=== PATIENT | female | born 1990 | race Hispanic/Latino ===

== ENCOUNTER 2018-02-25 02:16 | Emergency (ER) | payer OTHER ==
[2018-02-25 03:26] LABS: Absolute Lymphocytes (CBC) 1.8 K/uL (0.7-4.9); Absolute Monocytes 0.6 K/uL (0.1-1.3); Basophils % 0.6 % (0-1.3); Eosinophils % 0.7 % (0-4.4); Hematocrit 30.3 % (36.0-45.0); Lymphocytes % 20.7 % (15.3-44.8); MCH 31.7 pg (27.0-35.0); MCV 90.8 fL (80-100); MPV 8.3 fL (7.6-11.3); Monocytes % 7.5 % (3.3-12.3); RBC Red Blood Cell Count 3.33 M/uL (3.86-4.86)
[2018-02-25] MEDS ORDERED: PROMETHAZINE 25 MG/ML VIAL ONE (03:29)
[2018-02-25] MEDS ORDERED: ACETAMINOPHEN 500 MG TAB ONE (03:29)
[2018-02-25] MEDS ORDERED: NA CHLORIDE 0.9% 500 ML ONE (03:29)
[2018-02-25] MEDS ORDERED: NA CHLORIDE 0.9% 50 ML IV ONE (03:30)
[2018-02-25 03:48] LABS: ALT/SGPT 20 U/L (12-78); AST/SGOT 20 U/L (15-37); Albumin 2.6 g/dL (3.4-5.0); Alkaline Phosphatase 79 U/L (45-117); BUN Blood Urea Nitrogen 8 mg/dL (7-18); Bicarbonate 25 mmol/L (21-32); Bilirubin Direct < 0.1 mg/dL (0-0.2); Bilirubin Total 0.2 mg/dL (0.2-1.0); Glucose Level 76 mg/dL (74-106); Potassium 3.6 mmol/L (3.5-5.1); Protein, Total 6.5 g/dL (6.4-8.2); Sodium Level 142 mmol/L (136-145)
[2018-02-25 03:52] LABS: Urine Blood TRACE (NEG); Urine Glucose NEGATIVE (NEG); Urine Protein NEGATIVE (NEG); Urine Specific Gravity >1.030 (1.005-1.030); Urine pH 6.5 (5.0-7.0)
[2018-02-25 03:53] LABS: Urine Amorphous Sediment 3+ /HPF (NONE SEEN); Urine Bacteria <20 /HPF (<20); Urine Culture Reflex Order NOT NEEDED; Urine RBC NONE SEEN /HPF (NONE SEEN)
--- NOTE | 2018-02-25 05:43 | ER ---
Nurse's Notes [facility] Name: Felicity Anaya Age: 27 yrs Sex: Female : 1990 Arrival Date: 02/25/2018 Time: 02:17 Bed 17 Private MD: Diagnosis: Lower abdominal pain in ;lower pelvic pain in Presentation: 02/25 02:20 Presenting complaint: Patient states: lower abdominal pain since last night and cc3 vomiting once. Transition of care: patient was not received from another setting of care. Onset of symptoms was February 24, 2018. Risk Assessment: Do you want to hurt yourself or someone else? Patient reports no desire to harm self or others. Initial Sepsis Screen: Does the patient meet any 2 criteria? No. Patient's initial sepsis screen is negative. Does the patient have a suspected source of infection? No. Patient's initial sepsis screen is negative. Care prior to arrival: None. 02:20 Method Of Arrival: Ambulatory cc3 02:20 Acuity: MARCOS 3 cc3 Triage Assessment: 02:20 General: Appears in no apparent distress. comfortable, Behavior is calm, cooperative, cc3 appropriate for age. Pain: Complains of pain in lower abdominal pain Pain currently is 8 out of 10 on a pain scale. Quality of pain is described as aching. EENT: No signs and/or symptoms were reported regarding the EENT system. Neuro: Level of Consciousness is awake, alert, obeys commands, Oriented to person, place, time, situation, Appropriate for age. Cardiovascular: Denies chest pain. Respiratory: Airway is patent Respiratory effort is even, unlabored, Respiratory pattern is regular, symmetrical. GI: Reports lower abdominal pain, vomiting. : No signs and/or symptoms were reported regarding the genitourinary system. Derm: No signs and/or symptoms reported regarding the dermatologic system. Musculoskeletal: Circulation, motion, and sensation intact. Range of motion: intact in all extremities. TELEPHONIC RN: 02:20 patient said she is 5 months cc3 Historical: - Allergies: 02:20 No Known Allergies; cc3 - Home Meds: 02:20 None [Active]; cc3 - PMHx: 02:20 Ovarian cyst; cc3 - Immunization history:: Adult Immunizations up to date. - Social history:: Smoking status: Patient/guardian denies using tobacco, never smoked. - Ebola Screening: : No symptoms or risks identified at this time. - Family history:: not pertinent. - Hospitalizations: : No recent hospitalization is reported. The patient was recently seen at [facility]. Screenin:20 Abuse screen: Denies threats or abuse. Denies injuries from another. Nutritional cc3 screening: No deficits noted. Tuberculosis screening: No symptoms or risk factors identified. Fall Risk Ambulatory Aid- None/Bed Rest/Nurse Assist (0 pts). Gait- Normal/Bed Rest/Wheelchair (0 pts) Mental Status- Oriented to own ability (0 pts). Assessment: 02:20 GI: Bowel sounds present X 4 quads. Abd is soft and non tender X 4 quads. cc3 02:25 General: see triage assessment. cc3 03:30 Reassessment: Patient appears in no apparent distress at this time. Patient and/or cc3 family updated on plan of care and expected duration. Pain level reassessed. Patient is alert, oriented x 3, equal unlabored respirations, skin warm/dry/pink. 04:40 Reassessment: Patient appears in no apparent distress at this time. Patient and/or cc3 family updated on plan of care and expected duration. Pain level reassessed. Patient is alert, oriented x 3, equal unlabored respirations, skin warm/dry/pink. Patient came back from ultrasound department. 05:50 Reassessment: Patient appears in no apparent distress at this time. Patient and/or cc3 family updated on plan of care and expected duration. Pain level reassessed. Patient is alert, oriented x 3, equal unlabored respirations, skin warm/dry/pink. Dr. Maguire discharged the patient home no prescription was given. IV cannula removed and patient left ER vitally stable and ambulatory with her . Patient states feeling better. Vital Signs: 02:20 BP 112 / 65; Pulse 88; Resp 18 S; Temp 98.9(O); Pulse Ox 100% on R/A; Weight 80.74 kg; cc3 Height 5 ft. 3 in. (160.02 cm); 03:45 BP 104 / 58; Pulse 80; Resp 18 S; Pulse Ox 98% on R/A; cc3 04:30 BP 103 / 53; Pulse 83; Resp 18 S; Pulse Ox 97% on R/A; cc3 05:30 BP 104 / 67; Pulse 81; Resp 16 S; Pulse Ox 98% on R/A; cc3 02:20 Body Mass Index 31.53 (80.74 kg, 160.02 cm) cc3 ED Course: 02:17 Patient arrived in ED. ag3 02:20 Arm band placed on left wrist. cc3 02:20 Patient has correct armband on for positive identification. Bed in low position. Call cc3 light in reach. Side rails up X 1. 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 Pulse ox on. NIBP on. 02:38 Rebekah Price is Primary Nurse. cc3 02:38 Cj Maguire MD is Attending Physician. wa 02:40 Triage completed. cc3 03:00 Inserted saline lock: 20 gauge in right antecubital area, using aseptic technique. cc3 Blood collected. 04:16 Patient moved back from ultrasound. lisa 04:19 OB Limited In Process Unspecified. EDMS 05:50 No provider procedures requiring assistance completed. IV discontinued, intact, cc3 bleeding controlled, No redness/swelling at site. Pressure dressing applied. Administered Medications: 03:20 Drug: Tylenol 1000 mg Route: PO; cc3 04:00 Follow up: Response: No adverse reaction; Pain is decreased cc3 03:25 Drug: Phenergan 12.5 mg Route: IVP; Site: right antecubital; cc3 04:00 Follow up: Response: No adverse reaction cc3 03:25 Drug: NS 0.9% 500 ml Route: IV; Rate: bolus; Site: right antecubital; cc3 04:20 Follow up: Response: No adverse reaction; IV Status: Completed infusion; IV Intake: cc3 500ml Intake: 04:20 IV: 500ml; Total: 500ml. cc3 Outcome: 05:43 Discharge ordered by . wa 05:50 Discharged to home ambulatory. cc3 05:50 Condition: stable 05:50 Discharge instructions given to patient, family, Instructed on discharge instructions, follow up and referral plans. Demonstrated understanding of instructions, follow-up care. 05:58 Patient left the ED. cc3 Signatures: Dispatcher [employer] EDMS Brain Vázquez jd, William, MD MD wa Cordel, Charlene cc3 Bonnie Graves ag3
--- NOTE | 2018-02-25 05:44 | EDPHYS ---
Physician Documentation [facility] Name: Felicity Anaya Age: 27 yrs Sex: Female : 1990 Arrival Date: 02/25/2018 Time: 02:17 Bed 17 Private MD: ED Physician Cj Maguire HPI: 02/25 05:34 This 27 yrs old Female presents to ER via Ambulatory with complaints of wa Abdominal Pain. 05:34 The patient presents with abdominal pain in the lower abdomen. Onset: The wa symptoms/episode began/occurred yesterday. The symptoms do not radiate. Associated signs and symptoms: Pertinent positives: nausea, Pertinent negatives: diarrhea, vomiting. The symptoms are described as achy. Modifying factors: The symptoms are alleviated by nothing, the symptoms are aggravated by nothing. Severity of pain: At its worst the pain was moderate in the emergency department the pain has improved. The patient has not experienced similar symptoms in the past. The patient has not recently seen a physician. pt is 5 months with good care. denies vag bleed or discharge. DIRECTOR CALL: 02:20 patient said she is 5 months cc3 Historical: - Allergies: 02:20 No Known Allergies; cc3 - Home Meds: 02:20 None [Active]; cc3 - PMHx: 02:20 Ovarian cyst; cc3 - Immunization history:: Adult Immunizations up to date. - Social history:: Smoking status: Patient/guardian denies using tobacco, never smoked. - Ebola Screening: : No symptoms or risks identified at this time. - Family history:: not pertinent. - Hospitalizations: : No recent hospitalization is reported. The patient was recently seen at [facility]. ROS: 05:36 Constitutional: Negative for fever, chills, and weight loss, Eyes: Negative for injury, wa pain, redness, and discharge, ENT: Negative for injury, pain, and discharge, Neck: Negative for injury, pain, and swelling, Cardiovascular: Negative for chest pain, palpitations, and edema, Respiratory: Negative for shortness of breath, cough, wheezing, and pleuritic chest pain, Back: Negative for injury and pain, : Negative for injury, bleeding, discharge, and swelling, MS/Extremity: Negative for injury and deformity, Skin: Negative for injury, rash, and discoloration, Neuro: Negative for headache, weakness, numbness, tingling, and seizure, Psych: Negative for depression, anxiety, suicide ideation, homicidal ideation, and hallucinations. 05:36 Abdomen/GI: Positive for abdominal pain, nausea, vomiting, and diarrhea, nausea, Negative for vomiting, diarrhea, constipation. 05:36 All other systems are negative. Exam: 05:36 Constitutional: This is a well developed, well nourished patient who is awake, alert, wa and in no acute distress. Head/Face: Normocephalic, atraumatic. Eyes: Pupils equal round and reactive to light, extra-ocular motions intact. Lids and lashes normal. Conjunctiva and sclera are non-icteric and not injected. Cornea within normal limits. Periorbital areas with no swelling, redness, or edema. ENT: Nares patent. No nasal discharge, no septal abnormalities noted. Tympanic membranes are normal and external auditory canals are clear. Oropharynx with no redness, swelling, or masses, exudates, or evidence of obstruction, uvula midline. Mucous membranes moist. Neck: Trachea midline, no thyromegaly or masses palpated, and no cervical lymphadenopathy. Supple, full range of motion without nuchal rigidity, or vertebral point tenderness. No Meningismus. Chest/axilla: Normal chest wall appearance and motion. Nontender with no deformity. No lesions are appreciated. Cardiovascular: Regular rate and rhythm with a normal S1 and S2. No gallops, murmurs, or rubs. Normal PMI, no JVD. No pulse deficits. Respiratory: Lungs have equal breath sounds bilaterally, clear to auscultation and percussion. No rales, rhonchi or wheezes noted. No increased work of breathing, no retractions or nasal flaring. Back: No spinal tenderness. No costovertebral tenderness. Full range of motion. Skin: Warm, dry with normal turgor. Normal color with no rashes, no lesions, and no evidence of cellulitis. MS/ Extremity: Pulses equal, no cyanosis. Neurovascular intact. Full, normal range of motion. Neuro: Awake and alert, GCS 15, oriented to person, place, time, and situation. Cranial nerves II-XII grossly intact. Motor strength 5/5 in all extremities. Sensory grossly intact. Cerebellar exam normal. Normal gait. Psych: Awake, alert, with orientation to person, place and time. Behavior, mood, and affect are within normal limits. 05:37 Abdomen/GI: Inspection: abdomen appears normal, Bowel sounds: normal, in all quadrants, wa Palpation: soft, in all quadrants, mild abdominal tenderness, in the suprapubic area, right lower quadrant and left lower quadrant. Vital Signs: 02:20 BP 112 / 65; Pulse 88; Resp 18 S; Temp 98.9(O); Pulse Ox 100% on R/A; Weight 80.74 kg; cc3 Height 5 ft. 3 in. (160.02 cm); 03:45 BP 104 / 58; Pulse 80; Resp 18 S; Pulse Ox 98% on R/A; cc3 04:30 BP 103 / 53; Pulse 83; Resp 18 S; Pulse Ox 97% on R/A; cc3 05:30 BP 104 / 67; Pulse 81; Resp 16 S; Pulse Ox 98% on R/A; cc3 02:20 Body Mass Index 31.53 (80.74 kg, 160.02 cm) 3 MDM: 02:38 Patient medically screened. or 05:37 Differential diagnosis: r/o infection. check pelvis US to assess for pathology. or Data reviewed: vital signs, nurses notes. 05:39 Test interpretation: by ED physician or midlevel provider: labs noted for anemia. wa otherwise wnl. Pelvic US FHR 147. no acute process . 02/25 02:50 Order name: Urine Dipstick--Ancillary (enter results); Complete Time: 04:09 nj 02/25 02:50 Order name: Urine --Ancillary (enter results); Complete Time: 04:10 nj 02/25 02:59 Order name: Basic Metabolic Panel; Complete Time: 04:10 or 02/25 02:59 Order name: CBC with Diff; Complete Time: 04:10 or 02/25 02:59 Order name: Urine Microscopic Only; Complete Time: 04:10 or 02/25 02:59 Order name: LFT's; Complete Time: 04:09 or 02/25 02:59 Order name: IV Saline Lock; Complete Time: 03:21 or 02/25 02:59 Order name: Labs collected and sent; Complete Time: 03:21 or 02/25 02:59 Order name: NPO; Complete Time: 03:34 or 02/25 04:19 Order name: OB Limited EDNY 02/25 02:59 Order name: Urine Dipstick-Ancillary (obtain specimen); Complete Time: 03:24 wa Administered Medications: 03:20 Drug: Tylenol 1000 mg Route: PO; cc3 04:00 Follow up: Response: No adverse reaction; Pain is decreased cc3 03:25 Drug: Phenergan 12.5 mg Route: IVP; Site: right antecubital; cc3 04:00 Follow up: Response: No adverse reaction cc3 03:25 Drug: NS 0.9% 500 ml Route: IV; Rate: bolus; Site: right antecubital; cc3 04:20 Follow up: Response: No adverse reaction; IV Status: Completed infusion; IV Intake: cc3 500ml Disposition: 02/25/18 05:43 Discharged to Home. Impression: Lower abdominal pain in , lower pelvic pain in . - Condition is Stable. - Discharge Instructions: Abdominal Pain During . - Medication Reconciliation Form, Thank You Letter, Antibiotic Education, Prescription Opioid Use form. - Follow up: Private Physician; When: 2 - 3 days; Reason: Recheck today's complaints. - Problem is new. - Symptoms have improved. Signatures: Dispatcher [employer] [facility] Cj Maguire MD MD wa Cordel, Charlene cc3 Corrections: (The following items were deleted from the chart) 04:19 03:00 Pelvis Complete+US.RAD.BRZ ordered. [facility] EDNY 05:58 05:43 02/25/2018 05:43 Discharged to Home. Impression: Lower abdominal pain in cc3 ; lower pelvic pain in . Condition is Stable. Forms are Medication Reconciliation Form, Thank You Letter, Antibiotic Education, Prescription Opioid Use. Follow up: Private Physician; When: 2 - 3 days; Reason: Recheck today's complaints. Problem is new. Symptoms have improved. wa
[2018-02-25 06:02] VITALS: TEMP 98.9
[2018-02-25 06:04] VITALS: BP 103/53; O2SAT 97
--- NOTE | 2018-02-25 09:08 | RAD REPORT ---
EXAM DESCRIPTION: US - OB Limited - 02/25/2018 4:19 am CLINICAL HISTORY: , right-sided pelvic pain Preliminary findings provided at the time of the study. COMPARISON: None. TECHNIQUE: Limited OB sonography performed. FINDINGS: Single intrauterine gestation was confirmed. Heart rate was 146 BPM. Placenta is anterior with no acute finding. Right adnexa assessment shows mostly bowel. No suspicious findings noted though examination is consid ered limited. Ovary was not seen. Appendix was not seen. IMPRESSION: Single intrauterine gestation with normal heart rate. No placenta abnormality seen. Feta l anatomy was not further evaluated. No gross abnormality of the right adnexa which was mostly limited by bowel. Ovary and appendix were n ot visualized.
== END 2018-02-25 05:58 | disposition home or self-care (01) ==
LOC: ER 02:16
DX: O26.892 Other specified pregnancy related conditions, second trimester (principal)
CPT/HCPCS: 36415; 76815; 80048; 80076; 81003; 81015; 81025; 85025; 96361; 96374; 99285; J2550

== ENCOUNTER 2019-01-26 17:33 | Emergency (ER) | payer OTHER, SELFPAY ==
--- OUTSIDE RECORDS SUMMARY | 2019-01-26 17:35 | XMS REPORT ---
:1990 Author Organization [facility] Address [address] Hernandez [address] [place] [id number] Care Team Providers Name Role Phone Unavailable Unavailable Unavailable Problems This patient has no known problems. Allergies, Adverse Reactions, Alerts This patient has no known allergies or adverse reactions. Medications This patient has no known medications.
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
[2019-01-26 18:48] VITALS: BP 132/82; TEMP 98.3; O2SAT 100
== END 2019-01-26 18:43 | disposition home or self-care (01) ==
LOC: ER 17:33
DX: S16.1XXA Strain of muscle, fascia and tendon at neck level, initial encounter (principal); V49.40XA Driver injured in collision with unspecified motor vehicles in traffic accident, initial encounter
CPT/HCPCS: 99281

== ENCOUNTER 2019-08-06 14:59 | Emergency (ER) | payer OTHER ==
--- OUTSIDE RECORDS SUMMARY | 2019-08-06 15:08 | XMS REPORT | Summary of Care ---
:1990 Author Organization [facility] Address [address] [place] [id number] Care Team Providers Name Role Phone Alyse Stuart Primary Care Provider Reason for Referral (Routine) Status Reason Specialty Diagnoses / Referred By Referred To Procedures Contact Contact New Request Maternal Diagnoses Supervision of high risk in first trimester Alyse Stuart Medicine Procedures CONSULT MATERNAL MEDICINE ULTRASOUND Preferred Location: ODALIS Betancourt [address] [place] [address] Reason for Visit Reason Comments Care Encounter Details Date Type Department Care Team Description 06/25/2019 Routine [facility]- Alyse Stuart Supervision of high risk in first trimester (Primary Dx); Visit ODALIS Betancourt Previous delivery affecting , antepartum; [address] [facility] [address] [facility] Desire (vaginal after ) trial; [facility] History of ; [address] [place], [place] Multiparity; [phone] Obesity in , antepartum [phone] Allergies No Known Allergiesdocumented as of this encounter (statuses as of 06/25/2019) Medications Medication Sig Dispensed Refills Start Date End Date Status PNV 67-iron ps-folate Take 1 capsule by 30 capsule 11 05/22/2019 Active no.1-dha (VITAFOL mouth daily. ULTRA) 29 mg iron- 1 mg-200 mg CapIndications: Supervision of high risk in first trimester vit Take 1 Packet by 30 Each 6 05/28/2019 Active 62-jire-ebuxe-dha mouth daily. (SELECT-OB + DHA) 29 mg iron-1 mg -250 mg combo packIndications: Supervision of high risk in first trimester documented as of this encounter (statuses as of 06/25/2019) Active Problems Problem Noted Date Abnormal glucose affecting 05/28/2019 Encounter for immunization 04/30/2019 Desires (vaginal after ) trial 04/30/2019 History of 07/01/2018 Multiparity 05/02/2018 Supervision of high risk in first trimester 11/08/2017 Obesity in , antepartum 11/08/2017 Previous delivery affecting , antepartum 11/08/2017 Overview: Per EPIC notes, pt requested c/s due to painful ovarian cysts that was removed during c/s-ROR for MOTLEY requested History of intrauterine in previous 11/08/2017 Overview: Due to nuchal cord and umbilical knot at 37/1 (see EPIC records from 2010) History of ovarian cyst 11/08/2017 Estimated Date of Delivery Comments Yes 01/01/2020 Based on last menstrual period of 03/27/2019 (Approximate) documented as of this encounter (statuses as of 06/25/2019) Resolved Problems Problem Noted Date Resolved Date Liveborn infant by vaginal delivery 07/02/2018 04/30/2019 Vaginal after , delivered, current 07/02/2018 04/30/2019 hospitalization Obesity (BMI 30-39.9) 07/01/2018 04/30/2019 39 weeks gestation of 07/01/2018 04/30/2019 GBS (group B Streptococcus carrier), +RV culture, currently 06/16/20182018 Needs flu shot 04/18/2018 04/30/2019 Need for Tdap vaccination 04/18/2018 04/30/2019 Acute nasopharyngitis 04/18/2018 04/30/2019 Pelvic mass 10/23/2014 11/08/2017 Ovarian mass 10/21/2014 10/23/2014 Immunizations up to date 06/28/2014 10/23/2014 History of section 06/28/2014 11/08/2017 First degree perineal laceration during delivery 03/30/2011 10/23/2014 Overview: ICD10 Diagnosis Term Computerized Table Cutter Utility IUFD (intrauterine ) 03/30/2011 10/23/2014 documented as of this encounter (statuses as of 06/25/2019) Immunizations Name Administration Dates Next Due HEPATITIS A 03/17/2006 Influenza Virus Vaccine Quad .5 mL IM 6+ MO 04/30/2019, 04/18/2018 Influenza Virus Vaccine Quad IM 3+ YRS 10/23/2014 Meningococcal Vaccine 03/17/2006 Tdap 04/18/2018, 05/16/2012 documented as of this encounter Social History Tobacco Use Types Packs/Day Years Used Date Never Smoker Smokeless Tobacco: Never Used Alcohol Use Drinks/Week oz/Week Comments Not Currently Estimated Date of Delivery Comments Yes 01/01/2020 Based on last menstrual period of 03/27/2019 (Approximate) Sex Assigned at Date Recorded Not on file Job Start Date Occupation Industry Not on file Not on file Not on file Travel History Travel Start Travel End No recent travel history available. documented as of this encounter Last Filed Vital Signs Vital Sign Reading Time Taken Comments Blood Pressure 116/70 06/25/2019 9:09 AM LABORER SYRUP MACHINE Pulse 85 06/25/2019 9:09 AM LABORER SYRUP MACHINE Temperature 36.7 C (98.1 F) 06/25/2019 9:09 AM LABORER SYRUP MACHINE Respiratory Rate 16 06/25/2019 9:09 AM LABORER SYRUP MACHINE Oxygen Saturation - - Inhaled Oxygen Concentration - - Weight 89 kg (196 lb 2 oz) 06/25/2019 9:09 AM LABORER SYRUP MACHINE Height 157.5 cm (5' 2") 06/25/2019 9:09 AM LABORER SYRUP MACHINE Body Mass Index 35.87 06/25/2019 9:09 AM LABORER SYRUP MACHINE documented in this encounter Progress Notes Alyse Stuart R, TEACHING MANAGER - 06/25/2019 8:30 AM CST Chief complaint: Chief Complaint Patient presents with Care HPI CC: Follow Up Visit Felicity Anaya is a 29 year old, , /White female. Patient's last menstrual period was 03/27/2019 (approximate). She is 12w6d with an intrauterine . Her estimated date of delivery is 01/01/2020, by Last Menstrual Period. She has no complaints today. She reports +FM and deniescontractions, LOF and bleeding today.Patient denies current or past physical, sexual or emotional abuse. Histories OB History Para Term AB Living 4 3 3 0 2 SAB TAB Ectopic Multiple Live Births 2 # Outcome Date GA Lbr Antwon/2nd Weight Sex Delivery Anes PTL Lv 4 Current 3 Term 07/01/18 39w0d M NORMAL SPONT HENNA 2 Term 01/23/13 40w0d M SEC HENNA 1 Term 03/30/11 37w1d VAGINAL FD Past Medical History: Diagnosis Date STD (sexually transmitted disease) 2010 chlamydia, treated Family History Problem Relation Age of Onset Diabetes Mother No Significant Medical Problems Father No Significant Medical Problems Sister No Significant Medical Problems Brother Hypertension Maternal Aunt No Significant Medical Problems Maternal Uncle No Significant Medical Problems Paternal Aunt No Significant Medical Problems Paternal Uncle Heart Maternal Grandmother Heart Maternal Grandfather No Significant Medical Problems Paternal Grandmother No Significant Medical Problems Paternal Grandfather Arthritis NoFHx Asthma NoFHx defects NoFHx Breast Cancer NoFHx Colon Cancer NoFHx Ovarian Cancer NoFHx Uterine Cancer NoFHx Cancer NoFHx Depression NoFHx Genetic NoFHx High cholesterol NoFHx Mental retardation NoFHx Neurological NoFHx Other - see comments NoFHx Osteoporosis NoFHx Psychiatry NoFHx Family Status Relation Name Status Mo Alive Fa Sis Alive Bro Alive MAunt Alive MUnc Alive PAunt Alive PUnc Alive MGMo MGFa PGMo PGFa NoFHx (Not Specified) Past Surgical History: Procedure Laterality Date SECTION 2012 EXPLORATORY LAPAROTOMY N/A 10/21/2014 Surgeon: Salty Renae MD; Location: [facility] MASS EXCISION 10/21/2014 & 10/2015 Social History Socioeconomic History Marital status: Spouse name: Not on file Number of children: Not on file Years of education: Not on file Highest education level: Not on file Occupational History Not on file Social Needs Financial resource strain: Not on file Food insecurity: Worry: Not on file Inability: Not on file Transportation needs: Medical: Not on file Non-medical: Not on file Tobacco Use Smoking status: Never Smoker Smokeless tobacco: Never Used Substance and Sexual Activity Alcohol use: Not Currently Drug use: No Sexual activity: Yes Partners: Male control/protection: None Comment: last intercourse 04/08/2019 Lifestyle Physical activity: Days per week: Not on file Minutes per session: Not on file Stress: Not on file Relationships Social connections: Talks on phone: Not on file Gets together: Not on file Attends protestant service: Not on file Active member of club or organization: Not on file Attends meetings of clubs or organizations: Not on file Relationship status: Not on file Intimate partner violence: Fear of current or ex partner: Not on file Emotionally abused: Not on file Physically abused: Not on file Forced sexual activity: Not on file Other Topics Concern Not on file Social History Narrative Denies physical and sexual abuse. Evangelical preference none. Patient lives with mother and children. Social History Substance and Sexual Activity Sexual Activity Yes Partners: Male control/protection: None Comment: last intercourse 04/08/2019 Labs No new labs Radiology Radiology pending. Allergies Felicity has No Known Allergies. Medications Felicity has a current medication list which includes the following prescription( s): vit 41-cmpz-tuari-dha and pnv 67-iron ps-folate no.1-dha. Review of Systems Eyes: Negative for visual disturbance. Cardiovascular: Negative for leg swelling. Gastrointestinal: Negative for abdominal pain, nausea and vomiting. Genitourinary: Negative for vaginal bleeding, vaginal discharge and pelvic pain. Neurological: Negative for headaches. BP 116/70 (BP Location: Right arm, Patient Position: Sitting, BP CUFF SIZE: Adult Medium) | Pulse 85 | Temp 36.7 C (98.1 F) (Oral) | Resp 16 | Ht 5 ' 2" (1.575 m) | Wt 196 lb 2 oz (89 kg) | LMP 03/27/2019 (Approximate) | BMI 35.87 kg/m Pregravid BMI: 32.2 Physical Exam PHYSICAL: General Exam: Neurological: Normal Abdomen: Normal Extremities: Normal Pelvic Exam: Uterus: 14cm Weeks Assessment/Plan Supervision of high risk in first trimester (primary encounter diagnosis) Previous delivery affecting , antepartum Desires (vaginal after ) trial History of Multiparity Comment: Routine Visit Plan: POCT URINALYSIS GLUCOSE & PROTEIN Denies zika virus risk, signs and symptoms such as fever,rash,joint pain, conjunctivitis (red eyes), muscle pain, headaches; outside [place] travel to areas affected by zika, and FOB exposure to zika.Educated on use of mosquito repellent. Obesity in , antepartum Comment: See BMI Plan: Patient encouraged to limit weight gain and sensible diet. Return to clinic in 2 weeks. Discussed treatment options. Medications as ordered. Reviewed patient instructions and provided printed copy. This visit did not involve counseling and coordination that comprised more than 50% of the visit time. ODALIS Soliman 06/25/2019 9:58 AM documented in this encounter Plan of Treatment Date Type Specialty Care Team Description 07/09/2019 Routine Visit OB Satellites Alyse Stuart FNP [address] [place] [address] [phone] Health Maintenance Due Date Last Done Comments PAP SMEAR 11/08/2020 11/08/2017, 04/29/2011 DTaP,Tdap,and Td Vaccines (3 04/18/2028 04/18/2018, - Td) 05/16/2012 INFLUENZA VACCINE Completed 04/30/2019, 04/18/2018, 10/23/2014 PNEUMOCOCCAL 0-64 YEARS Aged Out No longer eligible based COMBINED SERIES on patient's age to complete this topic documented as of this encounter Procedures Procedure Name Priority Date/Time Associated Diagnosis Comments POCT URINALYSIS Routine 06/25/2019 9:12 Supervision of high Results for this GLUCOSE & PROTEIN AM LABORER SYRUP MACHINE risk in procedure are in first trimester the results section. documented in this encounter Results POCT URINALYSIS GLUCOSE & PROTEIN (06/25/2019 9:12 AM LABORER SYRUP MACHINE) POCT U PROT neg Negative - Negative POCT U GLU neg Negative - Negative Specimen Urine - URINE, CLEAN CATCH documented in this encounter Visit Diagnoses Diagnosis Supervision of high risk in first trimester - Primary Unspecified high-risk Previous delivery affecting , antepartum Previous delivery, antepartum condition or complication Desires (vaginal after ) trial Previous delivery, unspecified as to episode of care or not applicable History of Previous delivery, delivered, with or without mention of antepartum condition Multiparity Obesity in , antepartum Obesity complicating , childbirth, or the puerperium, antepartum condition or complication documented in this encounter Insurance Payer Benefit Plan / Subscriber ID Effective Phone Address Type Group Dates [employer] xxxxxxxxx 2019-Estevan BENEDICT Medicaid HEALTH CHOICE - HEALTH CHOICE [id number] MANAGED MEDICAID [place], [place] MEDICAID [phone] documented as of this encounter Advance Directives Name Relationship Healthcare Agent Relationship Communication Tawana Apple Mother Primary healthcare agent
--- OUTSIDE RECORDS SUMMARY | 2019-08-06 15:08 | XMS REPORT ---
:1990 Author Organization [facility] Address [address] Hernandez [address] [place] [address] Care Team Providers Name Role Phone Unavailable Unavailable Unavailable Problems This patient has no known problems. Allergies, Adverse Reactions, Alerts This patient has no known allergies or adverse reactions. Medications This patient has no known medications.
--- OUTSIDE RECORDS SUMMARY | 2019-08-06 15:08 | XMS REPORT | Summary of Care ---
:1990 Author Organization [facility] Address [address] [place] [address] Care Team Providers Name Role Phone Alyse Stuart Primary Care Provider Reason for Referral (Routine) Status Reason Specialty Diagnoses / Referred By Referred To Procedures Contact Contact New Request Maternal Diagnoses Supervision of high risk in first trimester Alyse Stuart Medicine Procedures CONSULT MATERNAL MEDICINE ULTRASOUND Preferred Location: ODLAIS Betancourt [address] [place] [address] Reason for Visit Reason Comments Care Encounter Details Date Type Department Care Team Description 07/09/2019 Routine [facility]- Alyse Stuart Supervision of high risk in first trimester (Primary Dx); Visit ODALIS Betancourt History of intrauterine in previous ; [address] [facility] [address] Previous delivery affecting , antepartum; [place], [place] History of ; [address] [place], [place] Desires (vaginal after ) trial; [phone] Multiparity; [phone] Obesity in , antepartum Allergies No Known Allergiesdocumented as of this encounter (statuses as of 07/09/2019) Medications Medication Sig Dispensed Refills Start Date End Date Status PNV 67-iron ps-folate Take 1 capsule by 30 capsule 11 05/22/2019 Active no.1-dha (VITAFOL mouth daily. ULTRA) 29 mg iron- 1 mg-200 mg CapIndications: Supervision of high risk in first trimester vit Take 1 Packet by 30 Each 6 05/28/2019 Active 55-nkfv-rfhql-dha mouth daily. (SELECT-OB + DHA) 29 mg iron-1 mg -250 mg combo packIndications: Supervision of high risk in first trimester documented as of this encounter (statuses as of 07/09/2019) Active Problems Problem Noted Date Abnormal glucose [...] as of this encounter (statuses as of 07/09/2019) Resolved Problems Problem Noted Date Resolved Date Liveborn by vaginal delivery 07/02/2018 04/30/2019 Vaginal after [...] delivery 03/30/2011 10/23/2014 Overview: ICD10 Diagnosis Term Medicine Worker Utility IUFD (intrauterine ) 03/30/2011 10/23/2014 documented as of this encounter (statuses as of 07/09/2019) Immunizations Name Administration Dates Next Due HEPATITIS [...] Sign Reading Time Taken Comments Blood Pressure 102/63 07/09/2019 11:21 AM CLERK CARRIER Pulse 77 07/09/2019 11:21 AM CLERK CARRIER Temperature 36.7 C (98 F) 07/09/2019 11:21 AM CLERK CARRIER Respiratory Rate 16 07/09/2019 11:21 AM CLERK CARRIER Oxygen Saturation - - Inhaled Oxygen Concentration - - Weight 88 kg (194 lb) 07/09/2019 11:21 AM CLERK CARRIER Height 157.5 cm (5' 2") 07/09/2019 11:21 AM CLERK CARRIER Body Mass Index 35.48 07/09/2019 11:21 AM CLERK CARRIER documented in this encounter Progress Notes Alyse Stuart, ODALIS - 07/09/2019 11:00 AM CST Chief complaint: Chief Complaint Patient presents with Care HPI CC: Follow Up Visit Felicity Anaya is a 29 year old, , /White female. Patient's last menstrual period was 03/27/2019 (approximate). She is 14w6d with an intrauterine . Her estimated date of delivery is 01/01/2020, by Last Menstrual Period. She has no complaints today. She denies FM, contractions, LOF and bleeding today. Patient denies current or past physical, sexual or [...] N/A 10/21/2014 Surgeon: Salty Renae MD; Location: [facility] MASS EXCISION 10/21/2014 & 10/2015 Social History [...] file Gets together: Not on file Attends gnosticism service: Not on file Active member of [...] History Narrative Denies physical and sexual abuse. Yazdanism preference none. Patient lives with mother and children. Social History Substance and Sexual Activity Sexual Activity Yes Partners: Male control/protection: None Comment: last intercourse 04/08/2019 Labs No new labs Radiology Radiology pending. Allergies Felicity has No Known Allergies. Medications Felicity has a current medication list which includes the following prescription( s): vit 51-lnqh-qstim-dha and pnv 67-iron ps-folate no.1-dha. Review of Systems Eyes: Negative for visual disturbance. Cardiovascular: Negative for leg swelling. Gastrointestinal: Negative for abdominal pain, nausea and vomiting. Genitourinary: Negative for vaginal bleeding, vaginal discharge and pelvic pain. Neurological: Negative for headaches. BP 102/63 (BP Location: Right arm, Patient Position: Sitting, BP CUFF SIZE: Adult Medium) | Pulse 77 | Temp 36.7 C (98 F) (Oral) | Resp 16 | Ht 5' 2 " (1.575 m) | Wt 194 lb (88 kg) | LMP 03/27/2019 (Approximate) | BMI 35.48 kg /m Pregravid BMI: 32.2 Physical Exam PHYSICAL: General Exam: Neurological: Normal Abdomen: Normal Extremities: Normal Pelvic Exam: Uterus: 15cm Weeks Assessment/Plan Supervision of high risk in first trimester (primary encounter diagnosis) History of intrauterine in previous Previous delivery affecting , antepartum History of Desires (vaginal after ) trial Multiparity Comment: Routine Visit Plan: POCT URINALYSIS W/O SPECIFIC GRAVITY, CONSULT MATERNAL MEDICINE ULTRASOUND Preferred Location: [place] Denies zika virus risk, signs and symptoms such as fever,rash,joint pain, conjunctivitis (red eyes), muscle pain, headaches; outside [place] travel to areas affected by zika, and FOB exposure to zika.Educated on use of mosquito repellent. Obesity in , antepartum Comment: BMI: 35.48 Plan: Patient encouraged to limit weight gain and advised to eat healthy diet, fruits, vegetables, increased fiber and water intake and protein low in fat. Encouraged exercise for 30 min everyday; begin regimen with caution to prevent injury. Encouraged to decrease BMI to <25. Return to clinic in 2 weeks. Discussed treatment options. Medications as ordered. Reviewed patient instructions and provided printed copy. This visit did not involve counseling and coordination that comprised more than 50% of the visit time. ODALIS Soliman 07/09/2019 12:14 PM documented in this encounter Plan of Treatment Date Type Specialty Care Team Description 08/07/2019 Routine Visit OB Satellites Alyse Stuart FNP [address] [place] [address] [phone] Health Maintenance Due Date Last Done Comments PAP SMEAR 11/08/2020 11/08/2017, 04/29/2011 DTaP,Tdap,and Td Vaccines (3 04/18/2028 04/18/2018, - Td) 05/16/2012 INFLUENZA VACCINE Completed 04/30/2019, 04/18/2018, 10/23/2014 PNEUMOCOCCAL 0-64 YEARS Aged Out No longer eligible based COMBINED SERIES on patient's age to complete this topic documented as of this encounter Procedures Procedure Name Priority Date/Time Associated Diagnosis Comments POCT URINALYSIS W/O Routine 07/09/2019 11:31 Supervision of high Results for this SPECIFIC GRAVITY AM CLERK CARRIER risk in procedure are in first trimester the results section. documented in this encounter Results POCT URINALYSIS W/O SPECIFIC GRAVITY (07/09/2019 11:31 AM CLERK CARRIER) POCT PH U . 5 - 8 mg/dl POCT U LEUK EST . Negative - Negative POCT U NIT . Negative - Negative POCT U PROT trace Negative - Negative POCT U GLU negative Negative - Negative POCT U KETONE . Negative - Negative POCT U BLD . Negative - Negative Specimen Urine - URINE, CLEAN CATCH documented in this encounter Visit Diagnoses Diagnosis Supervision of high risk in first trimester - Primary Unspecified high-risk History of intrauterine in previous Previous delivery affecting , antepartum Previous delivery, antepartum condition or complication History of Previous delivery, delivered, with or without mention of antepartum condition Desires (vaginal after ) trial Previous delivery, unspecified as to episode of care or not applicable Multiparity Obesity in , antepartum Obesity complicating , childbirth, or the puerperium, antepartum condition or complication documented in this encounter Insurance Payer Benefit Plan / Subscriber ID Effective Phone Address Type Group [facility] xxxxxxxxx 2019-Prese [address] Medicaid HEALTH CHOICE - HEALTH CHOICE [id number] MANAGED MEDICAID [place], [place] MEDICAID [id number] documented as of this encounter Advance Directives Name Relationship Healthcare Agent Relationship Communication Tawana Apple Mother Primary healthcare agent
--- OUTSIDE RECORDS SUMMARY | 2019-08-06 15:08 | XMS REPORT | Summary of Care ---
:1990 Author Organization [facility] Address [address] [place] [address] Care Team Providers Name Role Phone Alyse Stuart Primary Care Provider Encounter Details Date Type Department Care Team Description 06/06/2019 Abstract [facility] Alyse Stuart, [facility] [address] [facility] [address] [place] [address] [place] [address] [phone] Allergies No Known Allergiesdocumented as of this encounter (statuses as of 06/06/2019) Medications Medication Sig Dispensed Refills Start Date End Date Status PNV 67-iron ps-folate Take 1 capsule by 30 capsule 11 05/22/2019 Active no.1-dha (VITAFOL mouth daily. ULTRA) 29 mg iron- 1 mg-200 mg CapIndications: Supervision of high risk in first trimester vit Take 1 Packet by 30 Each 6 05/28/2019 Active 65-quam-xafuy-dha mouth daily. (SELECT-OB + DHA) 29 mg iron-1 mg -250 mg combo packIndications: Supervision of high risk in first trimester documented as of this encounter (statuses as of 06/06/2019) Active Problems Problem Noted Date Abnormal glucose [...] as of this encounter (statuses as of 06/06/2019) Resolved Problems Problem Noted Date Resolved Date [...] delivery 03/30/2011 10/23/2014 Overview: ICD10 Diagnosis Term Director Of Strategic Marketing Utility IUFD (intrauterine ) 03/30/2011 10/23/2014 documented as of this encounter (statuses as of 06/06/2019) Immunizations Name Administration Dates Next Due HEPATITIS [...] of this encounter Last Filed Vital Signs Not on filedocumented in this encounter Plan of Treatment Date Type Specialty Care Team Description 06/25/2019 Routine Visit OB Satellites Alyse Stuart, PLANT MAINTENANCE MANAGER [address] [place] [address] [phone] Health Maintenance Due Date Last Done Comments PAP SMEAR 11/08/2020 11/08/2017, 04/29/2011 DTaP,Tdap,and Td Vaccines (3 04/18/2028 04/18/2018, - Td) 05/16/2012 INFLUENZA VACCINE Completed 04/30/2019, 04/18/2018, 10/23/2014 PNEUMOCOCCAL 0-64 YEARS Aged Out No longer eligible based COMBINED SERIES on patient's age to complete this topic documented as of this encounter Results Not on filedocumented in this encounter Insurance Payer Benefit Plan / Subscriber ID Effective Phone Address Type Group Dates [employer] xxxxxxxxx 2019-Estevan BENEDICT Medicaid HEALTH CHOICE - HEALTH CHOICE nt [id number] MANAGED MEDICAID [place], [place] MEDICA[place] [phone] documented as of this encounter Advance Directives Name Relationship Healthcare Agent Relationship Communication Tawana Apple Mother Primary healthcare agent
--- OUTSIDE RECORDS SUMMARY | 2019-08-06 15:08 | XMS REPORT | Summary of Care ---
:1990 Author Organization [facility] Address [address] [place] [address] Care Team Providers Name Role Phone Alyse Stuart [facility] Primary Care Provider Reason for Visit Reason Comments Assessment 18 weeks ; having back and abdomen pain; vomitting Encounter Details Date Type Department Care Team Description 08/06/2019 Telephone [facility]- Aylse Stuart, Assessment (18 weeks [facility] ; having back [address] and abdomen pain; [place] [address] vomitting) [id number] Allergies No Known Allergiesdocumented as of this encounter (statuses as of 08/06/2019) Medications Medication Sig Dispensed Refills Start Date End Date Status PNV 67-iron ps-folate Take 1 capsule by 30 capsule 11 05/22/2019 Active no.1-dha (VITAFOL mouth daily. ULTRA) 29 mg iron- 1 mg-200 mg CapIndications: Supervision of high risk in first trimester vit Take 1 Packet by 30 Each 6 05/28/2019 Active 49-karp-hlcab-dha mouth daily. (SELECT-OB + DHA) 29 mg iron-1 mg -250 mg combo packIndications: Supervision of high risk in first trimester documented as of this encounter (statuses as of 08/06/2019) Active Problems Problem Noted Date Abnormal glucose [...] as of this encounter (statuses as of 08/06/2019) Resolved Problems Problem Noted Date Resolved Date [...] delivery 03/30/2011 10/23/2014 Overview: ICD10 Diagnosis Term Carpet Tile Layer Utility IUFD (intrauterine ) 03/30/2011 10/23/2014 documented as of this encounter (statuses as of 08/06/2019) Immunizations Name Administration Dates Next Due HEPATITIS [...] Description 08/07/2019 Routine Visit OB Satellites Alyse Stuart, SUPERVISOR [employer]ICATION[employer] [address] [place] [address] [phone] 08/07/2019 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
[2019-08-06] MEDS ORDERED: NA CHLORIDE 0.9% 1,000 ML ONE (15:50)
[2019-08-06 16:17] LABS: Absolute Lymphocytes (CBC) 0.7 K/uL (0.7-4.9); Basophils % 0.2 % (0-1.3); Hematocrit 36.3 % (36.0-45.0); Lymphocytes % 8.4 % (15.3-44.8); MPV 8.6 fL (7.6-11.3); RBC Red Blood Cell Count 4.12 M/uL (3.86-4.86)
[2019-08-06 16:23] LABS: Urine Blood NEGATIVE (NEG); Urine Glucose NEGATIVE (NEG); Urine Protein NEGATIVE (NEG); Urine Specific Gravity 1.025 (1.005-1.030); Urine pH 6.5 (5.0-7.0)
[2019-08-06 16:23] LABS: Urine Specific Gravity 1.025 (1.005-1.030)
[2019-08-06 16:35] LABS: ALT/SGPT 16 U/L (12-78); AST/SGOT 13 U/L (15-37); Albumin 2.7 g/dL (3.4-5.0); Alkaline Phosphatase 64 U/L (45-117); BUN Blood Urea Nitrogen 10 mg/dL (7-18); Bicarbonate 25 mmol/L (21-32); Bilirubin Direct < 0.1 mg/dL (0-0.2); Bilirubin Total 0.3 mg/dL (0.2-1.0); Glucose Level 87 mg/dL (74-106); Lipase 71 U/L (73-393); Potassium 3.5 mmol/L (3.5-5.1); Protein, Total 7.1 g/dL (6.4-8.2); Sodium Level 137 mmol/L (136-145)
[2019-08-06 16:44] LABS: Urine Bacteria <20 /HPF (<20); Urine Culture Reflex Order REFLEXED; Urine Mucus 1+ /HPF (NONE SEEN); Urine RBC <5 /HPF (NONE SEEN)
[2019-08-06] MEDS ORDERED: ACETAMINOPHEN 325 MG TABLET ONE (17:15)
[2019-08-06] MEDS ORDERED: PROMETHAZINE INJ 25 MG/ML AMP ONE (17:16)
[2019-08-06] MEDS ORDERED: CEFTRIAXONE/SWI 1gm 1 GM/10 ML SYR ONE (17:16)
[2019-08-06 17:34] LABS: Blood Morphology Comment NOT SEEN (NOT SEEN); Platelet Estimate ADEQ; Urine White Blood Cell Casts OK
--- NOTE | 2019-08-06 17:46 | ER ---
Nurse's Notes [facility] Name: Felicity Anaya Age: 29 yrs Sex: Female : 1990 Arrival Date: 08/06/2019 Time: 15:05 Bed 16 Private MD: Diagnosis: Urinary tract infection, site not specified Presentation: 08/05 15:17 Chief complaint: Patient states: Diffuse abdominal pain and back pain since Tuesday. ca1 This morning, reports N/V. Diarrhea the day before yesterday. Denies fever. 18 wks.. Coronavirus screen: Patient denies fever greater than 100.4F, cough, shortness of breath, or difficulty breathing. Proceed with normal triage process. Ebola Screen: Patient negative for fever greater than or equal to 101.5 degrees Fahrenheit, and additional compatible Ebola Virus Disease symptoms Patient denies exposure to infectious person. Patient denies travel to an Ebola-affected area in the 21 days before illness onset. No symptoms or risks identified at this time. Initial Sepsis Screen: Does the patient meet any 2 criteria? No. Patient's initial sepsis screen is negative. Does the patient have a suspected source of infection? No. Patient's initial sepsis screen is negative. Risk Assessment: Do you want to hurt yourself or someone else? Patient reports no desire to harm self or others. Onset of symptoms was August 06, 2019. 15:17 Method Of Arrival: Ambulatory ca1 15:17 Acuity: MARCOS 3 ca1 Historical: - Allergies: 15:20 No Known Allergies; ca1 - Home Meds: 15:20 Vitamin Oral [Active]; ca1 - PMHx: 15:20 Ovarian cyst; ca1 - PSHx: 15:20 ; ca1 - Immunization history:: Adult Immunizations up to date, Flu vaccine is up to date. - Social history:: Smoking status: Patient denies any tobacco usage or history of. Screenin:26 Abuse screen: Denies threats or abuse. Denies injuries from another. Nutritional ph screening: No deficits noted. Tuberculosis screening: No symptoms or risk factors identified. Fall Risk None identified. Assessment: 17:23 General: Appears in no apparent distress. uncomfortable, well groomed, Behavior is ph calm, cooperative, appropriate for age, Denies fever. Pain: Complains of pain in low back area and abdomen. Neuro: Level of Consciousness is awake, alert, obeys commands, Oriented to person, place, time, situation. Cardiovascular: No deficits noted. Respiratory: Airway is patent Respiratory effort is even, unlabored. GI: Abdomen is round Reports lower abdominal pain, diarrhea, nausea, vomiting. : Reports pain in suprapubic area in lower back Denies burning with urination, discharge, urinary frequency, vaginal bleeding. Derm: Skin is intact, is healthy with good turgor, Skin is pink, warm \T\ dry. Musculoskeletal: Circulation, motion, and sensation intact. Range of motion: intact in all extremities. 18:16 Reassessment: Patient appears in no apparent distress at this time. Patient and/or ph family updated on plan of care and expected duration. Pain level reassessed. Patient is alert, oriented x 3, equal unlabored respirations, skin warm/dry/pink. Pt d/c home w/ prescriptions Patient states feeling better. Vital Signs: 15:17 BP 108 / 67; Pulse 108; Resp 16 S; Temp 98.2(O); Pulse Ox 100% on R/A; Weight 87.54 kg ca1 (R); Height 5 ft. 2 in. (157.48 cm) (R); Pain 10/10; 16:30 BP 107 / 72; Pulse 98; Resp 18; Pulse Ox 97% on R/A; ph 17:27 BP 112 / 68; Pulse 92; Resp 18; Pulse Ox 98% on R/A; ph 15:17 Body Mass Index 35.30 (87.54 kg, 157.48 cm) ca1 Vitals: 17:43 Heart Tones 164 bpm. ph ED Course: 15:05 Patient arrived in ED. mr 15:19 Triage completed. ca1 15:20 Arm band placed on right wrist. ca1 15:23 Irvin Jang NP is PHCP. pm1 15:23 Giuseppe Almendarez MD is Attending Physician. pm1 15:34 Brigid Frausto, ALFREDO is Primary Nurse. ph 16:00 Inserted saline lock: 20 gauge in left antecubital area, using aseptic technique. Blood ph collected. 17:27 Patient has correct armband on for positive identification. Placed in gown. Bed in low ph position. Call light in reach. Side rails up X 1. Pulse ox on. NIBP on. 17:28 No provider procedures requiring assistance completed. ph 18:20 IV discontinued, intact, bleeding controlled, No redness/swelling at site. Pressure ph dressing applied. Administered Medications: 16:05 Drug: NS 0.9% 1000 ml Route: IV; Rate: 1000 ml; Site: left antecubital; ph 17:30 Follow up: Response: No adverse reaction; IV Status: Completed infusion; IV Intake: ph 1000ml 17:22 Drug: Rocephin 1 grams Route: IV; Rate: calculated rate; Site: left antecubital; ph 17:56 Follow up: Response: No adverse reaction; IV Status: Completed infusion ph 17:22 Drug: Tylenol 650 mg Route: PO; ph 17:56 Follow up: Response: No adverse reaction ph 17:22 Drug: Phenergan 12.5 mg Route: IVP; Site: left antecubital; ph 17:57 Follow up: Response: No adverse reaction; Nausea is decreased ph Intake: 17:30 IV: 1000ml; Total: 1000ml. ph Outcome: 17:44 Discharge ordered by . pm1 18:17 Discharged to home ambulatory, with significant other. ph 18:17 Condition: good 18:17 Discharge instructions given to patient, Instructed on discharge instructions, follow up and referral plans. medication usage, Demonstrated understanding of instructions, follow-up care, medications, Prescriptions given X 2. 18:20 Patient left the ED. ph Signatures: Malia Clarke Patricia, RN RN ph Irvin Jang, JESUS ARC WELDER pm1 Linda Power RN RN ca1
--- NOTE | 2019-08-06 17:47 | EDPHYS ---
Physician Documentation [facility] Name: Felicity Anaya Age: 29 yrs Sex: Female : 1990 Arrival Date: 08/06/2019 Time: 15:05 Bed 16 Private MD: ED Physician Giuseppe Almendarez HPI: 08/05 15:39 This 29 yrs old Female presents to ER via Ambulatory with complaints of 18 wks pm1 , Back Pain, Abdominal Pain. 15:39 The patient presents with abdominal pain suprapubic bilateral flank pain. Onset: The pm1 symptoms/episode began/occurred 3 day(s) ago. The symptoms do not radiate. Associated signs and symptoms: Pertinent positives: diarrhea and vomiting yesterday that has resolved. The symptoms are described as achy. Modifying factors: The symptoms are alleviated by nothing, the symptoms are aggravated by nothing. Severity of pain: in the emergency department the pain is unchanged. The patient has not experienced similar symptoms in the past. 15:39 Has care with private PCP. pm1 Historical: - Allergies: 15:20 No Known Allergies; ca1 - Home Meds: 15:20 Vitamin Oral [Active]; ca1 - PMHx: 15:20 Ovarian cyst; ca1 - PSHx: 15:20 ; ca1 - Immunization history:: Adult Immunizations up to date, Flu vaccine is up to date. - Social history:: Smoking status: Patient denies any tobacco usage or history of. ROS: 15:39 Constitutional: Negative for fever, chills, and weight loss, ENT: Negative for injury, pm1 pain, and discharge, Neck: Negative for injury, pain, and swelling, Cardiovascular: Negative for chest pain, palpitations, and edema, Respiratory: Negative for shortness of breath, cough, wheezing, and pleuritic chest pain. 15:39 Back: Negative for injury and pain, : Negative for injury, bleeding, discharge, and swelling, MS/Extremity: Negative for injury and deformity, Skin: Negative for injury, rash, and discoloration, Neuro: Negative for headache, weakness, numbness, tingling, and seizure. 15:39 Abdomen/GI: Positive for abdominal pain, of the suprapubic area, Negative for nausea, vomiting, and diarrhea, resolved yesterday. Exam: 15:39 Constitutional: This is a well developed, well nourished patient who is awake, alert, pm1 and in no acute distress. Head/Face: Normocephalic, atraumatic. Chest/axilla: Normal chest wall appearance and motion. Nontender with no deformity. No lesions are appreciated. Cardiovascular: Regular rate and rhythm with a normal S1 and S2. No gallops, murmurs, or rubs. Normal PMI, no JVD. No pulse deficits. Respiratory: Lungs have equal breath sounds bilaterally, clear to auscultation and percussion. No rales, rhonchi or wheezes noted. No increased work of breathing, no retractions or nasal flaring. Back: No spinal tenderness. No costovertebral tenderness. Full range of motion. Skin: Warm, dry with normal turgor. Normal color with no rashes, no lesions, and no evidence of cellulitis. MS/ Extremity: Pulses equal, no cyanosis. Neurovascular intact. Full, normal range of motion. 15:39 Abdomen/GI: Inspection: gravid appearance, is noted, Bowel sounds: normal, Palpation: abdomen is soft and non-tender, in all quadrants. 15:39 Neuro: Exam negative for acute changes, Orientation: is normal, Motor: is normal, moves all fours. Vital Signs: 15:17 BP 108 / 67; Pulse 108; Resp 16 S; Temp 98.2(O); Pulse Ox 100% on R/A; Weight 87.54 kg ca1 (R); Height 5 ft. 2 in. (157.48 cm) (R); Pain 10/10; 16:30 BP 107 / 72; Pulse 98; Resp 18; Pulse Ox 97% on R/A; ph 17:27 BP 112 / 68; Pulse 92; Resp 18; Pulse Ox 98% on R/A; ph 15:17 Body Mass Index 35.30 (87.54 kg, 157.48 cm) ca1 MDM: 15:24 Patient medically screened. pm1 17:17 Data reviewed: vital signs. Data interpreted: Pulse oximetry: on room air is 100 %. pm1 Interpretation: normal. 17:44 Counseling: I had a detailed discussion with the patient and/or guardian regarding: the pm1 historical points, exam findings, and any diagnostic results supporting the discharge/admit diagnosis, lab results, the need for outpatient follow up, to return to the emergency department if symptoms worsen or persist or if there are any questions or concerns that arise at home. 08/05 15:35 Order name: Urine Microscopic Only pm1 08/05 15:35 Order name: Basic Metabolic Panel; Complete Time: 16:54 pm1 08/05 15:35 Order name: CBC with Diff; Complete Time: 17:43 pm1 08/05 15:35 Order name: Hepatic Function; Complete Time: 16:54 pm1 08/05 15:35 Order name: Lipase; Complete Time: 16:54 pm1 08/05 16:09 Order name: Urine Dipstick--Ancillary (enter results) 08/05 16:09 Order name: Urine --Ancillary (enter results) 08/05 16:24 Order name: Urine Dipstick-Ancillary; Complete Time: 16:37 EDMS 08/05 16:24 Order name: Urine --Ancillary; Complete Time: 16:37 EDMS 08/05 17:33 Order name: Urine Culture [facility] 08/05 17:41 Order name: CBC Smear Scan; Complete Time: 17:43 EDID 08/05 15:35 Order name: Urine Dipstick-Ancillary (obtain specimen); Complete Time: 16:38 pm1 08/05 15:35 Order name: FHT's; Complete Time: 17:58 pm1 08/05 15:35 Order name: IV Saline Lock; Complete Time: 16:37 pm1 08/05 15:35 Order name: Labs collected and sent; Complete Time: 16:37 pm1 08/05 15:35 Order name: Urine Test (obtain specimen); Complete Time: 16:37 pm1 08/05 17:00 Order name: PO challenge; Complete Time: 17:53 pm1 Administered Medications: 16:05 Drug: NS 0.9% 1000 ml Route: IV; Rate: 1000 ml; Site: left antecubital; ph 17:30 Follow up: Response: No adverse reaction; IV Status: Completed infusion; IV Intake: ph 1000ml 17:22 Drug: Rocephin 1 grams Route: IV; Rate: calculated rate; Site: left antecubital; ph 17:56 Follow up: Response: No adverse reaction; IV Status: Completed infusion ph 17:22 Drug: Tylenol 650 mg Route: PO; ph 17:56 Follow up: Response: No adverse reaction ph 17:22 Drug: Phenergan 12.5 mg Route: IVP; Site: left antecubital; ph 17:57 Follow up: Response: No adverse reaction; Nausea is decreased ph Disposition: 18:23 Co-signature as Attending Physician, Giuseppe Almendarez MD. rn Disposition: 08/06/19 17:44 Discharged to Home. Impression: Urinary tract infection, site not specified. - Condition is Stable. - Discharge Instructions: and Urinary Tract Infection. - Prescriptions for Macrobid 100 mg Oral Capsule - take 1 capsule by ORAL route every 12 hours for 10 days; 20 capsule. promethazine 25 mg Oral Tablet - take 1 tablet by ORAL route every 6 hours As needed; 20 tablet. - Family Work Release, Medication Reconciliation Form, Thank You Letter, Antibiotic Education, Prescription Opioid Use form. - Follow up: Emergency Department; When: As needed; Reason: Worsening of condition. Follow up: Private Physician; When: 2 - 3 days; Reason: Recheck today's complaints, Continuance of care, Re-evaluation by your physician. - Problem is new. - Symptoms have improved. Signatures: Dispatcher [employer] EDMS Giuseppe Almendarez MD MD rn Hall, Patricia, RN RN ph Irvin Jang NP RESEARCH PHLEBOTOMIST pm1 Linda Power RN RN ca1 Corrections: (The following items were deleted from the chart) 18: 17:44 08/06/2019 17:44 Discharged to Home. Impression: Urinary tract infection, site ph not specified. Condition is Stable. Forms are Medication Reconciliation Form, Thank You Letter, Antibiotic Education, Prescription Opioid Use. Follow up: Emergency Department; When: As needed; Reason: Worsening of condition. Follow up: Private Physician; When: 2 - 3 days; Reason: Recheck today's complaints, Continuance of care, Re-evaluation by your physician. Problem is new. Symptoms have improved. pm1
[2019-08-06 18:49] VITALS: TEMP 100
[2019-08-06 18:50] VITALS: BP 153/98; O2SAT 95
== END 2019-08-06 18:20 | disposition home or self-care (01) ==
LOC: ER 14:59
DX: O23.42 Unspecified infection of urinary tract in pregnancy, second trimester (principal); Z3A.18 18 weeks gestation of pregnancy
CPT/HCPCS: 96365; 96361; 87088; 85025; 87086; 80048; 36415; 81025; 80076; 83690; 96375; 99284; J2550; J0696; J7030; 81003; 81015

== ENCOUNTER 2019-09-26 02:44 | Emergency (ER) | payer OTHER ==
--- OUTSIDE RECORDS SUMMARY | 2019-09-26 02:45 | XMS REPORT ---
:1990 Author Organization [facility] t Address [address] [place] [address] Care Team Providers Name Role Phone Alyse Ceja Attending Clinician Ultrasound Attending Clinician Unavailable Problems This patient has no known problems. Allergies, Adverse Reactions, Alerts This patient has no known allergies or adverse reactions. Medications This patient has no known medications. Procedures This patient has no known procedures. Encounters Start End Encounter Admission Attending Care Care Encounter Source Date/Time Date/Time Type Type Clinicians Facility Department ID 2019-09-20 2019-09-20 Routine JIN Stuart [id number] 13:08:49 13:17:04 Roshunda R BOTTLE WASHER [id number] Visit REGIONAL [id number] MATERNAL [id number] & CHILD [facility] 2019-09-12 2019-09-12 Telephone JIN Stuart [id number] 00:00:00 00:00:00 Rostreenda R BOTTLE WASHER [id number] REGIONAL [id number] MATERNAL [id number] & CHILD [facility] 2019-09-04 2019-09-04 Telephone JIN Stuart [id number] 00:00:00 00:00:00 Roshunda R BOTTLE WASHER [id number] REGIONAL [id number] MATERNAL [id number] & CHILD [facility] 2019-08-08 2019-08-08 Abstract Narciso, [facility] [id number] 00:00:00 00:00:00 Alyse Berman BOTTLE WASHER [id number] REGIONAL [id number] MATERNAL [id number] & CHILD [facility] 2019-08-07 2019-08-07 Mattress Filler Ultrasound, [facility] [id number] 10:33:10 16:33:02 Visit Elvia BOTTLE WASHER [id number] REGIONAL [id number] MATERNAL [id number] & CHILD [facility] Results This patient has no known results.
--- OUTSIDE RECORDS SUMMARY | 2019-09-26 02:46 | XMS REPORT | Summary of Care ---
:1990 Author Organization [facility] Address [address] [place] [address] Care Team Providers Name Role Phone Alyse Stuart Primary Care Provider Reason for Visit Reason Comments ULTRASOUND (Routine) Status Reason Specialty Diagnoses / Referred By Referred To Procedures Contact Contact Closed Maternal Diagnoses Supervision of high risk in first trimester Alyse Stuart Medicine Procedures CONSULT MATERNAL MEDICINE ULTRASOUND Preferred Location: [facility]AL[facility] Betancourt [address] [place] [address] Encounter Details Date Type Department Care Team Description 08/07/2019 Manager Operations And [facility] [address] [place] [address] Suspected damage to fetus from disease i n mother, antepartum condition, single or unspecified fetus; Ultrasound- Lyn Lr MD [address] [facility] [id number] [place] [address] Obesity complicating in second trimester; [place] Previous delivery, antepartum condition or complication [address] [place] [address] Allergies No Known Allergiesdocumented as of this encounter (statuses as of 08/07/2019) Medications Medication Sig Dispensed Refills Start Date End Date Status PNV 67-iron ps-folate Take 1 capsule by 30 capsule 11 0 Active no.1-dha (VITAFOL mouth daily. ULTRA) 29 mg iron- 1 mg-200 mg CapIndications: Supervision of high risk in first trimester vit Take 1 Packet by 30 Each 6 05/28/2019 Active 15-epdh-sbibq-dha mouth daily. (SELECT-OB + DHA) 29 mg iron-1 mg -250 mg combo packIndications: Supervision of high risk in first trimester documented as of this encounter (statuses as of 08/07/2019) Active Problems Problem Noted Date Urinary tract infection without hematuria, site unspec ified 08/07/2019 Abnormal glucose affecting 05/28/2019 Encounter for immunization 04/30/2019 Desires (vaginal after ) trial 04/15 History of 07/01/2018 Multiparity 05/02/2018 Supervision of high risk in second trimester 11/08/2017 Obesity in , antepartum 11/08/2017 Previous delivery affecting , antepa rtum 11/08/2017 Overview: Per EPIC notes, pt requested c/s due to painful ovarian cysts that was removed during c/s-ROR for MOTLEY requested History of intrauterine in previous pregna ncy 11/08/2017 Overview: Due to nuchal cord and umbilical knot at 37/1 (see EPIC records from 2010) History of ovarian cyst 11/08/2017 Estimated Date of Delivery Comments Yes 01/01/2020 Based on last menstr ual period of 03/27/2019 (Approximate) documented as of this encounter (statuses as of 08/07/2019) Resolved Problems Problem Noted Date Resolved Date Liveborn by vaginal delivery 07/02/201804/15 Vaginal after , delivered, current 07/02/2018 04/30/2019 hospitalization Obesity (BMI 30-39.9) 07/01/2018 04/30/2019 39 weeks gestation of 07/01/2018 04/30/20 19 GBS (group B Streptococcus carrier), +RV culture, currently 06/16/2018 04/30/2019 Needs flu shot 04/18/2018 04/30/2019 Need for Tdap vaccination 04/18/2018 04/30/2019 Acute nasopharyngitis 04/18/2018 04/30/2019 Pelvic mass 10/23/2014 11/08/2017 Ovarian mass 10/21/2014 10/23/2014 Immunizations up to date 06/28/2014 10/23/2014 History of section 06/28/2014 11/08/2017 First degree perineal laceration during delivery 03/30/2011 10/23/2014 Overview: ICD10 Diagnosis Term 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 IUFD (intrauterine ) 03/30/2011 10/24/19 15 documented as of this encounter (statuses as of 08/07/2019) Immunizations Name Administration Dates Next Due HEPATITIS A 03/17/2006 Influenza Virus Vaccine Quad .5 mL IM 6+ MO 04/30/2019, 08/2017 Influenza Virus Vaccine Quad IM 3+ YRS 10/23/2014 Meningococcal Vaccine 03/17/2006 Tdap 04/18/2018, 05/16/2012 documented as of this encounter Social History Tobacco Use Types Packs/Day Years Used Date Never Smoker Smokeless Tobacco: Never Used Alcohol Use Drinks/Week oz/Week Comments Not Currently Estimated Date of Delivery Comments Yes 01/01/2020 Based on last menstr ual period of 03/27/2019 (Approximate) Sex Assigned at Date Recorded Not on file Job Start Date Occupation Industry Not on file Not on file Not on file Travel History Travel Start Travel End No recent travel history available. documented as of this encounter Last Filed Vital Signs Not on filedocumented in this encounter Plan of Treatment Date Type Specialty Care Team Description 09/04/2019 Routine Visit OB Satellites Cullen Stuart, MEDICAID SERVICE COORDINATOR [address] [place] [address] 15 [phone] Health Maintenance Due Date Last Done Comments PAP SMEAR 11/08/2020 11/08/2017, 04/29/2011 DTaP,Tdap,and Td Vaccines (3 04/18/2028 04/18/2018, - Td) 05/16/2012 INFLUENZA VACCINE Completed 04/30/2019, 04/18/2018, 10/23/2014 PNEUMOCOCCAL 0-64 YEARS Aged Out No longe r eligible based COMBINED SERIES on patient's age to complete this to [facility] documented as of this encounter Results Not on filedocumented in this encounter Visit Diagnoses Diagnosis Suspected damage to fetus from disease i n mother, antepartum condition, single or unspecified fetus Obesity complicating in second trimester Obesity complicating , childbir th, or the puerperium, antepartum condition or complication Previous delivery, antepartum c ondition or complication documented in this encounter Insurance Payer Benefit Plan / Subscriber ID Effective Phone Address T ype Group [facility] xxxxxxxxx 2019-Prese [address] Medic aid HEALTH CHOICE [place] [id number] [facility] MEDICAID [place], [place] MEDICAID [phone] documented as of this encounter Advance Directives Name Relationship Healthcare Agent Relationship Co mmunication Tawana Apple Mother Primary healthcare agent [phone] (Home)
--- OUTSIDE RECORDS SUMMARY | 2019-09-26 02:46 | XMS REPORT | Summary of Care ---
:1990 Author Organization [facility] Address [address] [place] [address] Care Team Providers Name Role Phone Alyse Stuart Primary Care Provider Reason for Visit Reason Comments Care Encounter Details Date Type Department Care Team Description 08/07/2019 Routine [facility]- Alyse Stuart upervision of high risk in second trimester (Primary Dx); Visit ODALIS Betancourt Previous delivery affecting pre gnancy, antepartum; [address] History of ; [place], [place] Kelechi Desires (vaginal after man an) trial; [address] [place], [place] History of intrauterine feta l in previous ; [phone] Multiparity; [phone] Urinary tract infection without hematuri a, site unspecified; [phone] Obesity in preg jammie, antepartum (Fax) Allergies No Known Allergiesdocumented as of this encounter (statuses as of 08/07/2019) Medications Medication Sig Dispensed Refills Start Date End Date Status PNV 67-iron ps-folate Take 1 capsule by 30 capsule 11 0 Active no.1-dha (VITAFOL mouth daily. ULTRA) 29 mg iron- 1 mg-200 mg CapIndications: Supervision of high risk in first trimester vit Take 1 Packet by 30 Each 6 05/28/2019 Active 77-mtay-lfstj-dha mouth daily. (SELECT-OB + DHA) 29 mg [...] delivery 03/30/2011 10/23/2014 Overview: ICD10 Diagnosis Term Adoption Manager Utility IUFD (intrauterine ) 03/30/2011 06/10/20 15 documented as of this encounter (statuses [...] Sign Reading Time Taken Comments Blood Pressure 110/66 08/07/2019 8:34 AM CDT Pulse 96 08/07/2019 8:34 AM CDT Temperature 36.3 C (97.4 F) 08/07/2019 8:34 AM CDT Respiratory Rate 16 08/07/2019 8:34 AM CDT Oxygen Saturation - - Inhaled Oxygen Concentration - - Weight 88.5 kg (195 lb) 08/07/2019 8:34 AM CDT Height 157.5 cm (5' 2") 08/07/2019 8:34 AM CDT Body Mass Index 35.67 08/07/2019 8:34 AM CDT documented in this encounter Progress Notes Alyse Stuart R, CONSUMER INSIGHTS SPECIALIST - 08/07/2019 8:15 AM CDT Chief complaint: Chief Complaint Patient presents with Care HPI CC: Follow Up Visit Felicity Anaya is a 29 year old, , /White female. Patient's last menstrual period was 03/27/2019 (approximate). She is 19w0d with an intrauterine . Her estimated date of delivery is 01/01/2020, by Last Menstrual Period. She has no complaints today. She reports +FM and denies contractions, LOF and bleeding today. Patient denies [...] N/A 10/21/2014 Surgeon: Salty Renae MD; Location: [facility] MASS EXCISION 10/21/2014 & 10/2015 Social [...] file Gets together: Not on file Attends advent service: Not on file Active member of [...] History Narrative Denies physical and sexual abuse. Mormon preference none. Patient lives with mother and children. Social History Substance and Sexual Activity Sexual Activity Yes Partners: Male control/protection: None Comment: last intercourse 04/08/2019 Labs Labs are pending. Radiology Radiology pending. Allergies Felicity has No Known Allergies. Medications Felicity has a current medication list which includes the following prescription(s): vit 89-utza-kxlbd-dha and pnv 67-iron ps-folate no.1-dha. Review of Systems Eyes: Negative for visual disturbance. Cardiovascular: Negative for leg swelling. Gastrointestinal: Negative for abdominal pain, nausea and vomiting. Genitourinary: Negative for vaginal bleeding, vaginal discharge and pelvic pain. Neurological: Negative for headaches. BP 110/66 (BP Location: Right arm, Patient Position: Sitting, BP CUFF SIZE: Adult Medium) | Pulse 96 | Temp 36.3 C (97.4 F) (Oral) | Resp 16 | Ht 5' 2" (1.575 m) | Wt 195 lb (88.5 kg) | LMP 03/27/2019 (Approximate) | BMI 35.67 kg/m Pregravid BMI: 32.2 Physical Exam PHYSICAL: General Exam: Neurological: Normal Abdomen: Normal Extremities: Normal Pelvic Exam: Uterus: 20cm Weeks Assessment/Plan Supervision of high risk in second trimester (primary encounter diagnosis) Previous delivery affecting , antepartum History of Desires (vaginal after ) trial History of intrauterine in previous Multiparity Comment: Routine Visit Plan: POCT URINALYSIS W SPECIFIC GRAVITY, POCT URINALYSIS W SPECIFIC GRAVITY, QUAD SCRN Denies zika virus risk, signs and symptoms such as fever,rash,joint pain, conjunctivitis (red eyes), muscle pain, headaches; outside [place] travel to areas affected by zika, and FOB exposure to zika.Educated on use of mosquito repellent. Urinary tract infection without hematuria, site unspecified Comment: patient went to ER on 07/08/2019, medication was given for UTI Plan: GO at [place] inperson appointment Obesity in , antepartum Comment: BMI: 35.67 Plan: Patient encouraged to limit weight gain and advised to eat healthy diet, fruits, vegetables, increased fiber and water intake and protein low in fat. Encouraged exercise for 30 min everyday; begin regimen with caution to prevent injury. Encouraged to decrease BMI to <25. Return to clinic in 2 weeks via Tele Health. Discussed treatment options. Medications as ordered. Reviewed patient instructions and provided printed copy. This visit did not involve counseling and coordination that comprised more than 50% of the visit time. ODALIS Soliman 08/07/2019 9:34 AM documented in this encounter Plan of Treatment Date Type Specialty Care Team Description 08/07/2019 Truck Trailer Final Inspector Visit Maternal Alyse Stuart, [facility] [address] [place], [place] [address] 09/04/2019 Routine Visit OB Satellites Alyse Stuart CONSUMER INSIGHTS SPECIALIST [address] [place], [place] [address] Name Type Priority Associated Diagnoses Date/Ti me QUAD SCRN LAB Routine Supervision of high risk pre gnancy in 08/07/2019 8:45 AM CDT second trimester Name Type Priority Associated Diagnoses Order S chedule POCT URINALYSIS W LAB Routine Supervision of high ris k 20 Occurrences starting SPECIFIC GRAVITY in second 07/15 until trimester 06/02/2020, 1 c ompleted Health Maintenance Due Date Last Done Comments PAP SMEAR 11/08/2020 11/08/2017, 04/29/2011 DTaP,Tdap,and Td Vaccines (3 04/18/2028 04/18/2018, - Td) 05/16/2012 INFLUENZA VACCINE Completed 04/30/2019, 04/18/2018, 10/23/2014 PNEUMOCOCCAL 0-64 YEARS Aged Out No longe r eligible based COMBINED SERIES on patient's age to complete this to [facility] documented as of this encounter Procedures Procedure Name Priority Date/Time Associated Diagnosis Comme nts POCT URINALYSIS Routine 08/07/2019 8:41 AM Supervision of hig h Results for this CDT risk in procedure are in second trimester the results section. documented in this encounter Results POCT URINALYSIS W SPECIFIC GRAVITY (08/07/2019 8:41 AM CDT) Pathologist Sig nature POCT U SP GRAV . 1.005 - 1.025 mg/dl POCT PH U 6 5 - 8 mg/dl POCT U LEUK EST 2+ Negative - Negative POCT U NIT negative Negative - Negative POCT U PROT 1+ Negative - Negative POCT U GLU negative Negative - Negative POCT U KETONE negative Negative - Negative POCT U UROBILI . 0.2 - 1 mg/dl POCT U BILI . Negative - Negative POCT U BLD negative Negative - Negative POCT U COLOR POCT U APPEAR Specimen Urine - URINE, CLEAN CATCH documented in this encounter Visit Diagnoses Diagnosis Supervision of high risk in se cond trimester - Primary Unspecified high-risk Previous delivery affecting pre gnancy, antepartum Previous delivery, antepartum c ondition or complication History of Previous delivery, delivered, w ith or without mention of antepartum condition Desires (vaginal after man an) trial Previous delivery, unspecified as to episode of care or not applicable History of intrauterine in p revious Multiparity Urinary tract infection without hematuri a, site unspecified Obesity in , antepartum Obesity complicating , childbir th, or the puerperium, antepartum condition or complication documented in this encounter Insurance Payer Benefit Plan / Subscriber ID Effective Phone Address [facility] xxxxxxxxx 2019-Prese [address] Medic aid HEALTH CHOICE - HEALTH CHO[place] nt [id number] 1 MANAGED MEDICAID [place], [place]ID [phone] documented as of this encounter Advance Directives Name Relationship Healthcare Agent Relationship Co mmunication Tawana Apple Mother Primary healthcare agent (Mobile)[phone] (Home)
--- OUTSIDE RECORDS SUMMARY | 2019-09-26 02:47 | XMS REPORT | Summary of Care ---
:1990 Author Organization [facility] Address [address] [place] [address] Care Team Providers Name Role Phone Alyse Stuart Primary Care Provider Reason for Visit Reason Comments ROUTINE VISIT Tele Health Visit Encounter Details Date Type Department Care Team Description 09/20/2019 Routine [facility]- Alyse Stuart upervision of high risk in second trimester (Primary Dx); Visit ODALIS Betancourt Previous delivery affecting pre gnancy, antepartum; [address] History of ; [place], [place] Kelechi Desires (vaginal after man an) trial; [address] [place], [place] History of intrauterine feta l in previous ; [phone] Multiparity; [phone] Obesity in , antepartum Allergies No Known Allergiesdocumented as of this encounter (statuses as of 09/20/2019) Medications Medication Sig Dispensed Refills Start Date End Date Status PNV 67-iron ps-folate Take 1 capsule by 30 capsule 11 0 Active no.1-dha (VITAFOL mouth daily. ULTRA) 29 mg iron- 1 mg-200 mg CapIndications: Supervision of high risk in first trimester vit Take 1 Packet by 30 Each 6 05/28/2019 Active 57-bkyf-fcvzi-dha mouth daily. (SELECT-OB + DHA) 29 mg iron-1 mg -250 mg combo packIndications: Supervision of high risk in first trimester documented as of this encounter (statuses as of 09/20/2019) Active Problems Problem Noted Date Urinary tract [...] as of this encounter (statuses as of 09/20/2019) Resolved Problems Problem Noted Date Resolved Date Liveborn infant by vaginal delivery 07/02/201804/15 Vaginal after , [...] delivery 03/30/2011 10/23/2014 Overview: ICD10 Diagnosis Term Car Framer Utility IUFD (intrauterine ) 03/30/2011 10/24/19 15 documented as of this encounter (statuses as of 09/20/2019) Immunizations Name Administration Dates Next Due HEPATITIS [...] Signs Not on filedocumented in this encounter Progress Notes Alyse Stuart FNP - 09/20/2019 1:00 PM CDT Chief complaint: Chief Complaint Patient presents with ROUTINE VISIT Tele Health Visit TELEHEALTH NOTE Verbal consent obtained from Patient: Felicity Anaya and Care Provider: ODALIS Soliman due to the COVID-19 pandemic for telehealth services provided below. Communication with patient was conducted via Telephone due to patient unable to obtain video call option. Location of Patient: Home Location of Provider: Clinic Date of Service: 09/20/2019 Chief Complaint: Routine Parental Visit via Tele Health HPI: Felicity Anaya is a 29 year old female with Past Medical History: Diagnosis Date STD (sexually transmitted disease) 2010 chlamydia, treated ROS See Tele Health TELEHEALTH EXAM Constitutional: Alert and no distress Respiratory: Breathing comfortably Neurology: Answers questions appropriately Psychological: Affect Normal ASSESSMENT/ PLAN After visit summary (AVS ) documentation will be available through [facility] for this encounter. A total of 15 minutes was spent on the Telephone due to patient unable to obtain video call option. ODALIS Soliman HPI CC: Follow Up Visit Felicity Anaya is a 29 year old, , /White female. Patient's last menstrual period was 03/27/2019 (approximate). She is 25w2d with an intrauterine . Her estimated date [...] Past Surgical History: Procedure Laterality Date SECTION 2013 EXPLORATORY LAPAROTOMY N/A 10/21/2014 Surgeon: Salty Renae MD; Location: [facility] MASS EXCISION 10/21/2014 & 10/2015 Social History [...] file Gets together: Not on file Attends alevism service: Not on file Active member of [...] History Narrative Denies physical and sexual abuse. Mu-Ism preference none. Patient lives with mother and children. Social History Substance and Sexual Activity Sexual Activity Yes Partners: Male control/protection: None Comment: last intercourse 04/08/2019 Labs No new labs Radiology No new radiology. Allergies Felicity has No Known Allergies. Medications Felicity has a current medication list which includes the following prescription(s): vit 30-xxbz-jfxym-dha and pnv 67-iron ps-folate no.1-dha. Review of Systems Eyes: Negative for visual disturbance. Cardiovascular: Negative for leg swelling. Gastrointestinal: Negative for abdominal pain, nausea and vomiting. Genitourinary: Negative for vaginal bleeding, vaginal discharge and pelvic pain. Neurological: Negative for headaches. LMP 03/27/2019 (Approximate) Pregravid BMI: 32.2 Physical Exam See [facility] PHYSICAL: General Exam: Neurological: Normal Assessment/Plan Supervision of high risk in second trimester (primary encounter diagnosis) Previous delivery affecting , antepartum History of Desires (vaginal after ) trial History of intrauterine in previous Multiparity Comment: Routine Visit Plan: CBC with Differential, Glucose 1 Hour Post Prandial Denies zika virus risk, signs and symptoms [...] <25. Return to clinic in 2 weeks in person with labs. Discussed treatment options. Medications as ordered. Reviewed patient instructions and provided printed copy. This visit did not involve counseling and coordination that comprised more than 50% of the visit time. ODALIS Soliman 09/20/2019 1:19 PM documented in this encounter Plan of Treatment Date Type Specialty Care Team Description 10/01/2019 Routine Visit OB Satellites Alyse Stuart FNP [address] [place], [place] [address] [phone] 10/09/2019 Web Development Consultant Visit Maternal Medicine 11/06/2019 Web Development Consultant Visit Maternal Medicine 12/04/2019 Web Development Consultant Visit Maternal Medicine 01/01/2020 Web Development Consultant Visit Maternal Medicine Name Type Priority Associated Diagnoses Order S chedule CBC with Differential LAB Routine Supervision of high risk Expected: 09/20/2019, in second Expires: 09/19/2020 trimester Glucose 1 Hour Post LAB Routine Supervision of high r isk Expected: 09/20/2019, Prandial in second Expires: 09/19/2020 trimester Health Maintenance Due Date Last Done Comments PAP SMEAR 11/08/2020 11/08/2017, 04/29/2011 DTaP,Tdap,and Td Vaccines (3 04/18/2028 04/18/2018, - Td) 05/16/2012 INFLUENZA VACCINE Completed 04/30/2019, 04/18/2018, 10/23/2014 PNEUMOCOCCAL 0-64 YEARS Aged Out No longe r eligible based COMBINED SERIES on patient's age to complete this to [facility] documented as of this encounter Results Not on filedocumented in this encounter Visit Diagnoses Diagnosis Supervision [...] History of intrauterine in p revious Multiparity Obesity in , antepartum Obesity complicating , childbir th, or the puerperium, antepartum condition or complication documented in this encounter Insurance Payer Benefit Plan / Subscriber ID Effective Phone Address T ype [facility] xxxxxxxxx 2019-[place] [address] Medic aid HEALTH CHOICE - HEALTH CHOICE nt [id number] 1 MANAGED MEDICAID [place], [place]ICAID [phone] documented as of this encounter Advance Directives Name Relationship Healthcare Agent Relationship Co mmunication Tawana Apple Mother Primary healthcare agent [phone] (Home)
--- OUTSIDE RECORDS SUMMARY | 2019-09-26 02:47 | XMS REPORT | Summary of Care ---
:1990 Author Organization [facility] Address [address] [place] [address] Care Team Providers Name Role Phone Alyse Stuart Primary Care Provider Reason for Visit Reason Comments ULTRASOUND (Routine) Status Reason Specialty Diagnoses / Referred By Referred To Procedures Contact Contact Closed Maternal Diagnoses Supervision of high risk in first trimester Alyse Stuart Medicine Procedures CONSULT MATERNAL MEDICINE ULTRASOUND Preferred Location: ODALIS Betancourt [address] [place] [address] Encounter Details Date Type Department Care Team Description 08/07/2019 [facility] [address] [place], [place] [id number] Suspected damage to fetus from disease i n mother, antepartum condition, single or unspecified fetus; Ultrasound- Lyn Lr MD [address] [facility] [id number] [place], [place] [id number] Obesity complicating in second trimester; [place] Previous delivery, antepartum condition or complication; [address] [facility] Hx of intrauterine logan th, currently , third [place] [phone] Allergies No Known Allergiesdocumented as of this encounter (statuses as of 08/07/2019) Medications Medication Sig Dispensed Refills Start Date End Date Status PNV 67-iron ps-folate Take 1 capsule by 30 capsule 11 0 Active no.1-dha (VITAFOL mouth daily. ULTRA) 29 mg iron- 1 mg-200 mg CapIndications: Supervision of high risk in first trimester vit Take 1 Packet by 30 Each 6 05/28/2019 Active 64-bskh-gtttq-dha mouth daily. (SELECT-OB + DHA) 29 mg [...] delivery 03/30/2011 10/23/2014 Overview: ICD10 Diagnosis Term Business Development Assistant Utility IUFD (intrauterine ) 03/30/2011 10/24/19 15 [...] Description 09/04/2019 Routine Visit OB Satellites Cullen Stuart R, LINE DECORATOR [address] [place] [address] [phone] Health Maintenance Due Date Last Done Comments PAP SMEAR 11/08/2020 11/08/2017, 04/29/2011 DTaP,Tdap,and Td Vaccines (3 04/18/2028 04/18/2018, - Td) 05/16/2012 INFLUENZA VACCINE Completed 04/30/2019, 04/18/2018, 10/23/2014 PNEUMOCOCCAL 0-64 YEARS Aged Out No longe r eligible based COMBINED SERIES on patient's age to complete this to [facility] documented as of this encounter Results Not on filedocumented in this encounter Visit Diagnoses Diagnosis Suspected damage to fetus from disease i n mother, antepartum condition, single or unspecified fetus Obesity complicating in second trimester Obesity complicating , childbir th, or the puerperium, antepartum condition or complication Previous delivery, antepartum c ondition or complication Hx of intrauterine , currentl y , third trimester documented in this encounter Insurance Payer Benefit Plan / Subscriber ID Effective Phone Address T ype [facility] xxxxxxxxx 2019-Prese P[address]O. BOX Medic aid HEALTH CHOICE - [place] nt [phone] 1 MANAGED MEDICAID [place], [place] [phone] documented as of this encounter Advance Directives Name Relationship Healthcare Agent Relationship Co mmunication Tawana Apple Mother Primary healthcare agent [phone] (Home)
--- OUTSIDE RECORDS SUMMARY | 2019-09-26 02:47 | XMS REPORT | Summary of Care ---
:1990 Author Organization [facility] Address [address] [place] [address] Care Team Providers Name Role Phone Alyse Stuart Primary Care Provider Encounter Details Date Type Department Care Team Description 08/08/2019 Abstract [facility] RMCHP- [place] Alyse Stuart, STORAGE SOLUTIONS ARCHITECT [address] [facility] [address] [place] [address] [place] [address] [phone] Allergies No Known Allergiesdocumented as of this encounter (statuses as of 08/08/2019) Medications Medication Sig Dispensed Refills Start Date End Date Status PNV 67-iron ps-folate Take 1 capsule by 30 capsule 11 0 Active no.1-dha (VITAFOL mouth daily. ULTRA) 29 mg iron- 1 mg-200 mg CapIndications: Supervision of high risk in first trimester vit Take 1 Packet by 30 Each 6 05/28/2019 Active 75-llfy-nqite-dha mouth daily. (SELECT-OB + DHA) 29 mg iron-1 mg -250 mg combo packIndications: Supervision of high risk in first trimester documented as of this encounter (statuses as of 08/08/2019) Active Problems Problem Noted Date Urinary tract [...] as of this encounter (statuses as of 08/08/2019) Resolved Problems Problem Noted Date Resolved Date [...] delivery 03/30/2011 10/23/2014 Overview: ICD10 Diagnosis Term Post Form Remover Utility IUFD (intrauterine ) 03/30/2011 10/24/19 15 documented as of this encounter (statuses as of 08/08/2019) Immunizations Name Administration Dates Next Due HEPATITIS A 03/17/2006 Influenza Virus Vaccine Quad .5 mL IM 6+ MO 04/30/2019, 1208/2017 Influenza Virus Vaccine Quad IM 3+ YRS [...] Routine Visit OB Satellites Cullen Stuart R, STORAGE SOLUTIONS ARCHITECT [address] [place] [address] [phone] Health Maintenance Due Date Last Done Comments PAP SMEAR 11/08/2020 11/08/2017, 04/29/2011 DTaP,Tdap,and Td Vaccines (3 04/18/2028 04/18/2018, - Td) 05/16/2012 INFLUENZA VACCINE Completed 04/30/2019, 04/18/2018, 10/23/2014 PNEUMOCOCCAL 0-64 YEARS Aged Out No longe r eligible based COMBINED SERIES on patient's age to complete this to pic documented as of this encounter Results Not on filedocumented in this encounter Insurance Payer Benefit Plan / Subscriber ID Effective Phone Address [facility] xxxxxxxxx 2019-Prese [address]O. BOX Medic aid HEALTH CHOICE - HEALTH CHOICE nt [id number] 1 MANAGED MEDICAID [place] [phone] documented as of this encounter Advance Directives Name Relationship Healthcare Agent Relationship Co mmunication Tawana Apple Mother Primary healthcare agent [phone] (Home)
--- OUTSIDE RECORDS SUMMARY | 2019-09-26 02:47 | XMS REPORT | Summary of Care ---
:1990 Author Organization [facility] Address [address] [place] [address] Care Team Providers Name Role Phone Alyse Stuart [facility] Primary Care Provider Reason for Visit Reason Comments Appointment Tele Health Appt Encounter Details Date Type Department Care Team Description 09/04/2019 Telephone [facility]- Alyse Stuart, Cristian pointment ([facility] Health Appt) [address] [facility] [address] [place], [place] [phone] Allergies No Known Allergiesdocumented as of this encounter (statuses as of 09/04/2019) Medications Medication Sig Dispensed Refills Start Date End Date Status PNV 67-iron ps-folate Take 1 capsule by 30 capsule 11 0 Active no.1-dha (VITAFOL mouth daily. ULTRA) 29 mg iron- 1 mg-200 mg CapIndications: Supervision of high risk in first trimester vit Take 1 Packet by 30 Each 6 05/28/2019 Active 83-tnwg-swfim-dha mouth daily. (SELECT-OB + DHA) 29 mg iron-1 mg -250 mg combo packIndications: Supervision of high risk in first trimester documented as of this encounter (statuses as of 09/04/2019) Active Problems Problem Noted Date Urinary tract infection without hematuria, site unspec ified 08/07/2019 Abnormal glucose affecting 05/28/2019 Encounter for immunization 04/30/2019 Desires (vaginal after ) trial 12/1 10/2018 History of 07/01/2018 Multiparity 05/02/2018 Supervision of [...] as of this encounter (statuses as of 09/04/2019) Resolved Problems Problem Noted Date Resolved Date [...] delivery 03/30/2011 10/23/2014 Overview: ICD10 Diagnosis Term Internal Wholesaler Utility IUFD (intrauterine ) 03/30/2011 10/24/19 15 documented as of this encounter (statuses as of 09/04/2019) Immunizations Name Administration Dates Next Due HEPATITIS [...] Treatment Date Type Specialty Care Team Description 10/09/2019 Box Machine Operator Visit Maternal Medicine 11/06/2019 Box Machine Operator Visit Maternal Medicine 12/04/2019 Box Machine Operator Visit Maternal Medicine 01/01/2020 Box Machine Operator Visit Maternal Medicine Health Maintenance Due Date [...] / Subscriber ID Effective Phone Address [facility] xxxxxxxxx 2019-Prese [address] BOX Medic aid HEALTH CHOICE - HEALTH CHOICE nt [phone] 1 MANAGED MEDICAID [place] [phone] documented as of this encounter Advance Directives Name Relationship Healthcare Agent Relationship Co mmunication Tawana Apple Mother Primary healthcare agent [phone] (Home)
--- OUTSIDE RECORDS SUMMARY | 2019-09-26 02:48 | XMS REPORT | Summary of Care ---
:1990 Author Organization [facility] Address [address] [place] [address] Care Team Providers Name Role Phone Alyse Stuart DIRECTOR OF APPLICATION DEVELOPMENT Primary Care Provider Reason for Visit Reason Comments Appointment telehealth Encounter Details Date Type Department Care Team Description [facility]12[facility], [facility] DIRECTOR OF APPLICATION DEVELOPMENT (telehealth ) [address] [facility] [address] [place], [place] [phone] Allergies No Known Allergiesdocumented as of this encounter (statuses as of 09/20/2019) Medications Medication Sig Dispensed Refills Start Date End Date Status PNV 67-iron ps-folate Take 1 capsule by 30 capsule 11 0 Active no.1-dha (VITAFOL mouth daily. ULTRA) 29 mg iron- 1 mg-200 mg CapIndications: Supervision of high risk in first trimester vit Take 1 Packet by 30 Each 6 05/28/2019 Active 37-zjkm-jbllq-dha mouth daily. 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 Medic aid HEALTH CHOICE - HEALTH CHOICE nt [id number] 1 MANAGED MEDICAID [place], [place] [id number] documented as of this encounter Advance Directives Name Relationship Healthcare Agent Relationship Co mmunication Tawana Apple Mother Primary healthcare agent [phone] (Home)
--- NOTE | 2019-09-26 03:20 | ER ---
Nurse's Notes [facility] Name: Felicity Anaya Age: 29 yrs Sex: Female : 1990 Arrival Date: 09/26/2019 Time: 02:47 Bed 7 Private MD: Diagnosis: Urinary tract infection, site not specified Presentation: 09/25 02:57 Chief complaint: Patient states: "I am feeling like I am having contractions or jd3 something. around my back around both sides and too my front area has been cramping off and on now since yesterday, 09/25/2019, evening. I also have been having that feeling to pee without urinating a lot and it has been burning when I do.". Coronavirus screen: Proceed with normal triage. Ebola Screen: Patient negative for fever greater than or equal to 101.5 degrees Fahrenheit, and additional compatible Ebola Virus Disease symptoms. Initial Sepsis Screen: Does the patient meet any 2 criteria? No. Patient's initial sepsis screen is negative. Does the patient have a suspected source of infection? No. Patient's initial sepsis screen is negative. Risk Assessment: Do you want to hurt yourself or someone else? Patient reports no desire to harm self or others. Onset of symptoms was September 25, 2019. 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 - Social history:: Smoking status: Patient denies any tobacco usage or history of. - Family history:: not pertinent. - Hospitalizations: : No recent hospitalization is reported. Screenin:04 Abuse screen: Denies threats or abuse. Nutritional screening: No deficits noted. jd3 Tuberculosis screening: No symptoms or risk factors identified. Fall Risk Ambulatory Aid- None/Bed Rest/Nurse Assist (0 pts). Gait- Normal/Bed Rest/Wheelchair (0 pts) Mental Status- Oriented to own ability (0 pts). Total Drew Fall Scale indicates No Risk (0-24 pts). Assessment: 03:03 General: Appears in no apparent distress. uncomfortable, Behavior is calm, cooperative, jd3 appropriate for age. Pain: Complains of pain in suprapubic area Pain radiates to low back area Quality of pain is described as crampy, sharp. Neuro: Level of Consciousness is awake, alert, obeys commands, Oriented to person, place, time, situation. Cardiovascular: Denies chest pain, Capillary refill < 3 seconds Patient's skin is warm and dry. Respiratory: Airway is patent Respiratory effort is even, unlabored, Respiratory pattern is regular, symmetrical, Denies cough, shortness of breath. GI: Abdomen is round non-distended, Patient currently denies constipation, diarrhea, nausea, vomiting. : Reports burning with urination, urinary frequency. EENT: No signs and/or symptoms were reported regarding the EENT system. Derm: Skin is intact, Skin is dry, Skin is normal, Skin temperature is warm. Musculoskeletal: Circulation, motion, and sensation intact. Range of motion: intact in all extremities. Vital Signs: 02:53 Temp 98.2; jd3 03:01 BP 126 / 54; Pulse 109; Resp 17 S; Pulse Ox 98% on R/A; Weight 88.9 kg (R); Height 5 jd3 ft. 2 in. (157.48 cm) (R); Pain 8/10; 03:01 Body Mass Index 35.85 (88.90 kg, 157.48 cm) jd3 ED Course: 02:47 Patient arrived in ED. ag3 02:49 Nabil Diez is Primary Nurse. wh 02:55 Giuseppe Almendarez MD is Attending Physician. rn 03:01 Triage completed. jd3 03:02 Arm band placed on. jd3 03:05 Patient has correct armband on for positive identification. Bed in low position. Call jd3 light in reach. Side rails up X 1. Adult w/ patient. Pulse ox on. NIBP on. 04:20 No provider procedures requiring assistance completed. Patient did not have IV access sg during this emergency room visit. Administered Medications: 04:20 Drug: Macrobid 100 mg Route: PO; sg 04:23 Follow up: Response: No adverse reaction; Medication administered at discharge. sg 04:20 Drug: Tylenol 650 mg Route: PO; sg 04:23 Follow up: Response: No adverse reaction; Medication administered at discharge. sg Outcome: 03:19 Discharge ordered by . rn 04:20 Discharged to home ambulatory, with family. sg 04:20 Condition: good 04:20 Discharge instructions given to patient, Instructed on discharge instructions, follow up and referral plans. no drinking with medication, medication usage, Demonstrated understanding of instructions, follow-up care, medications, Prescriptions given X 1. 04:21 Patient left the ED. sg Signatures: Akshat Nicholson RN RN sg Nieto, Roman, MD MD rn Habalo, Winsy wh Davies, Jonathon, RN RN jBonnie Sánchez
--- NOTE | 2019-09-26 03:20 | EDPHYS ---
Physician Documentation [facility] Name: Felicity Anaya Age: 29 yrs Sex: Female : 1990 Arrival Date: 09/26/2019 Time: 02:47 Bed 7 Private MD: ED Physician Giuseppe Almendarez HPI: 09/25 03:00 This 29 yrs old Female presents to ER via Unassigned with complaints of Pain rn With Urination. 03:00 The patient presents with urinary symptoms, dysuria, frequency, urgency. Onset: The rn symptoms/episode began/occurred 2 day(s) ago. Modifying factors: The symptoms are alleviated by nothing, the symptoms are aggravated by urinating. Severity of symptoms: At their worst the symptoms were mild, in the emergency department the symptoms are unchanged. The patient has not experienced similar symptoms in the past. The patient has not recently seen a physician. Reports approx 24 weeks , this is 4th , no pre-term labor, came in for dysuria and increased frequency, assoc with intermittent lower back pain. No vaginal bleeding or leakage of fluid. No trauma. Both sides of back hurt, intermittent, and worse with movement. . 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 - Social history:: Smoking status: Patient denies any tobacco usage or history of. - Family history:: not pertinent. - Hospitalizations: : No recent hospitalization is reported. ROS: 03:00 Positive for urinary symptoms, Negative for bladder incontinence, vaginal bleeding, rn vaginal discharge. 03:00 Constitutional: Negative for fever, chills, and weight loss, Eyes: Negative for injury, pain, redness, and discharge, Cardiovascular: Negative for chest pain, palpitations, and edema, Respiratory: Negative for shortness of breath, cough, wheezing, and pleuritic chest pain, Abdomen/GI: Negative for abdominal pain, diarrhea, and constipation, Back: + low back pain : + dysuria and increased frequency MS/Extremity: Negative for injury and deformity, Neuro: Negative for headache, weakness, numbness, tingling, and seizure. Exam: 03:00 Constitutional: This is a well developed, well nourished patient who is awake, alert, rn and in no acute distress. Ambulatory to room without difficulty or assistance. Head/Face: Normocephalic, atraumatic. Cardiovascular: Tachycardic, regular. No pulse deficits. Respiratory: Speaking full sentences, unlabored breathing Abdomen/GI: soft, non-tender, no rebound Back: No spinal tenderness. No costovertebral tenderness. Skin: Warm, dry Neuro: Awake and alert, GCS 15, Motor strength 5/5 in all extremities. Sensory grossly intact. Normal gait. Vital Signs: 02:53 Temp 98.2; jd3 03:01 BP 126 / 54; Pulse 109; Resp 17 S; Pulse Ox 98% on R/A; Weight 88.9 kg (R); Height 5 jd3 ft. 2 in. (157.48 cm) (R); Pain 8/10; 03:01 Body Mass Index 35.85 (88.90 kg, 157.48 cm) jd3 Procedures: 03:14 Ultrasound: Type: OB, performed by the emergency department physician, Bedside OB u/s rn performed by Dr. Almendarez, FHTs 158, good movement, horizontal lie, good fluid, showed images to mother. . MDM: 02:55 Patient medically screened. rn 03:17 Differential diagnosis: urinary tract infection, related pain/cramps. Data rn reviewed: vital signs, nurses notes, lab test result(s), and as a result, I will discharge patient. Counseling: I had a detailed discussion with the patient and/or guardian regarding: the historical points, exam findings, and any diagnostic results supporting the discharge/admit diagnosis, lab results, the need for outpatient follow up, to return to the emergency department if symptoms worsen or persist or if there are any questions or concerns that arise at home. Special discussion: I discussed with the patient/guardian in detail that at this point there is no indication for admission to the hospital. It is understood, however, that if the symptoms persist or worsen the patient needs to return immediately for re-evaluation. Based on the history and exam findings, there is no indication for further emergent testing or inpatient evaluation. I discussed with the patient/guardian the need to see the OB Gyne specialist for further evaluation of the symptoms. 03:18 ED course: + nitrite and 2+ leukocytes in UA, will dc home with abx, urged to f/u with rn her OB and return precautions given. . 09/25 03:00 Order name: Urine Microscopic Only; Complete Time: 04:21 rn 09/25 03:13 Order name: Urine Dipstick--Ancillary (enter results); Complete Time: 04:21 mt 09/25 03:00 Order name: Urine Dipstick-Ancillary (obtain specimen); Complete Time: 04:21 rn 09/25 04:13 Order name: Urine Culture EDMS Administered Medications: 04:20 Drug: Macrobid 100 mg Route: PO; sg 04:23 Follow up: Response: No adverse reaction; Medication administered at discharge. sg 04:20 Drug: Tylenol 650 mg Route: PO; sg 04:23 Follow up: Response: No adverse reaction; Medication administered at discharge. sg Disposition: 09/26/19 03:19 Discharged to Home. Impression: Urinary tract infection, site not specified. - Condition is Stable. - Discharge Instructions: Urinary Tract Infection, Adult, and Urinary Tract Infection. - Prescriptions for Macrobid 100 mg Oral Capsule - take 1 capsule by ORAL route every 12 hours for 10 days; 20 capsule. - Medication Reconciliation Form, Thank You Letter, Antibiotic Education, Prescription Opioid Use form. - Family Work Release (09/26/19 04:37). mt - Follow up: Private Physician; When: As needed; Reason: Recheck today's complaints, Re-evaluation by your physician. - Problem is new. - Symptoms have improved. Signatures: Dispatcher [employer] EDMS Akshat Nicholson RN RN sg Giuseppe Almendarez MD MD rn Davies, Jonathon, RN RN jd3 Thompson, Moriah nc Corrections: (The following items were deleted from the chart) 03:14 03:00 FHT's ordered. rn rn 03:15 03:00 Reports approx 24 weeks , this is 4th , no pre-term labor, came rn in for dysuria and increased frequency, assoc with intermittent lower back pain. No vaginal bleeding or leakage of fluid. No trauma. . rn 04:21 03:19 09/26/2019 03:19 Discharged to Home. Impression: Urinary tract infection, site sg not specified. Condition is Stable. Forms are Medication Reconciliation Form, Thank You Letter, Antibiotic Education, Prescription Opioid Use. Follow up: Private Physician; When: As needed; Reason: Recheck today's complaints, Re-evaluation by your physician. Problem is new. Symptoms have improved. rn
[2019-09-26 04:11] LABS: Urine Bacteria >50 /HPF (<20); Urine Culture Reflex Order REFLEXED
[2019-09-26 04:12] LABS: Urine Blood 2+ (NEG); Urine Glucose NEGATIVE (NEG); Urine Protein 3+ (NEG); Urine Specific Gravity >1.030 (1.005-1.030)
[2019-09-26] MEDS ORDERED: ACETAMINOPHEN 325 MG TABLET ONE (04:24)
[2019-09-26] MEDS ORDERED: NITROFURAN MACRO 100 MG CAP PO ONE (04:24)
[2019-09-26 04:26] VITALS: TEMP 98.2
[2019-09-26 04:28] VITALS: BP 126/54; O2SAT 98
== END 2019-09-26 04:21 | disposition home or self-care (01) ==
LOC: ER 02:44
DX: O23.40 Unspecified infection of urinary tract in pregnancy, unspecified trimester (principal); Z3A.00 Weeks of gestation of pregnancy not specified
CPT/HCPCS: 81003; 81015; 87077; 87086; 87088; 87186; 99283

== ENCOUNTER 2020-09-09 01:58 | Emergency (ER) | payer OTHER ==
[2020-09-09 02:54] LABS: Absolute Lymphocytes (CBC) 1.2 K/uL (0.7-4.9)
[2020-09-09 03:09] LABS: ALT/SGPT 16 U/L (12-78); AST/SGOT 14 U/L (15-37); Albumin 3.8 g/dL (3.4-5.0); Alkaline Phosphatase 103 U/L (45-117); BUN Blood Urea Nitrogen 17 mg/dL (7-18); Bicarbonate 24 mmol/L (21-32); Bilirubin Direct < 0.1 mg/dL (0-0.2); Bilirubin Total 0.3 mg/dL (0.2-1.0); Glucose Level 101 mg/dL (74-106); Lipase 91 U/L (73-393); Potassium 3.7 mmol/L (3.5-5.1); Protein, Total 8.2 g/dL (6.4-8.2); Sodium Level 141 mmol/L (136-145)
[2020-09-09 03:10] LABS: Basophils % 0.2 % (0-1.3); Hematocrit 39.9 % (36.0-45.0); Lymphocytes % 10.7 % (15.3-44.8); MPV 8.8 fL (7.6-11.3); RBC Red Blood Cell Count 4.79 M/uL (3.86-4.86)
[2020-09-09] MEDS ORDERED: ONDANSETRON 4 MG/2 ML VIAL ONE (03:26)
[2020-09-09] MEDS ORDERED: NA CHLORIDE 0.9% 500 ML ONE (03:26)
[2020-09-09] MEDS ORDERED: MEPERIDINE HCL 25 MG/ML SYR ONE (04:17)
[2020-09-09 04:21] LABS: Urine Blood Negative (Negative); Urine Glucose Negative (Negative); Urine Protein 1+ (Negative); Urine Specific Gravity >=1.030 (1.005-1.030); Urine pH 5.5 (5.0-7.0)
--- NOTE | 2020-09-09 05:04 | EDPHYS ---
Physician Documentation [facility] Name: Felicity Anaya Age: 30 yrs Sex: Female : 1990 Arrival Date: 09/09/2020 Time: 02:02 Bed 16 Private MD: ED Physician Giuseppe Almendarez HPI: 09/09 02:22 This 30 yrs old Female presents to ER via Unassigned with complaints of rn Abdominal Pain. 02:22 The patient presents with abdominal pain that is diffuse. Onset: The symptoms/episode rn began/occurred 3 hour(s) ago. The symptoms do not radiate. Associated signs and symptoms: Pertinent positives: nausea and vomiting, Pertinent negatives: blood in stools, chest pain, constipation, diarrhea, dysuria, fever, shortness of breath, vomiting blood. The symptoms are described as achy, intermittent. Modifying factors: The symptoms are alleviated by nothing, the symptoms are aggravated by touching the area. Severity of pain: At its worst the pain was moderate in the emergency department the pain is unchanged. The patient has not experienced similar symptoms in the past. The patient has not recently seen a physician. Reports diffuse abd pain, began 3 hours ago, no fever, + chills, no cough/runny nose/sob/diarrhea. No blood in stool. Reports son with strep recently but 10 days ago.. Historical: - Allergies: 02:24 No Known Allergies; iw - Home Meds: 02:24 None [Active]; iw - PMHx: 02:24 Ovarian cyst; iw - PSHx: 02:24 ovarian cyst sx; ; iw - Immunization history:: Adult Immunizations not up to date, Client reports receiving the 1st dose of the Covid vaccine. - Social history:: Smoking status: . - Family history:: not pertinent. - Hospitalizations: : No recent hospitalization is reported. ROS: 02:22 Constitutional: Negative for fever,and weight loss, Eyes: Negative for injury, pain, rn redness, and discharge, ENT: Negative for injury, pain, and discharge, Neck: Negative for injury, pain, and swelling, Cardiovascular: Negative for chest pain, palpitations, and edema, Respiratory: Negative for shortness of breath, cough, wheezing, and pleuritic chest pain, Abdomen/GI: + abd pain and nausea/vomiting Back: Negative for injury and pain, : Negative for injury, bleeding, discharge, and swelling, MS/Extremity: Negative for injury and deformity, Skin: Negative for injury, rash, and discoloration, Neuro: Negative for headache, weakness, numbness, tingling, and seizure. Exam: 02:22 Constitutional: This is a well developed, well nourished patient who is awake, alert, rn and in no acute distress. Head/Face: Normocephalic, atraumatic. Cardiovascular: Tachycardic, regular. No pulse deficits. Respiratory: No increased work of breathing, no retractions or nasal flaring. Abdomen/GI: soft, + tender in all 4 quadrants, most tender periumbilical Skin: Warm, dry with normal turgor. Normal color with no rashes, no lesions, and no evidence of cellulitis. MS/ Extremity: Pulses equal, no cyanosis. Neurovascular intact. Full, normal range of motion. Equal circumference. Neuro: Awake and alert, GCS 15 Vital Signs: 02:21 Pulse 104; Resp 16 S; Temp 97.7(TE); Pulse Ox 98% on R/A; Weight 89.36 kg; Height 5 ft. iw 2 in. (157.48 cm); Pain 10/10; 03:45 BP 113 / 65; Pulse 103; Resp 16; Pulse Ox 100% on R/A; jb4 04:45 BP 114 / 67; Pulse 90; Resp 18; Pulse Ox 100% on R/A; jb4 02:21 Body Mass Index 36.03 (89.36 kg, 157.48 cm) iw MDM: 02:12 Patient medically screened. rn 05:02 Differential diagnosis: appendicitis, diverticulitis, gastritis, non-specific abd pain, rn pancreatitis, Ureterolithiasis, urinary tract infection. Data reviewed: vital signs, nurses notes, lab test result(s), radiologic studies, CT scan, and as a result, I will discharge patient. Counseling: I had a detailed discussion with the patient and/or guardian regarding: the historical points, exam findings, and any diagnostic results supporting the discharge/admit diagnosis, lab results, radiology results, the need for outpatient follow up, to return to the emergency department if symptoms worsen or persist or if there are any questions or concerns that arise at home. Response to treatment: the patient's symptoms have markedly improved after treatment, and as a result, I will discharge patient. Special discussion: Based on the patient's Hx, exam, and Dx evaluation, there is no indication for emergent surgery or inpatient Tx. It is understood by the patient/guardian that if the Sx's persist or worsen they need to return immediately for re-evaluation. I discussed with the patient/guardian in detail that at this point there is no indication for admission to the hospital. It is understood, however, that if the symptoms persist or worsen the patient needs to return immediately for re-evaluation. Based on the history and exam findings, there is no indication for further emergent testing or inpatient evaluation. I discussed with the patient/guardian the need to see the primary care provider for further evaluation of the symptoms. ED course: No acute findings on CT abdomen, possible viral syndrome, will dc home with prn sanjeevfran and pcp f/u.. 09/09 02:21 Order name: Basic Metabolic Panel 09/09 02:21 Order name: CBC with Diff 09/09 02:21 Order name: Hepatic Function 09/09 02:21 Order name: Lipase; Complete Time: 03:18 rn 09/09 02:21 Order name: Urine Microscopic Only 09/09 02:21 Order name: Basic Metabolic Panel; Complete Time: 03:18 EDNC 09/09 02:21 Order name: CT Abd/Pelvis - IV Contrast Only 09/09 02:21 Order name: CBC with Automated Diff; Complete Time: 03:40 EDNC 09/09 02:21 Order name: Liver (Hepatic) Function; Complete Time: 03:18 EDNC 09/09 04:21 Order name: Urine Dipstick-Ancillary; Complete Time: 04:27 EDNC 09/09 04:34 Order name: Urine --Ancillary (enter results) ea 09/09 02:21 Order name: IV Saline Lock; Complete Time: 02:47 rn 09/09 02:21 Order name: Labs collected and sent; Complete Time: 02:47 rn 09/09 02:21 Order name: Urine Test (obtain specimen); Complete Time: 04:21 rn 09/09 02:21 Order name: Urine Dipstick-Ancillary (obtain specimen); Complete Time: 04:21 rn Administered Medications: 03:14 Drug: Zofran (Ondansetron) 4 mg Route: IVP; Site: left antecubital; jb4 03:45 Follow up: Response: No adverse reaction; Marked relief of symptoms jb4 03:14 Drug: NS 0.9% 500 ml Route: IV; Rate: bolus; Site: left antecubital; jb4 04:00 Follow up: Response: No adverse reaction; IV Status: Completed infusion; IV Intake: jb4 500ml 04:00 Drug: Demerol (meperidine) 25 mg Route: IVP; Site: left antecubital; jb4 04:30 Follow up: Response: No adverse reaction; Marked relief of symptoms; Pain is decreased; jb4 RASS: Alert and Calm (0) Disposition: 09/09/20 05:04 Discharged to Home. Impression: Unspecified abdominal pain, Vomiting, unspecified. - Condition is Stable. - Discharge Instructions: Abdominal Pain, Adult, Nausea and Vomiting, Adult. - Prescriptions for Zofran ODT 4 mg Oral tablet,disintegrating - place 1 tablet by TRANSLINGUAL route every 8 hours As needed; 20 tablet. - Medication Reconciliation Form, Thank You Letter, Antibiotic Education, Prescription Opioid Use form. - Follow up: Private Physician; When: As needed; Reason: Recheck today's complaints, Re-evaluation by your physician. - Problem is new. - Symptoms have improved. Signatures: Dispatcher [employer] EDRoseanna Shipley RN RN iw Nieto, Roman, MD MD rn Bryson, James, RN RN jb4 Corrections: (The following items were deleted from the chart) 05:22 05:04 09/09/2020 05:04 Discharged to Home. Impression: Unspecified abdominal pain; jb4 Vomiting, unspecified. Condition is Stable. Forms are Medication Reconciliation Form, Thank You Letter, Antibiotic Education, Prescription Opioid Use. Follow up: Private Physician; When: As needed; Reason: Recheck today's complaints, Re-evaluation by your physician. Problem is new. Symptoms have improved. rn
--- NOTE | 2020-09-09 05:04 | ER ---
Nurse's Notes [facility] Name: Felicity Anaya Age: 30 yrs Sex: Female : 1990 Arrival Date: 09/09/2020 Time: 02:02 Bed 16 Private MD: Diagnosis: Unspecified abdominal pain;Vomiting, unspecified Presentation: 09/09 02:21 Chief complaint: Patient states: generalized abd pain started at 11 pm, vomited X 3 , iw no diarrhea, no fever. Coronavirus screen: Client presents with at least one sign or symptom that may indicate coronavirus-19. Provider contacted for isolation considerations. Ebola Screen: Patient negative for fever greater than or equal to 101.5 degrees Fahrenheit, and additional compatible Ebola Virus Disease symptoms Patient denies exposure to infectious person. Patient denies travel to an Ebola-affected area in the 21 days before illness onset. No symptoms or risks identified at this time. Initial Sepsis Screen: Does the patient meet any 2 criteria? No. Patient's initial sepsis screen is negative. Does the patient have a suspected source of infection? No. Patient's initial sepsis screen is negative. Risk Assessment: Do you want to hurt yourself or someone else? Patient reports no desire to harm self or others. Onset of symptoms was September 09, 2020. 02:21 Method Of Arrival: Ambulatory iw 02:21 Acuity: MARCOS 3 iw Historical: - Allergies: 02:24 No Known Allergies; iw - Home Meds: 02:24 None [Active]; iw - PMHx: 02:24 Ovarian cyst; iw - PSHx: 02:24 ovarian cyst sx; ; iw - Immunization history:: Adult Immunizations not up to date, Client reports receiving the 1st dose of the Covid vaccine. - Social history:: Smoking status: . - Family history:: not pertinent. - Hospitalizations: : No recent hospitalization is reported. Screenin:20 Abuse screen: Denies threats or abuse. Nutritional screening: No deficits noted. jb4 Tuberculosis screening: No symptoms or risk factors identified. Fall Risk None identified. Assessment: 02:20 General: Appears in no apparent distress. uncomfortable, Behavior is calm, cooperative, jb4 appropriate for age. Pain: Complains of pain in abdomen Pain does not radiate. Pain currently is 10 out of 10 on a pain scale. Quality of pain is described as stabbing. Neuro: Level of Consciousness is awake, alert, obeys commands, Oriented to person, place, time, situation. Cardiovascular: Patient's skin is warm and dry. Respiratory: Airway is patent Respiratory effort is even, unlabored, Respiratory pattern is regular, symmetrical. GI: Abdomen is round non-distended, obese, Reports lower abdominal pain, upper abdominal pain, nausea. : No signs and/or symptoms were reported regarding the genitourinary system. EENT: No signs and/or symptoms were reported regarding the EENT system. Derm: Skin is intact, Skin is pink, warm \T\ dry. Musculoskeletal: Circulation, motion, and sensation intact. Range of motion: intact in all extremities. 03:30 Reassessment: Patient appears in no apparent distress at this time. Patient and/or jb4 family updated on plan of care and expected duration. Pain level reassessed. Patient is alert, oriented x 3, equal unlabored respirations, skin warm/dry/pink. 04:30 Reassessment: Patient appears in no apparent distress at this time. Patient and/or jb4 family updated on plan of care and expected duration. Pain level reassessed. Patient is alert, oriented x 3, equal unlabored respirations, skin warm/dry/pink. Patient states feeling better. Vital Signs: 02:21 Pulse 104; Resp 16 S; Temp 97.7(TE); Pulse Ox 98% on R/A; Weight 89.36 kg; Height 5 ft. iw 2 in. (157.48 cm); Pain 10/10; 03:45 BP 113 / 65; Pulse 103; Resp 16; Pulse Ox 100% on R/A; jb4 04:45 BP 114 / 67; Pulse 90; Resp 18; Pulse Ox 100% on R/A; jb4 02:21 Body Mass Index 36.03 (89.36 kg, 157.48 cm) ED Course: 02:02 Patient arrived in ED. ag3 02:12 Giuseppe Almendarez MD is Attending Physician. rn 02:20 Patient has correct armband on for positive identification. Bed in low position. Call jb4 light in reach. Side rails up X 1. Pulse ox on. NIBP on. 02:23 Triage completed. iw 02:25 Arm band placed on. iw 02:31 Salty Alfaro, RN is Primary Nurse. jb4 02:41 Inserted saline lock: 22 gauge in left antecubital area, using aseptic technique. Blood ds4 collected. 04:47 CT Abd/Pelvis - IV Contrast Only In Process Unspecified. EDMS 05:21 No provider procedures requiring assistance completed. IV discontinued, intact, jb4 bleeding controlled, No redness/swelling at site. Pressure dressing applied. Administered Medications: 03:14 Drug: Zofran (Ondansetron) 4 mg Route: IVP; Site: left antecubital; jb4 03:45 Follow up: Response: No adverse reaction; Marked relief of symptoms jb4 03:14 Drug: NS 0.9% 500 ml Route: IV; Rate: bolus; Site: left antecubital; jb4 04:00 Follow up: Response: No adverse reaction; IV Status: Completed infusion; IV Intake: jb4 500ml 04:00 Drug: Demerol (meperidine) 25 mg Route: IVP; Site: left antecubital; jb4 04:30 Follow up: Response: No adverse reaction; Marked relief of symptoms; Pain is decreased; jb4 RASS: Alert and Calm (0) Intake: 04:00 IV: 500ml; Total: 500ml. jb4 Outcome: 05:04 Discharge ordered by . rn 05:21 Discharged to home ambulatory. jb4 05:21 Condition: stable 05:21 Discharge instructions given to patient, Instructed on discharge instructions, follow up and referral plans. medication usage, Demonstrated understanding of instructions, follow-up care, medications, Prescriptions given X 1. 05:22 Patient left the ED. jb4 Addendum: 09/12/2020 14:05 Addendum: Culture Results: Positive urine culture. Patient was not prescribed a a5 antibiotics at discharge. Report given to JAILYN for further evaluation and then to secretarial teacher for follow up with patient. Phone call Attempt #1 checked on pt [id number] and pt reports improvement of symptoms. Pt also denies urinary s/s. Pt instructed to follow-up with PCP per Lydia Jurado NP. Signatures: Dispatcher [employer] EDMD Roseanna Nunez RN RN iw Nieto, Roman, MD MD rn Calderon, Audri, RN RN aa5 Fermin De La Cruz ds4 Salty Alfaro RN RN jb4 Bonnie Graves ag3 Corrections: (The following items were deleted from the chart) 09/09 04:22 00:14 NS 0.9% 500 ml IV at bolus in left antecubital jb4 jb4
[2020-09-09 05:29] VITALS: TEMP 97.7
[2020-09-09 05:34] VITALS: BP 114/67; O2SAT 100
[2020-09-09 05:41] LABS: Urine Bacteria 20-50 /HPF (<20); Urine RBC <5 /HPF (NONE SEEN)
[2020-09-09 06:41] LABS: Urine Specific Gravity/Preg >1.030 (1.005-1.030)
--- NOTE | 2020-09-09 15:31 | RAD REPORT ---
EXAM DESCRIPTION: CT - Abdomen Pelvis W Contrast - 09/09/2020 6:37 am COMPARISON: None. CLINICAL HISTORY: [facility] MAIN ABD PAIN TECHNIQUE: CT of the abdomen and pelvis was acquired with IV contrast material. Coronal and sagitt al reconstructions were obtained. Automated exposure control was utilized on this examination as a dose lowering technique. FINDINGS: Lung bases: Clear. Liver: Normal. Gallbladder and biliary: Normal gallbladder. Unremarkable biliary tree. Pancreas: Normal. Spleen: Normal. Adrenal glands: Normal adrenal glands. Kidneys: Normal kidneys Stomach and Small Bowel: The stomach and small bowel are normal. Urinary bladder: Normal. Uterus and Adnexa: A right sided corpus luteum is noted. Otherwise unremarkable. Colon and Appendix: The colon is unremarkable. No evidence of appendicitis. Retroperitoneum and lymph nodes: Normal. Vascular: Normal. Peritoneal cavity: No ascites or free air. Musculoskeletal and soft tissues: Soft tissues are unremarkable. No aggressive bone lesions. Age-in determinate nondisplaced right L5 pars fracture. IMPRESSION: 1. No acute intra-abdominal abnormality. 2. Age-indeterminate nondisplaced right L5 pars fracture. Electronically signed by: Mando Long MD 09/09/2020 4:56 AM CDT Due to temporary technical issues with the PACS/Fluency reporting system, reports are being signed by the in house radiologists without review as a courtesy to insure prompt reporting. The interpreting radiologist is fully responsible for the content of the report.
== END 2020-09-09 05:22 | disposition home or self-care (01) ==
LOC: ER 01:58
DX: R10.84 Generalized abdominal pain (principal); R11.2 Nausea with vomiting, unspecified
CPT/HCPCS: 87088; 85025; 87086; 80048; 36415; 81025; 80076; 83690; 74177; Q9967; J2175; J7040; J2405; 81003; 81015; 87077; 87186; 96361; 96374; 96375; 99284

== ENCOUNTER 2021-04-25 19:48 | Emergency (ER) | payer OTHER ==
--- OUTSIDE RECORDS SUMMARY | 2021-04-25 19:51 | XMS REPORT | Continuity of Care Document ---
:1990 Author Organization [facility] t Address [address] [place] [address] Care Team Providers Name Role Phone NAKIA NEWTON Primary Care Physician Unavailable Thai ARMSTRONG Attending Clinician Unavailable Jose Luis LUTZ Attending Clinician Unavailable Cullen NEWTON Attending Clinician Unavailable Aman CONTINUOUS IMPROVEMENT SPECIALIST, R Attending Clinician Ultrasound Attending Clinician Unavailable Payers Payer Name Policy Type Policy Number Effective Date Expiration Date [facility] [id number] 2019 [facility] MEDICA[facility] 00:00:00 Problems This patient has no known problems. Allergies, Adverse Reactions, Alerts Allergy Allergy Status Severity Reaction(s) Onset Inactive Treating Comm ents Source Name Type Date Date Clinician NO KNOWN Drug Active [facility]ERGIE Class [facility] Medications This patient has no known medications. Procedures This patient has no known procedures. Encounters Start End Encounter Admission Attending Care Care Encounter Source Date/Time Date/Time Type Type Clinicians Facility Department ID 2021-03-13 Outpatient [facility] [id number] [facility] 2021-05-13 Outpatient R AKINYOAN, [facility] [id number] Univers 15:15:00 15:15:00 DAVONTE [id number] [facility] 2020-12-24 2020-12-24 Outpatient R AKINSIJAMEY, [facility] [id number] Univers 09:30:00 09:30:00 DAVONTE [id number] [facility] 2020-12-24 2020-12-24 [facility] [id number] Univers 09:30:00 09:30:[address] [facility] 2020-11-26 2020-11-26 Outpatient R AKINSIPE, [facility] [id number] Univers 09:00:00 09:00:00 DAVONTE [id number] ity o [facility] 2020-11-26 2020-11-26 Outpatient R AKINSIPE, [facility] [id number] Univers 09:00:00 09:00:[address] [facility] 2020-10-30 2020-10-30 Outpatient R AKINSIPE, [facility] [id number] Univers 08:15:00 08:15:[id number] [facility] 2020-10-30 2020-10-30 Outpatient R AKINSIPE, [facility] [id number] Univers 08:15:00 08:15:[address] [facility] 2020-10-24 2020-10-24 Outpatient NELDA, [facility] [id number] Univers 08:15:00 08:15:00 OGDWIN [id number] y [facility] 2020-10-24 2020-10-24 [facility] [id number] Univers 08:15:00 08:15:00 GODWIN y [facility] 2020-07-15 2020-07-15 Outpatient R [facility] [id number] Univers 09:00:00 09:00:00 [id number] ity [facility] 2020-07-15 2020-07-15 Outpatient R [facility] [id number] Univers 09:00:00 09:00:00 ity [facility] 2020-07-03 2020-07-03 Outpatient R [facility] [id number] Univers 10:30:00 10:30:00 [id number] ity [facility] 2020-07-03 2020-07-03 Outpatient R [facility] [id number] Univers 10:30:00 10:30:00 ity [facility] 2020-06-30 2020-06-30 Outpatient R [facility] [id number] Univers 09:30:00 09:30:00 [id number] [facility] 2020-06-30 2020-06-30 Outpatient R [facility] [id number] Univers 09:30:00 09:30:00 y [facility] 2020-05-29 2020-05-29 Outpatient R AMAN [facility] [id number] Univers 10:45:00 10:45:00 ROSALEXANDRANDA [id number] itarnua o [facility] 2020-05-29 2020-05-29 Outpatient R AMAN [facility] [id number] Univers 10:45:00 10:45:[address] [facility] 2020-02-11 2020-02-11 Outpatient R AMAN [facility] [id number] Univers 09:45:00 09:45:00 NAKIA [id number] ity o [facility] 2020-02-11 2020-02-11 Outpatient R AMAN [facility] [id number] Univers 09:45:00 09:45:[address] [facility] 2020-01-28 2020-01-28 Outpatient R AMAN [facility] [id number] Univers 15:00:00 15:00:00 NAKIA [id number] itaruna o [facility] 2020-01-28 2020-01-28 Outpatient R AMAN [facility] [id number] Univers 15:00:00 15:00:[address] [facility] 2020-01-28 2020-01-28 Outpatient R AMAN [facility] [id number] Univers 13:15:00 13:15:[address] [facility] 2020-01-07 2020-01-07 Outpatient R AMAN [facility] [id number] Univers 11:00:00 11:00:[address] [facility] 2020-01-01 2020-01-01 Outpatient [facility] [id number] Univers 10:00:00 10:00:00 [id number] [facility] 2019-12-18 2019-12-18 Outpatient R AMAN [facility] [id number] Univers 11:00:00 11:00:00 NAKIA suearuna o [facility] 2019-12-18 2019-12-18 Outpatient Cullen NEWTON [facility] [id number] Univers 11:00:00 11:00:00 NAKIA rogersaruna o [facility] 2019-12-11 2019-12-11 Outpatient Cullen NEWTON [facility] [id number] Univers 12:45:00 12:45:00 NAKIA [id number] suearuna o [facility] 2019-12-11 2019-12-11 Outpatient Cullen NEWTON [facility] [id number] Univers 12:45:00 12:45:00 NAKIA rogersaruna o [facility] 2019-12-05 2019-12-05 Outpatient Cullen NEWTON [facility] [id number] Univers 07:45:00 07:45:00 NAKIA [id number] usearuna o [facility] 2019-12-05 2019-12-05 Outpatient Cullen NEWTON [facility] [id number] Univers 07:45:00 07:45:[address] [facility] 2019-12-04 2019-12-04 Outpatient Cullen NEWTON [facility] [id number] Univers 11:00:00 11:00:00 NAKIA rogersaruna o [facility] 2019-12-04 2019-12-04 Outpatient [facility] [id number] Univers 10:00:00 10:00:00 [id number] it[facility] 2019-11-21 2019-11-21 Outpatient Cullen NEWTON [facility] [id number] Univers 15:00:00 15:00:00 NAKIA itaruna o [facility] 2019-11-21 2019-11-21 Outpatient Cullen NEWTON [facility] [id number] Univers 15:00:00 15:00:00 NAKIA rogersaruna o [facility] 2019-11-07 2019-11-07 Outpatient Cullen NEWTON [facility] [id number] Univers 15:45:00 15:45:00 NAKIA [id number] ity o [facility] 2019-11-07 2019-11-07 Outpatient R AMAN [facility] [id number] Univers 15:45:00 15:45:00 NAKIA ity o [facility] 2019-11-06 2019-11-06 Outpatient R [facility] [id number] Univers 10:00:00 10:00:00 ity [facility] 2019-11-06 2019-11-06 Outpatient [facility] [id number] Univers 10:00:00 10:00:00 [id number] ity [facility] 2019-10-24 2019-10-24 Outpatient R AMAN [facility] [id number] Univers 14:30:00 14:30:00 NAKIA ity o [facility] 2019-10-24 2019-10-24 Outpatient R AMAN [facility] [id number] Univers 14:30:00 14:30:00 NAKIA rogersy o [facility] 2019-10-11 2019-10-11 Outpatient R [facility] [id number] Univers 08:30:00 08:30:00 [id number] ity [facility] 2019-10-11 2019-10-11 Outpatient R [facility] [id number] Univers 08:30:00 08:30:00 ity [facility] 2019-10-10 2019-10-10 Outpatient R AMAN [facility] [id number] Univers 11:00:00 11:00:00 NAKIA [id number] suey o [facility] 2019-10-10 2019-10-10 Outpatient R AMAN [facility] [id number] Univers 11:00:00 11:00:00 NAKIA ity o [facility] 2019-10-09 2019-10-09 Outpatient R [facility] [id number] Univers 10:00:00 10:00:00 [id number] ity [facility] 2019-10-09 2019-10-09 Outpatient P [facility] [id number] Univers 10:00:00 10:00:00 ity [facility] 2019-10-03 2019-10-03 Outpatient R AMAN [facility] [id number] Univers 15:00:00 15:00:00 YINGNDHelena ity o [facility] 2019-10-03 2019-10-03 Outpatient Cullen NEWTON [facility] [id number] Univers 15:00:00 15:00:00 ROSHUNDA ity o [facility] 2019-10-01 2019-10-01 Outpatient Cullen NEWTON [facility] [id number] Univers 09:15:00 09:15:00 ROSALEXANDRANDHelnea [id number] itaruna o [facility] 2019-10-01 2019-10-01 Outpatient Cullen NEWTON [facility] [id number] Univers 09:15:00 09:15:[address] [facility] 2019-09-20 2019-09-20 [facility] [id number] 13:08:49 13:17:04 Roshunda R [employer] [id number] Visit REGIONAL [id number] MATERNAL [id number] & CHILD [id number] [facility] 2019-09-20 2019-09-20 Outpatient Cullen NEWTON [facility] [id number] Univers 13:00:00 13:00:[address] [facility] 2019-09-20 2019-09-20 Outpatient Cullen NEWTON [facility] [id number] Univers 13:00:00 13:00:[address] [facility] 2019-09-12 2019-09-12 Telephone [facility] [id number] 00:00:00 00:00:00 Roshunda R [employer] OIL DRIVER [id number] REGIONAL [id number] MATERNAL [id number] & CHILD 107 [facility] 2019-09-04 2019-09-04 Outpatient uCllen NEWTON [facility] [id number] Univers 10:00:00 10:00:00 YINGNDHelena [id number] ity o [facility] 2019-09-04 2019-09-04 Outpatient Cullen NEWTON [facility] [id number] Univers 10:00:00 10:00:00 ROSHUNDA ity o [facility] 2019-09-04 2019-09-04 Telephone Aman [facility] [id number] 00:00:00 00:00:00 Rosalexandranda R [employer] OIL DRIVER [id number] REGIONAL [id number] MATERNAL [id number] & CHILD 107 [facility] 2019-08-08 2019-08-08 Abstract Aman [facility] [id number] 00:00:00 00:00:00 Rosalexandranda R CRUDE OIL DRIVER [id number] REGIONAL [id number] MATERNAL [id number] & CHILD 107 [facility] 2019-08-07 2019-08-07 Rejoiner Ultrasound, [facility] [id number] 10:33:10 16:33:02 Visit [facility] CRUDE OIL DRIVER [id number] REGIONAL [id number] MATERNAL [id number] & CHILD [id number] [facility] 2019-08-07 2019-08-07 [facility] [id number] Univers 13:45:00 13:45:00 YINGNDA [id number] ity o [facility] 2019-08-07 2019-08-07 Outpatient R AMAN [facility] [id number] Univers 13:45:00 13:45:00 ROSHUNDA ity o [facility] 2019-08-07 2019-08-07 Outpatient P [facility] [id number] Univers 10:30:00 10:30:00 ity of [facility] 2019-07-09 2019-07-09 [facility] [id number] Univers 11:00:00 11:00:[address] [facility] Results This patient has no known results.
[2021-04-25] MEDS ORDERED: NA CHLORIDE 0.9% 2,000 ML ONE (20:19)
[2021-04-25] MEDS ORDERED: ACETAMINOPHEN 500 MG TAB ONE (20:19)
[2021-04-25] MEDS ORDERED: MORPHINE 2 MG/ML SYR ONE ×2 (20:48→22:41)
[2021-04-25] MEDS ORDERED: ONDANSETRON 4 MG/2 ML VIAL ONE (20:48)
[2021-04-25] MEDS ORDERED: FAMOTIDINE 20 MG/2 ML VIAL IV ONE (20:48)
[2021-04-25 21:02] LABS: Absolute Lymphocytes (CBC) 1.2 K/uL (0.7-4.9); Basophils % 0.5 % (0-1.3); Hematocrit 40.4 % (36.0-45.0); Lymphocytes % 16.9 % (15.3-44.8); MPV 8.2 fL (7.6-11.3); RBC Red Blood Cell Count 4.75 M/uL (3.86-4.86)
[2021-04-25 21:03] LABS: Protime INR 1.15
[2021-04-25 21:21] LABS: ALT/SGPT 16 U/L (12-78); AST/SGOT 13 U/L (15-37); Albumin 3.5 g/dL (3.4-5.0); Alkaline Phosphatase 98 U/L (45-117); BUN Blood Urea Nitrogen 11 mg/dL (7-18); Bicarbonate 26 mmol/L (21-32); Bilirubin Direct 0.1 mg/dL (0-0.2); Bilirubin Total 0.4 mg/dL (0.2-1.0); Glucose Level 101 mg/dL (74-106); Lipase 97 U/L (73-393); NT PRO-BNP 70 pg/mL (<125); Potassium 3.7 mmol/L (3.5-5.1); Protein, Total 7.8 g/dL (6.4-8.2); Sodium Level 138 mmol/L (136-145); Troponin (Emerg Dept Use Only) < 0.02 ng/mL (0.0-0.045)
--- NOTE | 2021-04-25 21:22 | RAD REPORT ---
EXAM DESCRIPTION: RAD - Chest Single View - 04/25/2021 8:48 pm CLINICAL HISTORY: Chest pain;Cough COMPARISON: CHEST PA AND LAT 2 VIEW dated 02/10/2012 FINDINGS: Lines: None. Lungs: No evidence of edema or pneumonia. Pleural: No significant pleural effusions or pneumothorax. Cardiac: The heart size is within normal limits. Bones: No acute fractures. Other: IMPRESSION: No acute cardiopulmonary disease.
--- NOTE | 2021-04-25 21:22 | RAD REPORT ---
EXAM DESCRIPTION: US - Abdomen Exam Limited - 04/25/2021 8:57 pm CLINICAL HISTORY: Abd pain;Fever COMPARISON: Abdomen Pelvis W Contrast dated 09/09/2020 FINDINGS: The gallbladder demonstrates no gallstones. No pericholecystic fluid or gallbladder wall t hickening. The common bile duct is normal measuring 3 mm. The liver demonstrates no findings of intrahepatic biliary dilatation. IMPRESSION: Unremarkable examination.
--- NOTE | 2021-04-25 21:22 | RAD REPORT ---
EXAM DESCRIPTION: CTAbdomen Pelvis W Contrast - 04/25/2021 9:05 pm CLINICAL HISTORY: ABD PAIN COMPARISON: Abdomen Pelvis W Contrast dated 09/09/2020; Abdomen Pelvis W Contrast dated 01/04/2017 ; CT ABD PELVIS W CONTRAST dated 10/21/2014bdomen Pelvis W Contrast dated 09/09/2020; Abdomen Pelvi s W Contrast dated 01/04/2017; CT ABD PELVIS W CONTRAST dated 10/21/2014; Abdomen Exam Limited dated 03/2021 TECHNIQUE: CT of the abdomen and pelvis was performed. All CT scans are performed using dose optimization technique as appropriate and may include automated exposure control or mA/KV adjustment according to patient size. FINDINGS: Lower chest: No acute abnormality. Liver: No acute abnormality or suspicious lesions. Biliary: No biliary ductal dilatation. Stomach: No significant focal abnormality. Duodenum: No significant focal abnormality. Pancreas: No significant abnormality. Spleen: No significant abnormality. Adrenal: No suspicious lesions. Kidney/ureter: No hydronephrosis. No renal calculi. Tiny right renal lesion which is almost certainly benign. Retroperitoneum: No retroperitoneal adenopathy. Vascular: No aneurysm. Intraluminal filling defect in the left ovarian vein which is new compared wit h 01/04/2017. The vein is also larger in caliber. It may have been present in retrospect on the CT fr om 09/09/2020 but the venous opacification is not as robust as today's CT. Bowel: No significant focal abnormality. Normal appendix. Peritoneum: No ascites or free air. Bladder: Grossly unremarkable. Reproductive: No adnexal masses. Bones: No acute fracture. Other: n/a IMPRESSION: No acute intra-abdominal or pelvic finding. Normal appendix. 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 The finding is new since 01/04/2017.
[2021-04-25 21:43] LABS: SARS-COV-2 RT PCR NEGATIVE (NEGATIVE)
[2021-04-25] MEDS ORDERED: NA CHLORIDE 0.9% 50 ML ONE (21:58)
[2021-04-25] MEDS ORDERED: CEFTRIAXONE 1000 MG/VIAL ONE (21:58)
--- NOTE | 2021-04-25 23:01 | EDPHYS ---
Physician Documentation [facility] Name: Felicity Anaya Age: 31 yrs Sex: Female : 1990 Arrival Date: 04/25/2021 Time: 19:50 Bed 8 Private MD: ED Physician Steven Hannah HPI: 04/25 20:23 This 31 yrs old Female presents to ER via Ambulatory with complaints of Chest raina Pressure, Abdominal Pain, Headache. 20:23 The patient or guardian reports chest pain that is located primarily in the substernal raina area, anterior chest wall, bilaterally, xiphoid area, right breast and left breast. 20:23 The patient presents with abdominal pain in the epigastric area, in the upper abdomen. raina Onset: The symptoms/episode began/occurred 2 day(s) ago. The symptoms do not radiate. The pain does not radiate. Associated signs and symptoms: none. The symptoms are described as crampy. Modifying factors: The symptoms are alleviated by nothing. Associated signs and symptoms: Pertinent positives: abdominal pain, cough, lightheadedness, nausea. The chest pain is described as dull. 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 - Family history:: not pertinent. - Social history:: Smoking status: Patient denies any tobacco usage or history of. ROS: 20:23 Eyes: Negative for injury, pain, redness, and discharge, ENT: Negative for injury, raina pain, and discharge, Neck: Negative for injury, pain, and swelling, Cardiovascular: Negative for chest pain, palpitations, and edema, Respiratory: Negative for shortness of breath, cough, wheezing, and pleuritic chest pain, Back: Negative for injury and pain, : Negative for injury, bleeding, discharge, and swelling, MS/Extremity: Negative for injury and deformity, Skin: Negative for injury, rash, and discoloration, Neuro: Negative for headache, weakness, numbness, tingling, and seizure, Psych: Negative for depression, anxiety, suicide ideation, homicidal ideation, and hallucinations, Allergy/Immunology: Negative for hives, rash, and allergies, Endocrine: Negative for neck swelling, polydipsia, polyuria, polyphagia, and marked weight changes, Hematologic/Lymphatic: Negative for swollen nodes, abnormal bleeding, and unusual bruising. 20:23 Constitutional: Positive for fever, malaise. 20:23 Abdomen/GI: Positive for abdominal pain, of the epigastric area, right upper quadrant and left upper quadrant. Exam: 20:23 Head/Face: Normocephalic, atraumatic. Eyes: Pupils equal round and reactive to light, raina extra-ocular motions intact. Lids and lashes normal. Conjunctiva and sclera are non-icteric and not injected. Cornea within normal limits. Periorbital areas with no swelling, redness, or edema. ENT: Nares patent. No nasal discharge, no septal abnormalities noted. Tympanic membranes are normal and external auditory canals are clear. Oropharynx with no redness, swelling, or masses, exudates, or evidence of obstruction, uvula midline. Mucous membranes moist. Neck: Trachea midline, no thyromegaly or masses palpated, and no cervical lymphadenopathy. Supple, full range of motion without nuchal rigidity, or vertebral point tenderness. No Meningismus. Chest/axilla: Normal chest wall appearance and motion. Nontender with no deformity. No lesions are appreciated. Cardiovascular: Regular rate and rhythm with a normal S1 and S2. No gallops, murmurs, or rubs. Normal PMI, no JVD. No pulse deficits. Respiratory: Lungs have equal breath sounds bilaterally, clear to auscultation and percussion. No rales, rhonchi or wheezes noted. No increased work of breathing, no retractions or nasal flaring. Back: No spinal tenderness. No costovertebral tenderness. Full range of motion. Skin: Warm, dry with normal turgor. Normal color with no rashes, no lesions, and no evidence of cellulitis. MS/ Extremity: Pulses equal, no cyanosis. Neurovascular intact. Full, normal range of motion. Neuro: Awake and alert, GCS 15, oriented to person, place, time, and situation. Cranial nerves II-XII grossly intact. Motor strength 5/5 in all extremities. Sensory grossly intact. Cerebellar exam normal. Normal gait. Psych: Awake, alert, with orientation to person, place and time. Behavior, mood, and affect are within normal limits. 20:23 Constitutional: The patient appears febrile. 20:23 Abdomen/GI: Inspection: abdomen appears normal, Bowel sounds: hyperactive, in all quadrants, Palpation: mild abdominal tenderness, in the epigastric area, right upper quadrant and left upper quadrant, Liver: no appreciated palpable abnormalities, Hernia: not appreciated. 20:39 ECG was reviewed by the Attending Physician. raina Vital Signs: 20:20 BP 119 / 57; Pulse 110; Resp 18; Temp 100.5(O); Pulse Ox 100% on R/A; Weight 86.18 kg lp1 (R); Height 5 ft. 2 in. (157.48 cm); Pain 10/10; 21:32 BP 90 / 76; Pulse 92; Resp 20; Pulse Ox 97% on R/A; lp1 22:30 BP 101 / 47; Pulse 79; Resp 12; Pulse Ox 98% on R/A; Pain 7/10; lp1 22:35 Temp 98.5(O); lp1 23:43 BP 98 / 59; Pulse 73; Resp 15; Pulse Ox 96% on R/A; lp1 20:20 Body Mass Index 34.75 (86.18 kg, 157.48 cm) lp1 MDM: 20:00 Patient medically screened. raina 20:26 Differential diagnosis: coronary artery disease Cholelithiasis costochondritis, raina esophagitis, pancreatitis, pleurisy, pneumonia, unstable angina, appendicitis, bowel obstruction, cholecystitis, diverticulitis, gastritis, Irritable bowel syndrome, non-specific abd pain, Ureterolithiasis, urinary tract infection. HEART Score: History: Slightly Suspicious (0), ECG: Normal (0), Age: < or = 45 years (0), Risk Factors: No Risk Factors Known (0), Troponin: < or = 1 x Normal Limit (0). The patient's deep vein thrombosis risk score was calculated as follows: Total Score: 0. This patient was found to be at low risk for a deep vein thrombosis by using the Well's assessment criteria. The patient's pulmonary embolism risk score was calculated as follows: Total Score: 0-2 points. This patient was found to be at low risk for a pulmonary embolism by using the Well's assessment criteria. FORTINO Risk Score: TOTAL SCORE = 0. Data reviewed: vital signs, nurses notes, lab test result(s), EKG, radiologic studies, CT scan, plain films. Data reviewed:. Data interpreted: manager shift: rate is 110 beats/min, rhythm is regular, Pulse oximetry: on room air is 100 %. Test interpretation: by ED physician or midlevel provider: ECG, plain radiologic studies. Counseling: I had a detailed discussion with the patient and/or guardian regarding: the historical points, exam findings, and any diagnostic results supporting the discharge/admit diagnosis, lab results, radiology results. 04/25 20:17 Order name: Basic Metabolic Panel [facility] 04/25 20:17 Order name: CBC with Diff [facility] 04/25 20:17 Order name: LFT's [facility] 04/25 20:17 Order name: Magnesium [facility] 04/25 20:17 Order name: NT PRO-BNP [facility] 04/25 20:17 Order name: PT-INR [facility] 04/25 20:17 Order name: Troponin (emerg Dept Use Only) [facility] 04/25 20:17 Order name: Lipase [facility] 04/25 20:17 Order name: Blood Culture Adult (2) [facility] 04/25 20:17 Order name: COVID-19/FLU A+B/RSV (Document "Date of Onset" if Symptomatic); Complete [facility] Time: 22:03 04/25 20:17 Order name: Lactate; Complete Time: 21: [facility] 04/25 20:18 Order name: Basic Metabolic Panel; Complete Time: 21:26 [facility] 04/25 20:18 Order name: CBC with Automated Diff; Complete Time: 21:12 [facility] 04/25 20:17 Order name: XRAY Chest (1 view); Complete Time: 21:26 [facility] 04/25 20:17 Order name: US Abdomen Limited; Complete Time: 21:26 [facility] 04/25 20:17 Order name: CT Abd/Pelvis - IV Contrast Only; Complete Time: 21: [facility] 04/25 20:18 Order name: Liver (Hepatic) Function; Complete Time: 21:26 [facility] 04/25 20:18 Order name: Magnesium; Complete Time: 21:26 [facility] 04/25 20:18 Order name: NT PRO-BNP; Complete Time: 21:26 [facility] 04/25 20:18 Order name: Protime (+INR); Complete Time: 21:12 [facility] 04/25 20:18 Order name: Troponin (Emerg Dept Use Only); Complete Time: 21:26 [facility] 04/25 20:18 Order name: Lipase; Complete Time: 21:26 [facility] 04/25 23:28 Order name: Urine Dipstick-Ancillary; Complete Time: 23:38 [facility] 04/25 23:31 Order name: Urine --Ancillary (enter results) [facility] 04/25 20:17 Order name: EKG; Complete Time: 20:18 [facility] 04/25 20:17 Order name: Cardiac monitoring; Complete Time: 20:23 [facility] 04/25 20:17 Order name: EKG - Nurse/Tech; Complete Time: 20:23 [facility] 04/25 20:17 Order name: IV Saline Lock; Complete Time: 21:06 [facility] 04/25 20:17 Order name: Labs collected and sent; Complete Time: 21:06 [facility] 04/25 20:17 Order name: O2 Per Protocol; Complete Time: 20:23 [facility] 04/25 20:17 Order name: O2 Sat Monitoring; Complete Time: 20:23 [facility] 04/25 20:17 Order name: Urine Dipstick-Ancillary (obtain specimen); Complete Time: 23:43 [facility] 04/25 20:17 Order name: Urine Test (obtain specimen); Complete Time: 23:43 [facility] EC:39 Rate is 103 beats/min. Rhythm is regular. QRS Martha is Normal. RI interval is normal. [facility] QRS interval is normal. QT interval is normal. No Q waves. T waves are Normal. No ST changes noted. Clinical impression: Sinus tachycardia. Interpreted by me. Reviewed by me. Administered Medications: 20:26 Drug: Tylenol 1000 mg Route: PO; lp1 23:40 Follow up: Response: Temperature is decreased lp1 20:55 Drug: NS 0.9% 1000 ml Route: IV; Rate: 1 bolus; Site: left antecubital; lp1 23:39 Follow up: IV Status: Completed infusion; IV Intake: 1000ml lp1 20:55 Drug: morphine 2 mg Route: IVP; Site: left antecubital; lp1 20:55 Drug: Zofran (Ondansetron) 4 mg Route: IVP; Site: left antecubital; lp1 23:00 Follow up: Response: No adverse reaction lp1 21:23 Drug: Pepcid (famotidine) 20 mg Route: IVP; Site: left antecubital; lp1 22:30 Follow up: Response: No adverse reaction lp1 21:28 Drug: NS 0.9% 1000 ml Route: IV; Rate: 1 bolus; Site: left antecubital; lp1 23:40 Follow up: IV Status: Completed infusion; IV Intake: 600ml lp1 22:33 Drug: Rocephin (cefTRIAXone) 1 grams Route: IV; Rate: per protocol; Site: left lp1 antecubital; 23:00 Follow up: IV Status: Completed infusion; IV Intake: 50ml lp1 22:51 Drug: morphine 2 mg Route: IVP; Site: left antecubital; 5 23:40 Follow up: Response: Pain is decreased lp1 23:06 Drug: Aspirin Chewable Tablet 162 mg Route: PO; lp1 23:40 Follow up: Response: No adverse reaction lp1 Disposition Summary: 04/25/21 23:00 Discharge Ordered Location: Home raina Problem: new raina Symptoms: have improved raina Condition: Stable raina Diagnosis - Fever, unspecified raina - Chest pain, unspecified raina - Abdominal tenderness raina - Pelvic and perineal pain - left ovarian vein thrombosis raina Followup: raina - With: Private Physician - When: 2 - 3 days - Reason: Recheck today's complaints, Continuance of care, Re-evaluation by your physician Followup: raina - With: Anamika Bianchi MD - When: 2 - 3 days - Reason: Recheck today's complaints, Re-evaluation by your physician Discharge Instructions: - Discharge Summary Sheet raina - Nonspecific Chest Pain, Adult raina - Chest Wall Pain raina - Chest Wall Pain, [id number] raian - Abdominal Pain, Adult, [id number] raina - Nonspecific Chest Pain, Adult, [id number] raina - Aspirin and Your Heart raina - Fever, Adult, [id number] raina Forms: - Medication Reconciliation Form raina - Thank You Letter raina - Antibiotic Education raina - Prescription Opioid Use raina Prescriptions: - Ibuprofen 600 mg Oral Tablet - take 1 tablet by ORAL route every 6 hours As needed take with food; 30 tablet; raina Refills: 0, Product Selection Permitted - Pepcid 20 mg Oral Tablet - take 1 tablet by ORAL route every 12 hours for 10 days; 20 tablet; Refills: 0, raina Product Selection Permitted Signatures: Dispatcher [employer] Steven Mendez MD MD cha Pena, Laura RN RN lp1 Mary Mullen RN RN sm5
--- NOTE | 2021-04-25 23:01 | ER ---
Nurse's Notes [facility] Name: Felicity Anaya Age: 31 yrs Sex: Female : 1990 Arrival Date: 04/25/2021 Time: 19:50 Bed 8 Private MD: Diagnosis: Fever, unspecified;Chest pain, unspecified;Abdominal tenderness;Pelvic and perineal pain-left ovarian vein thrombosis Presentation: 04/25 20:20 Chief complaint: Patient states: reports chest pain that has been worsening since this lp1 morning; reports headache, some nausea, fever of 101 this morning. Coronavirus screen: fever, headache, nausea. Ebola Screen: No symptoms or risks identified at this time. Initial Sepsis Screen: Does the patient meet any 2 criteria? No. Patient's initial sepsis screen is negative. Does the patient have a suspected source of infection? No. Patient's initial sepsis screen is negative. Risk Assessment: Do you want to hurt yourself or someone else? Patient reports no desire to harm self or others. Onset of symptoms was April 25, 2021. 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 - Family history:: not pertinent. - Social history:: Smoking status: Patient denies any tobacco usage or history of. Screenin:30 Abuse screen: Denies threats or abuse. Denies injuries from another. Nutritional lp1 screening: No deficits noted. Tuberculosis screening: No symptoms or risk factors identified. Fall Risk None identified. Assessment: 20:30 General: Appears uncomfortable, Behavior is appropriate for age. Pain: Complains of lp1 pain in chest and epigastric area Pain does not radiate. Pain currently is 10 out of 10 on a pain scale. Quality of pain is described as sharp, Pain began gradually, Is continuous. Neuro: Level of Consciousness is awake, alert, obeys commands, Oriented to person, place, time, situation, Reports headache. Cardiovascular: Patient's skin is warm and dry. Respiratory: Respiratory effort is even, unlabored. GI: Abdomen is non-distended, Bowel sounds present X 4 quads. Abdomen is tender to palpation in epigastric area and right upper quadrant Reports nausea. : Denies burning with urination. EENT: No signs and/or symptoms were reported regarding the EENT system. Derm: Skin is pink, warm \T\ dry. Musculoskeletal: No deficits noted. 21:31 Reassessment: Reports pain decreased at this time. lp1 22:45 Reassessment: Patient reports pain to chest/epigastric area returning at this time; lp1 appears uncomfortable. 23:30 Reassessment: Patient is alert, oriented x 3, equal unlabored respirations, skin lp1 warm/dry/pink. Patient states feeling better. Patient states symptoms have improved. Vital Signs: 20:20 BP 119 / 57; Pulse 110; Resp 18; Temp 100.5(O); Pulse Ox 100% on R/A; Weight 86.18 kg lp1 (R); Height 5 ft. 2 in. (157.48 cm); Pain 10/10; 21:32 BP 90 / 76; Pulse 92; Resp 20; Pulse Ox 97% on R/A; lp1 22:30 BP 101 / 47; Pulse 79; Resp 12; Pulse Ox 98% on R/A; Pain 7/10; lp1 22:35 Temp 98.5(O); lp1 23:43 BP 98 / 59; Pulse 73; Resp 15; Pulse Ox 96% on R/A; lp1 20:20 Body Mass Index 34.75 (86.18 kg, 157.48 cm) lp1 ED Course: 19:50 Patient arrived in ED. as 19:59 Steven Hannah MD is Attending Physician. [facility] 20:20 Jackie Carpenter, ALFREDO is Primary Nurse. lp1 20:22 Triage completed. lp1 20:30 Patient maintains SpO2 saturation greater than 95% on room air. lp1 20:30 Patient has correct armband on for positive identification. Placed in gown. Bed in low lp1 position. Call light in reach. senior ui designer on. Pulse ox on. NIBP on. 20:30 Arm band placed on. lp1 20:35 Inserted saline lock: 20 gauge in left antecubital area, using aseptic technique. Blood lp1 collected. 20:35 Initial lab(s) drawn, by me, sent to lab. First set of blood cultures drawn by me. lp1 20:40 COVID swab sent to lab. Flu and/or RSV swab sent to lab. lp1 20:48 XRAY Chest (1 view) In Process Unspecified. EDMS 20:57 US Abdomen Limited In Process Unspecified. EDMS 21:04 CT Abd/Pelvis - IV Contrast Only In Process Unspecified. EDMS 22:50 Anamika Bianchi MD is Referral Physician. raina 23:41 No provider procedures requiring assistance completed. IV discontinued, No lp1 redness/swelling at site. Pressure dressing applied. Administered Medications: 20:26 Drug: Tylenol 1000 mg Route: PO; lp1 23:40 Follow up: Response: Temperature is decreased lp1 20:55 Drug: NS 0.9% 1000 ml Route: IV; Rate: 1 bolus; Site: left antecubital; lp1 23:39 Follow up: IV Status: Completed infusion; IV Intake: 1000ml lp1 20:55 Drug: morphine 2 mg Route: IVP; Site: left antecubital; lp1 20:55 Drug: Zofran (Ondansetron) 4 mg Route: IVP; Site: left antecubital; lp1 23:00 Follow up: Response: No adverse reaction lp1 21:23 Drug: Pepcid (famotidine) 20 mg Route: IVP; Site: left antecubital; lp1 22:30 Follow up: Response: No adverse reaction lp1 21:28 Drug: NS 0.9% 1000 ml Route: IV; Rate: 1 bolus; Site: left antecubital; lp1 23:40 Follow up: IV Status: Completed infusion; IV Intake: 600ml lp1 22:33 Drug: Rocephin (cefTRIAXone) 1 grams Route: IV; Rate: per protocol; Site: left lp1 antecubital; 23:00 Follow up: IV Status: Completed infusion; IV Intake: 50ml lp1 22:51 Drug: morphine 2 mg Route: IVP; Site: left antecubital; sm5 23:40 Follow up: Response: Pain is decreased lp1 23:06 Drug: Aspirin Chewable Tablet 162 mg Route: PO; lp1 23:40 Follow up: Response: No adverse reaction lp1 Intake: 23:00 IV: 50ml; Total: 50ml. lp1 23:39 IV: 1000ml; Total: 1050ml. lp1 23:40 IV: 600ml; Total: 1650ml. lp1 Outcome: 23:00 Discharge ordered by . raina 23:41 Discharged to home ambulatory, with significant other. lp1 23:41 Condition: good 23:41 Discharge instructions given to patient, Instructed on discharge instructions, follow up and referral plans. medication usage, Demonstrated understanding of instructions, follow-up care, medications, Prescriptions given X 2. 23:45 Patient left the ED. lp1 Signatures: Dispatcher [employer] EDMS Steven Hannah MD MD cha Martinez, Amelia as Pena, Laura, RN RN lp1 Mary Mullen, RN RN sm5
[2021-04-25] MEDS ORDERED: ASPIRIN 81 MG CHEWABLE TABLET ONE (23:02)
[2021-04-25 23:28] LABS: Urine Blood 3+ (Negative); Urine Glucose Negative (Negative); Urine Protein 1+ (Negative); Urine pH 5.5 (5.0-7.0)
[2021-04-25 23:56] VITALS: TEMP 98.5
[2021-04-25 23:57] VITALS: BP 98/59; O2SAT 96
== END 2021-04-25 23:45 | disposition home or self-care (01) ==
LOC: ER 19:48
DX: R07.9 Chest pain, unspecified (principal); R10.2 Pelvic and perineal pain; R10.819 Abdominal tenderness, unspecified site; Z20.822 Contact with and (suspected) exposure to COVID-19
CPT/HCPCS: 96365; 96361; 93005; 87040 ×2; 85025; 80048; 36415; 83735; 81025; 85610; 82565; 80076; 83605; 81003; 84484; 83690; 83880; 0241U; 74177; 71045; 76705; 96375; 99285; Q9967; J2270 ×2; J7030; J2405

== ENCOUNTER 2021-12-02 15:56 | Emergency (ER) | payer OTHER ==
--- NOTE | 2021-12-02 19:12 | ER ---
Nurse's Notes [facility] Name: Felicity Anaya Age: 31 yrs Sex: Female : 1990 Arrival Date: 12/02/2021 Time: 15:58 Bed 23 Private MD: Diagnosis: Coronavirus infection, unspecified Presentation: 12/02 16:30 Chief complaint: Patient states: ROME, body aches and fever starting today. Tylenol \\T\\ jh6 1300. Coronavirus screen: Vaccine status: Patient reports receiving the 2nd dose of the covid vaccine. Ebola Screen: Patient negative for fever greater than or equal to 101.5 degrees Fahrenheit, and additional compatible Ebola Virus Disease symptoms Patient denies exposure to infectious person. Patient denies travel to an Ebola-affected area in the 21 days before illness onset. Initial Sepsis Screen: Does the patient meet any 2 criteria? Temp <36.0*C (96.8*F)) or > 38.3*C (100.9*F). HR > 90 bpm. Yes Does the patient have a suspected source of infection? No. Patient's initial sepsis screen is negative. Risk Assessment: Do you want to hurt yourself or someone else? Patient reports no desire to harm self or others. Onset of symptoms was December 02, 2021. 16:30 Method Of Arrival: Ambulatory [facility] 16:30 Acuity: MARCOS 3 6 Triage Assessment: 16:33 General: Appears uncomfortable, Behavior is calm, cooperative. Pain: Complains of pain [facility] in head, chest, abdomen, pelvis, right arm, right hand, left arm, right leg, right foot, left leg and left foot Pain currently is 9 out of 10 on a pain scale. Quality of pain is described as aching, Pain began suddenly, Is continuous. EENT: Reports nasal congestion since this am pain in forehead. Historical: - Allergies: 16:33 No Known Allergies; [facility] - Home Meds: 16:33 None [Active]; 6 - PMHx: 16:33 Ovarian cyst; 6 - PSHx: 16:33 Ovarian cyst removal; 6 - Immunization history:: Adult Immunizations up to date, Client reports receiving the 2nd dose of the Covid vaccine. - Social history:: Smoking status: Patient denies any tobacco usage or history of. Screenin:46 Abuse screen: Denies threats or abuse. Denies injuries from another. Nutritional tw5 screening: No deficits noted. Tuberculosis screening: No symptoms or risk factors identified. Fall Risk None identified. Assessment: 19:45 General: Appears in no apparent distress. comfortable, Behavior is calm, cooperative, eb1 Reports chills for 12-24 hours, fever for 12-24 hours. Pain: Denies pain. Neuro: No deficits noted. Cardiovascular: No deficits noted. Respiratory: No deficits noted. Reports pain with respiration. GI: No deficits noted. No signs and/or symptoms were reported involving the gastrointestinal system. : No deficits noted. No signs and/or symptoms were reported regarding the genitourinary system. EENT: No deficits noted. No signs and/or symptoms were reported regarding the EENT system. Derm: No deficits noted. No signs and/or symptoms reported regarding the dermatologic system. Musculoskeletal: No deficits noted. No signs and/or symptoms reported regarding the musculoskeletal system. Vital Signs: 16:30 BP 107 / 59; Pulse 108; Resp 18; Temp 101(O); Pulse Ox 98% ; Weight 86.18 kg; Height 5 [facility] ft. 2 in. (157.48 cm); Pain 9/10; 19:46 BP 112 / 68; Pulse 91; Resp 20; Temp 100.1; Pulse Ox 99% ; Pain 0/10; eb1 16:30 Body Mass Index 34.75 (86.18 kg, 157.48 cm) [facility] ED Course: 15:58 Patient arrived in ED. mr 15:58 [facility]bins [facility] 15:58 Didier Phillips DO is Attending Physician. [facility] 16:33 Triage completed. jh6 16:35 Arm band placed on left wrist. Labs ordered per protocol. Drawn by ED staff. jh6 19:41 Throat Culture Sent. tw5 19:42 SARS-COV-2 RT PCR (Document "Date of Onset" if Symptomatic) Sent. tw5 19:46 No provider procedures requiring assistance completed. Patient did not have IV access tw5 during this emergency room visit. 19:47 Patient has correct armband on for positive identification. Door closed. Noise tw5 minimized. Moved to private room. Warm blanket given. Verbal reassurance given. 19:47 Patient has correct armband on for positive identification. eb1 Administered Medications: No medications were administered Medication: 19:47 VIS not applicable for this client. tw5 19:47 VIS not applicable for this client. eb1 Outcome: 19:11 Discharge ordered by . elizabeth 19:47 Discharged to home tw5 19:47 Condition: good 19:47 Discharge instructions given to patient, Instructed on discharge instructions, follow up and referral plans. Demonstrated understanding of instructions, follow-up care, medications, Prescriptions given X 1. 19:47 Patient left the ED. tw5 Signatures: John Robbins PA PA jmm Rivera, Mary mr Terry, Neha, RN RN eb1 Margy Finch tw5 Brianna Salguero RN RN jh6
--- NOTE | 2021-12-02 19:12 | EDPHYS ---
Physician Documentation [facility] Name: Felicity Anaya Age: 31 yrs Sex: Female : 1990 Arrival Date: 12/02/2021 Time: 15:58 Bed 23 Private MD: ED Physician Didier Phillips HPI: 12/02 16:37 This 31 yrs old Female presents to ER via Ambulatory with complaints of Flu jmm Symptoms. 16:37 Onset: The symptoms/episode began/occurred gradually, 1 day(s) ago. Modifying factors: jmm The symptoms are alleviated by nothing. the symptoms are aggravated by nothing. Associated signs and symptoms: Pertinent positives: sore throat. It is unknown whether or not the patient has had similar symptoms in the past. Historical: - Allergies: 16:33 No Known Allergies; 6 - Home Meds: 16:33 None [Active]; [facility] - PMHx: 16:33 Ovarian cyst; [facility] - PSHx: 16:33 Ovarian cyst removal; [facility] - Immunization history:: Adult Immunizations up to date, Client reports receiving the 2nd dose of the Covid vaccine. - Social history:: Smoking status: Patient denies any tobacco usage or history of. ROS: 16:37 Constitutional: Positive for body aches, chills. jmm 16:37 ENT: Positive for sore throat. 16:37 Respiratory: Negative for shortness of breath. 16:37 All other systems are negative. Exam: 16:37 Constitutional: This is a well developed, well nourished patient who is awake, alert, jmm and in no acute distress. Head/Face: atraumatic. Eyes: EOMI, no conjunctival erythema appreciated ENT: Moist Mucus Membranes Neck: Trachea midline, Supple Chest/axilla: Normal chest wall appearance and motion. Cardiovascular: Regular rate and rhythm. No edema appreciated Respiratory: Normal respirations, no respiratory distress appreciated Abdomen/GI: Non distended Back: Normal ROM MS/ Extremity: Moves all extremities, no obvious deformities appreciated, no edema noted to the lower extremities Neuro: Awake and alert Psych: Behavior is normal, Mood is normal, Patient is cooperative and pleasant Vital Signs: 16:30 BP 107 / 59; Pulse 108; Resp 18; Temp 101(O); Pulse Ox 98% ; Weight 86.18 kg; Height 5 jh6 ft. 2 in. (157.48 cm); Pain 9/10; 19:46 BP 112 / 68; Pulse 91; Resp 20; Temp 100.1; Pulse Ox 99% ; Pain 0/10; eb1 16:30 Body Mass Index 34.75 (86.18 kg, 157.48 cm) [facility] MDM: 18:44 Patient medically screened. [facility] 19:11 Data reviewed: vital signs, nurses notes. Counseling: I had a detailed discussion with [facility] the patient and/or guardian regarding: the historical points, exam findings, and any diagnostic results supporting the discharge/admit diagnosis, lab results, the need for outpatient follow up, to return to the emergency department if symptoms worsen or persist or if there are any questions or concerns that arise at home. 12/02 16:37 Order name: Flu; Complete Time: 18:06 [facility] 12/02 16:37 Order name: Strep; Complete Time: 18:06 [facility] 12/02 16:39 Order name: Influenza Screen (A ; Complete Time: 18:06 [facility] 12/02 16:39 Order name: SARS-COV-2 RT PCR (Document "Date of Onset" if Symptomatic) [facility] 12/02 17:30 Order name: Throat Culture; Complete Time: 09:42 EDMS Administered Medications: No medications were administered Disposition: 12/03 09:41 Co-signature as Attending Physician, Didier Phillips DO I was immediately available on-site ms3 in the Emergency Department for consultation in the care of the patient.. Disposition Summary: 12/02/21 19:11 Discharge Ordered Location: Home [facility] Condition: Stable [facility] Diagnosis - Coronavirus infection, unspecified [facility] Followup: [facility] - With: Private Physician - When: 2 - 3 days - Reason: Recheck today's complaints, Continuance of care, Re-evaluation by your physician Discharge Instructions: - Discharge Summary Sheet [facility] Forms: - Medication Reconciliation Form [facility] - Thank You Letter [facility] - Antibiotic Education [facility] - Prescription Opioid Use [facility] Prescriptions: - Paxlovid (EUA) 150 mg x 2- 100 mg Oral tablet - take 3 tablet by ORAL route 2 times per day for 5 days; 1 packet; Refills: 0, [facility] Product Selection Permitted Signatures: Dispatcher [employer] EDMS Mickail, TYRA Lopez Marcus, DO DO ms3 Brianna Salguero, RN RN jh6
[2021-12-02 20:04] VITALS: BP 112/68; TEMP 100.1; O2SAT 99
--- OUTSIDE RECORDS SUMMARY | 2021-12-03 15:35 | XMS REPORT | Continuity of Care Document ---
:1990 Author Organization [facility] t Address [address] [place] [address] Care Team Providers Name Role Phone Alyse Ceja Primary Care Physician [phone] VANAPHAN Attending Clinician Unavailable AKINYOAN C Attending Clinician Unavailable Akinsipe WHCNEdis C Attending Clinician Cullen Ceja Attending Clinician Ultrasound Attending Clinician Unavailable Payers Payer Name Policy Type Policy Number Effective Date Expiration Date S ource Problems Condition Condition Condition Status Onset Resolution Last Treating Co mments Source Name Details Category Date Date Treatment Clinician Date Well woman Well woman Disease Active 2020-05 U nivers exam exam 2- ity of 00:00: [place] [address] Medical Branch Ovarian Ovarian Disease Active 2020-05 Overview: Univ ers cyst cyst Formattin ity of 00:00: g of this [place] 00 note Medical might be Branch different from the original. Reports follow up 05/19/21 Lump or Lump or Disease Active Univers mass in mass in 6-17 ity of breast breast 00:00: [place] [address] Medical Branch Adhesions Adhesions Disease Active Uni vers involving involving 9-14 ity of left left 00:00: [place] fallopian fallopian [address] [place] [address] krys tube tube Branch Encounter Encounter Disease Active Uni vers for for 9-14 ity of surve[place]an surve[place]an [place] of ce of 00 Medical contracept contracept Br anch dong, dong, unspecifie unspecifie d d contracept contracept krish krish History of History of Disease Active U nivers tubal tubal 9-14 ity of ligation ligation 00:00: [address] Nexplanon Nexplanon Disease Active 2018-05 Uni vers insertion insertion 2-16 ity of 00:00: [address] BMI BMI Disease Active Univers 33.0-33.9, 33.0-33.9, 2-16 it y of adult adult 00:00: [address] History of History of Disease Active U nivers ovarian ovarian 6-26 ity of cyst cyst 00:00: [address] Allergies, Adverse Reactions, Alerts Allergy Allergy Status Severity Reaction(s) Onset Inactive Treating Comm ents Source Name Type Date Date Clinician NO KNOWN Drug Active Univers ALLERGIE Class ity of S [facility] Social History Social Habit Start Date Stop Date Quantity Comments Source Exposure to Not sure [facility] SARS-CoV-2 [facility] (event) [place] Alcohol intake 2021-05-19 2021-05-19 Ex-drinker [facility] 00:00:00 00:00:00 (finding) [facility] Tobacco use and 2011-03-29 2011-03-29 Smokeless tobacco Un iversity of exposure 00:00:00 00:00:00 non-user [facility] Sex Ass[birth year] At [birth year] Universit y of 00:00:00 00:00:00 [facility] Smoking Status Start Date Stop Date Source Never smoked tobacco [facility] Medications Ordered Filled Start Stop Current Ordering Indication Dosage Frequency Signature Comments Components Source Medication Medication Date Date Medication? Clinician (SIG) Name Name fluconazole 2021- No [id number] 150mg Take 1 Univers (DIFLUCAN) 05-26 tablet by ity of 150 mg 00:00[place] 05:59 [place] tablet [place]00 now for 1 Medical dose. Branch norgestimat Yes [id number] 1{tbl} Take 1 Univers e-ethinyl 1-04 tablet by ity o f estradioL 00:00: mouth [place] 0.25-35 00 daily. Medical mg-mcg per Branch tablet norgestimat Yes [id number] 1{tbl} Take 1 Univers e-ethinyl 1-04 tablet by ity o f estradioL 00:00: mouth [place] 0.25-35 00 daily. Medical mg-mcg per Branch tablet Immunizations Ordered Immunization Filled Immunization Date Status Commen ts Source Name Name SARS-COV-2 COVID-19 2021-05-19 Completed Unive rsity of MODERNA BOOSTER 00:00:00 [place] Med ical VACCINE Branch SARS-COV-2 COVID-19 2021-05-19 Completed Unive rsity of MODERNA 0.25ML 00:00:00 [place] Medi krys BOOSTER VACCINE Branch SARS-COV-2 COVID-19 2020-09-26 Completed Unive rsity of MODERNA VACCINE 00:00:00 [place] Med ical Branch SARS-COV-2 COVID-19 2020-09-26 Completed Unive rsity of MODERNA VACCINE 00:00:00 [facility] Branch SARS-COV-2 COVID-19 2020-08-29 Completed Unive rsity of MODERNA VACCINE 00:00:00 [facility] Branch SARS-COV-2 COVID-19 2020-08-29 Completed Unive rsity of MODERNA VACCINE 00:00:00 [facility] Branch HPV9 2020-01-28 Completed University of 00:00:00 [facility] HPV9 2020-01-28 Completed University of 00:00:00 [facility] HPV9 2019-12-18 Completed University of 00:00:00 [facility] HPV9 2019-12-18 Completed University of 00:00:00 [facility] TDAP 2019-10-10 Completed University of 00:00:00 [facility] TDAP 2019-10-10 Completed University of 00:00:00 [facility] Influenza Virus 2019-04-30 Completed Universit y of Vaccine Quad .5 mL 00:00:00 [place] Medical IM 6+ MO Branch Influenza Virus 2019-04-30 Completed Universit y of Vaccine Quad .5 mL 00:00:00 [place] Medical IM 6+ MO Branch Influenza Virus 2018-04-18 Completed Universit y of Vaccine Quad .5 mL 00:00:00 [place] Medical IM 6+ MO Branch TDAP 2018-04-18 Completed University of 00:00:00 [facility] Influenza Virus 2018-04-18 Completed Universit y of Vaccine Quad .5 mL 00:00:00 [place] Medical IM 6+ MO Branch TDAP 2018-04-18 Completed University of 00:00:00 [facility] Influenza Virus 2014-10-23 Completed Universit y of Vaccine Quad IM 3+ 00:00:00 [facility] Influenza Virus 2014-10-23 Completed Universit y of Vaccine Quad IM 3+ 00:00:00 [facility] TDAP 2012-05-16 Completed University 00:00:00 [facility] TDAP 2012-05-16 Completed University 00:00:00 [facility] HEPATITIS A 2006-03-17 Completed University 00:00:00 [facility] Meningococcal 2006-03-17 Completed University of Vaccine 00:00:00 [facility] Procedures This patient has no known procedures. Encounters Start End Encounter Admission Attending Care Care Encounter Source Date/Time Date/Time Type Type Clinicians Facility Department ID 2022-05-19 2022-05-19 Outpatient Cullen IRBY [facility] [id number] Univers 08:30:00 08:30:00 TATE [id number] [facility] 2021-12-09 2021-12-09 Outpatient R AURELIA [facility] [id number] Univers 14:30:00 14:30:00 GLORIA [id number] ity o [facility] 2021-12-01 2021-12-01 [facility] [id number] Univers 00:00:00 00:00:00 Gloria Andre HEATER FURNACE [id number] [facility] [id number] Andrea as MATERNAL [id number] Med ical & CHILD [address] [place] [address] 2021-09-02 2021-09-02 Outpatient R AURELIA [facility] [id number]-[id number] Univers 10:30:00 10:30:00 GLORIA [id number] ity o [facility] 2021-09-02 2021-09-02 [facility] [id number] Univers 10:30:00 10:30:00 GLORIA ity o [facility] 2021-05-26 2021-05-26 [facility] [id number] Univers 00:00:00 00:00:00 Gloria C HEATER [place]URNACE [id number] ity of REGIONAL [id number] Andrea as MATERNAL [id number] Med ical & CHILD 107 [facility] 2019-09-20 2019-09-20 Routine JIN Stuart [id number] 13:08:49 13:17:04 Roshunda R HEATER FURNACE [id number] Visit REGIONAL [id number] MATERNAL [id number] & CHILD 107 [facility] 2019-09-12 2019-09-12 Telephone Narciso VAEVERARDO [id number] 00:00:00 00:00:00 Roshunda R HEATER [place]URNA[place] [id number] REGIONAL [id number] MATERNAL [id number] & CHILD 107 [facility] 2019-09-04 2019-09-04 Telephone Narciso [facility] [id number] 00:00:00 00:00:00 Roshunda R HEATER [place]NACE [id number] REGIONAL [id number] MATERNAL [id number] & CHILD 107 [facility] 2019-08-08 2019-08-08 Abstract Narciso VAEVERARDO [id number] 00:00:00 00:00:00 Roshunda R HEATER [place] [id number] REGIONAL [id number] MATERNAL [id number] & CHILD 107 [facility] 2019-08-07 2019-08-07 Medical Records Field Technician Ultrasound, [facility] [id number] 10:33:10 16:33:02 Visit [facility] HE[place] [id number] REGIONAL [id number] MATERNAL [id number] & CHILD 369 [facility] Results This patient has no known results.
== END 2021-12-02 19:47 | disposition home or self-care (01) ==
LOC: ER 15:56
DX: U07.1 COVID-19 (principal)
CPT/HCPCS: 87070; 87081; 87804 ×2; U0003

== ENCOUNTER 2022-04-20 08:32 | Emergency (ER) | payer OTHER ==
--- OUTSIDE RECORDS SUMMARY | 2022-04-20 08:41 | XMS REPORT | Continuity of Care Document ---
:1990 Author Organization [facility] t Address [address] [place] [address] Dr. Keller. [address] [place] [address] Care Team Providers Name Role Phone Alyse Ceja Primary Care Physician [phone] GRISEL DUDLEY Attending Clinician Unavailable GLORIA ARMSTRONG Attending Clinician Unavailable Gloria Pereyra Attending Clinician [phone] YAN MONCADA Attending Clinician Unavailable Nurse, Adc Pob Immunization Attending Clinician Unavailable Yan Moncada DO Attending Clinician Grisel Dudley PA-C Attending Clinician Doctor Unassigned, [place] Attending Clinician Unavailable GODWIN LUTZ Attending Clinician Unavailable ALYSE NEWTON Attending Clinician Unavailable Alyse Ceja Attending Clinician Ultrasound, Ang-Mfm Attending Clinician Unavailable Payers Payer Name Policy Type Policy Number Effective Date Expiration Date [facility] [id number] 2019 CHOICE MEDICAID 00:00:00 Problems Condition Condition Condition Status Onset Resolution Last Treating Co mments Source Name Details Category Date Date Treatment Clinician Date Well woman Well woman Disease Active 2020-05 U nivers exam exam ity of 00:00: [place] 00 Medical Branch Ovarian Ovarian Disease Active 2020-05 Overview: Univ ers cyst cyst Formattin ity of 00:00: g of this note Medical might be Branch different from the original. Reports follow up 1/4/22 Lump or Lump or Disease Active Univers mass in mass in 6-17 ity of breast breast 00:00: [place] [address] Medical Branch Adhesions Adhesions Disease Active Uni vers involving involving 9-14 ity of left left 00:00: [place] fallopian fallopian [address] [place] [address] krys tube tube Branch Encounter Encounter Disease Active Uni vers for for 9-14 ity of surve[place] of Medical contracept contracept Br anch dong, dong, unspecifie unspecifie d d contracept contracept krish krish History of History of Disease Active U nivers tubal tubal 9-14 ity of ligation ligation 00:00: [address] Branch Nexplanon Nexplanon Disease Active 2018-05 Uni vers insertion insertion 2-16 ity of 00:00: [address] BMI BMI Disease Active Univers 33.0-33.9, 33.0-33.9, 2-16 it y of adult adult 00:00: [address] History of History of Disease Active U nivers ovarian ovarian 6-26 ity of cyst cyst 00:00: [address] Allergies, Adverse Reactions, Alerts Allergy Allergy Status Severity Reaction(s) Onset Inactive Treating Comm ents Source Name Type Date Date Clinician NO KNOWN Drug Active Univers ALLERGIE Class ity of S [facility] Social History Social Habit Start Date Stop Date Quantity Comments Source Exposure to Not sure [facility] SARS-CoV-2 [facility] (event) [place] Alcohol intake 2021-05-19 2021-05-19 Ex-drinker [facility] 00:00:00 00:00:00 (finding) [facility] Tobacco use and 2011-03-29 2011-03-29 Smokeless tobacco Un iversity of exposure 00:00:00 00:00:00 non-user [facility] Sex Ass[birth year] At [birth year] Universit y of 00:00:00 00:00:00 [facility] Smoking Status Start Date Stop Date Source Never smoked tobacco [facility] Medications Ordered Filled Start Stop Current Ordering Indication Dosage Frequency Signature Comments Components Source Medication Medication Date Date Medication? Clinician (SIG) Name Name fluconazole 2021- No [id number] 150mg Take 1 Univers (DIFLUCAN) 05-2612 tablet by ity of 150 mg 00:00: 05:59 [place] tablet [place] :00 now for 1 Medical dose. Branch norgestimat Yes [id number] 1{tbl} Take 1 Univers e-ethinyl 1-04 tablet by ity o f estradioL 00:00: mouth [place] 0.25-35 00 daily. Medical mg-mcg per Branch tablet norgestimat Yes [id number] 1{tbl} Take 1 Univers e-ethinyl 1-04 tablet by ity o f estradioL 00:00: mouth [place] 0.25-35 00 daily. Medical mg-mcg per Branch tablet norgestimat Yes [id number] 1{tbl} Take 1 Univers e-ethinyl 1-04 tablet by ity o f estradioL 00:00: mouth [place] 0.25-35 00 daily. Medical mg-mcg per Branch tablet Immunizations Ordered Immunization Filled Immunization Date Status Commen ts Source Name Name SARS-COV-2 COVID-19 2021-05-19 Completed Unive rsity of MODERNA BOOSTER 00:00:00 [place] Med ical VACCINE Branch SARS-COV-2 COVID-19 2021-05-19 Completed Unive rsity of MODERNA 0.25ML 00:00:00 [place] Medi krys BOOSTER VACCINE Branch SARS-COV-2 COVID-19 2021-05-19 Completed Unive rsity of MODERNA 0.25ML 00:00:00 [place] Medi krys BOOSTER VACCINE Branch SARS-COV-2 COVID-19 2020-09-26 Completed Unive rsity of MODERNA VACCINE 00:00:00 [place] Med ical Branch SARS-COV-2 COVID-19 2020-09-26 Completed Unive rsity of MODERNA VACCINE 00:00:00 [place] Med ical Branch SARS-COV-2 COVID-19 2020-09-26 Completed Unive rsity of MODERNA 12+ YRS 00:00:00 [place] Med ical VACCINE Branch SARS-COV-2 COVID-19 2020-08-29 Completed Unive rsity of MODERNA VACCINE 00:00:00 [facility] ical Branch SARS-COV-2 COVID-19 2020-08-29 Completed Unive rsity of MODERNA VACCINE 00:00:00 [facility] ical Branch SARS-COV-2 COVID-19 2020-08-29 Completed Unive rsity of MODERNA 12+ YRS 00:00:00 [facility] [place] VACCINE Branch HPV9 2020-01-28 Completed University of 00:00:00 [place] [facility] HPV9 2020-01-28 Completed University of 00:00:00 [place] [facility] HPV9 2020-01-28 Completed University of 00:00:00 [place] [facility] HPV9 2019-12-18 Completed University of 00:00:00 [place] [facility] HPV9 2019-12-18 Completed University of 00:00:00 [place] [facility] HPV9 2019-12-18 Completed University of 00:00:00 [facility] Branch TDAP 2019-10-10 Completed University of 00:00:00 [facility] TDAP 2019-10-10 Completed University of 00:00:00 [facility] TDAP 2019-10-10 Completed University of 00:00:00 [facility] Influenza Virus 2019-04-30 Completed Universit y of Vaccine Quad .5 mL 00:00:00 [place] Medical IM 6+ MO Branch Influenza Virus 2019-04-30 Completed Universit y of Vaccine Quad .5 mL 00:00:00 [place] Medical IM 6+ MO Branch Influenza Virus 2019-04-30 Completed Universit y of Vaccine Quad .5 mL 00:00:00 [place] Medical IM 6+ MO Branch Influenza Virus 2018-04-18 Completed Universit y of Vaccine Quad .5 mL 00:00:00 [place] Medical IM 6+ MO Branch TDAP 2018-04-18 Completed University of 00:00:00 [facility] Influenza Virus 2018-04-18 Completed Universit y of Vaccine Quad .5 mL 00:00:00 [place] Medical IM 6+ MO Branch TDAP 2018-04-18 Completed University of 00:00:00 [facility] Influenza Virus 2018-04-18 Completed Universit y of Vaccine Quad .5 mL 00:00:00 [place] Medical IM 6+ MO Branch TDAP 2018-04-18 Completed University of 00:00:00 [facility] Influenza Virus 2014-10-23 Completed Universit y of Vaccine Quad IM 3+ 00:00:00 [facility] Influenza Virus 2014-10-23 Completed Universit y of Vaccine Quad IM 3+ 00:00:00 [facility] Influenza Virus 2014-10-23 Completed Universit y of Vaccine Quad IM 3+ 00:00:00 [facility] TDAP 2012-05-16 Completed University 00:00:00 [facility] TDAP 2012-05-16 Completed University 00:00:00 [facility] TDAP 2012-05-16 Completed University 00:00:00 [facility] HEPATITIS A 2006-03-17 Completed University 00:00:00 [facility] Meningococcal 2006-03-17 Completed [facility] Vaccine 00:00:00 [facility] Procedures This patient has no known procedures. Encounters Start End Encounter Admission Attending Care Care Encounter Source Date/Time Date/Time Type Type Clinicians Facility Department ID 2021-03-13 Outpatient [facility] [id number] Univers 10:16:02 ity [facility] 2022-05-04 2022-05-04 [facility] [id number] Univers 13:00:00 13:00:00 GLORIA jacobo [facility] 2022-03-31 2022-03-31 Telephone [facility] [id number] Univers 00:00:00 00:00:00 Gloria Andre DETAIL TECHNICIAN [id number] [facility] [id number] Andrea as MATERNAL [phone] [facility] & CHILD [address] [place] [address] 2021-12-09 2021-12-09 [facility] [id number] Univers 14:30:00 14:30:00 GLORIA jacobo [facility] 2021-12-01 2021-12-01 Telephone [employer] [facility] [id number] Univers 00:00:00 00:00:00 Gloria Andre DETAIL TECHNICIAN [id number] [facility] [id number] Andrea as MATERNAL [phone] [facility] & [address] 2021-09-02 2021-09-02 Outpatient [facility] [id number] Univers 10:30:00 10:30:00 GLORIA jacobo [facility] 2021-05-26 2021-05-26 Telephone AkinWarren, [facility] [id number] Univers 00:00:00 00:00:00 Gloria Andre DETAIL TECHNICIAN [id number] ity of [facility] [id number] Andrea as MATERNAL [phone] Med ical & CHILD [address] [place] [address] 2021-05-19 2021-05-19 Outpatient R JEANNINE [facility] [id number] Univers 16:10:00 16:10:00 YAN sung [facility] 2021-05-19 2021-05-19 Imm/Inj Nurse, Adc Pob Immunization [facility] [id number] Univers 16:10:00 16:10:00 Visit Yan Moncada [id number] ity [id number] [id number] Nh dical [facility] [address] [facility] 2021-05-19 2021-05-19 Outpatient R MAHAMED [facility] [id number] Univers 15:30:00 15:48:32 GRISEL ana lilia [facility] 2021-05-19 2021-05-19 [facility] [id number] Univers 15:30:00 15:48:32 Visit Grisel SOLIS [id number] i ty [id number] [id number] Nh dical NAL [address] [place] [address] 2021-05-19 2021-05-19 Letter Mahamed [facility] [id number] Univers 00:00:00 00:00:00 (Out) Griseltom SOLIS [id number] i ty [id number] [id number] Nh dical NAL [address] [facility] 2021-05-19 2021-05-19 Orders Doctor MONTERO [id number] Univers 00:00:00 00:00:00 Only Unassigned, [place] [id number] ity of [place] [facility] [id number] Andrea as [id number] [address] 2021-05-13 2021-05-13 Outpatient R AKINSIPE, [facility] [id number] Univers 15:15:00 16:04:40 GLORIA jacobo [facility] 2021-05-13 2021-05-13 Office [facility] [id number] Univers 15:15:00 16:04:40 Visit Gloria Andre DETAIL TECHNICIAN [id number] [facility] [id number] Andrea as MATERNAL [phone] [facility] ical & CHILD [address] [place] [address] 2021-05-13 2021-05-13 Outpatient R EBJAMEY, [facility] [id number] Univers 15:15:00 16:04:40 GLORIA sung o [facility] 2020-12-24 2020-12-24 Outpatient R AURELIA, [facility] [id number] Univers 09:30:00 09:30:00 GLORIA sung o [facility] 2020-11-26 2020-11-26 Outpatient R AKINSIPE, [facility] [id number] Univers 09:00:00 09:00:00 GLORIA sung o [facility] 2020-10-30 2020-10-30 Outpatient R EBPE, [facility] [id number] Univers 08:15:00 08:15:00 GLORIA suearuna o [facility] 2020-10-24 2020-10-24 [facility] [id number] Univers 08:15:00 08:15:00 GODWIN [facility] 2020-07-15 2020-07-15 Outpatient R [facility] [id number] Univers 09:00:00 09:00:00 [facility] 2020-07-03 2020-07-03 Outpatient R [facility] [id number] Univers 10:30:00 10:30:00 [facility] 2020-06-30 2020-06-30 Outpatient R [facility] [id number] Univers 09:30:00 09:30:00 [facility] 2020-05-29 2020-05-29 Outpatient R AMAN, [facility] [id number] Univers 10:45:00 10:45:00 ROSALEXANDRANDA ity o f [facility] 2020-02-11 2020-02-11 Outpatient R AMAN, [facility] [id number] Univers 09:45:00 09:45:00 ROSALEXANDRANDA ity o f [facility] 2020-01-28 2020-01-28 Outpatient R AMAN, [facility] [id number] Univers 15:00:00 15:00:00 YINGNDA ity o f [facility] 2020-01-28 2020-01-28 Outpatient R AMAN [facility] [id number] Univers 13:15:00 13:15:00 ROSALEXANDRANDA ity o f [facility] 2020-01-07 2020-01-07 Outpatient R AMAN, [facility] [id number] Univers 11:00:00 11:00:00 YINGNDA ity o f [facility] 2019-12-18 2019-12-18 Outpatient R AMAN, [facility] [id number] Univers 11:00:00 11:00:00 YINGNDA ity o f [facility] 2019-12-11 2019-12-11 Outpatient R AMAN, [facility] [id number] Univers 12:45:00 12:45:00 YINGNDA ity o f [facility] 2019-12-05 2019-12-05 Outpatient R NEWTON, [facility] [id number] Univers 07:45:00 07:45:00 YINGNDA ity o f [facility] 2019-12-04 2019-12-04 Outpatient R NEWTON, [facility] [id number] Univers 11:00:00 11:00:00 ROSALEXANDRANDA ity o f [facility] 2019-11-21 2019-11-21 Outpatient R NEWTON, [facility] [id number] Univers 15:00:00 15:00:00 ROSALEXANDRANDA ity o f [facility] 2019-11-07 2019-11-07 Outpatient R NEWTON, [facility] [id number] Univers 15:45:00 15:45:00 ROSALEXANDRANDA ity o f [facility] 2019-11-06 2019-11-06 Outpatient R [facility] [id number] Univers 10:00:00 10:00:00 [facility] 2019-10-24 2019-10-24 Outpatient R AMAN [facility] [id number] Univers 14:30:00 14:30:00 ALYSE sung o f [facility] 2019-10-11 2019-10-11 Outpatient R [facility] [id number] Univers 08:30:00 08:30:00 [facility] 2019-10-10 2019-10-10 Outpatient R AMAN [facility] [id number] Univers 11:00:00 11:00:00 TAMEKAA ana lilia o jose elias [facility] 2019-10-09 2019-10-09 Outpatient P [facility] [id number] Univers 10:00:00 10:00:00 [facility] 2019-10-03 2019-10-03 Outpatient R AMAN [facility] [id number] Univers 15:00:00 15:00:00 ALYSE sung o jose elias [facility] 2019-10-01 2019-10-01 Outpatient R AMAN [facility] [id number] Univers 09:15:00 09:15:00 TAMEKAA ana lilia o jose elias [facility] 2019-09-20 2019-09-20 Routine [facility] [id number] 13:08:49 13:17:04 Rosalexandranda R DETAIL TECHNICIAN [id number] Visit REGIONAL [id number] MATERNAL [id number] & CHILD [address] [facility] 2019-09-20 2019-09-20 Outpatient R AMAN [facility] [id number] Univers 13:00:00 13:00:00 YINGNDA suey o f [facility] 2019-09-12 2019-09-12 Telephone [facility] [id number] 00:00:00 00:00:00 Rosalexandranda R DETAIL TECHNICIAN [id number] REGIONAL [id number] MATERNAL [id number] & CHILD 107 [facility] 2019-09-04 2019-09-04 Outpatient R AMAN [facility] [id number] Univers 10:00:00 10:00:00 ROSALEXANDRANDA ity o f [facility] 2019-09-04 2019-09-04 Telephone Aman GAEVER[facility]O [id number] 00:00:00 00:00:00 Rosalexandranda R DETAIL TECHNICIAN [id number] REGIONAL [id number] MATERNAL [id number] & CHILD 107 [facility] 2019-08-08 2019-08-08 Abstract Aman [facility] [id number] 00:00:00 00:00:00 Rosalexandranda R DETAIL TECHNICIAN [id number] REGIONAL [id number] MATERNAL [id number] & CHILD 107 [facility] 2019-08-07 2019-08-07 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 Ultrasound, [facility] [id number] 10:33:10 16:33:02 Visit [employer] [facility] [employer] [facility] DETAIL TECHNICIAN [id number] REGIONAL [id number] MATERNAL [id number] & CHILD 369 [facility] 2019-08-07 2019-08-07 Outpatient R NEWTON [facility] [id number] Univers 13:45:00 13:45:00 TAMEKAA ity o f [facility] 2019-08-07 2019-08-07 Outpatient P [facility] [id number] Univers 10:30:00 10:30:00 ity of [facility] 2019-07-09 2019-07-09 Outpatient R NEWTON [facility] [id number] Univers 11:00:00 11:00:00 TAMEKAA ity o f [facility] Results This patient has no known results.
[2022-04-20] MEDS ORDERED: PANTOPRAZOLE 40 MG INJ ONE (08:58)
[2022-04-20] MEDS ORDERED: KETOROLAC 30 MG/ML INJ ONE (08:58)
[2022-04-20] MEDS ORDERED: NA CHLORIDE 0.9% 1,000 ML ONE (08:58)
[2022-04-20 09:17] LABS: Absolute Lymphocytes (CBC) 1.6 K/uL (0.7-4.9); Hematocrit 37.6 % (36.0-45.0); Lymphocytes % 14.4 % (15.3-44.8); MCV 85.5 fL (80-100); MPV 7.9 fL (7.6-11.3)
[2022-04-20 10:52] LABS: Potassium 4.1 mmol/L (3.5-5.1)
[2022-04-20 10:55] LABS: Bilirubin Total 0.1 mg/dL (0.2-1.0); Protein, Total 6.7 g/dL (6.4-8.2)
--- NOTE | 2022-04-20 11:28 | RAD REPORT ---
EXAM DESCRIPTION: CTAbdomen Pelvis W Contrast - 04/20/2022 11:12 am CLINICAL HISTORY: Abdominal pain. Abdominal pain, acute, nonlocalized COMPARISON: Abdomen Pelvis W Contrast dated 04/25/2021; Abdomen Pelvis W Contrast dated ; Abdomen Pelvis W Contrast dated 01/04/2017; CT ABD PELVIS W CONTRAST dated 10/21/2014 TECHNIQUE: Biphasic CT imaging of the abdomen and pelvis was performed with 100 ml non-ionic IV cont rast. All CT scans are performed using dose optimization technique as appropriate and may include automated exposure control or mA/KV adjustment according to patient size. FINDINGS: The lung bases are clear. The liver, spleen, pancreas, adrenal glands and kidneys are within normal limits. No bowel obstruction, free air, free fluid or abscess. The appendix is normal. No evidence of signi ficant lymphadenopathy. No suspicious bony findings. IMPRESSION: No acute intra-abdominal or pelvic finding.
[2022-04-20] MEDS ORDERED: ONDANSETRON 4 MG/2 ML VIAL ONE (12:10)
--- NOTE | 2022-04-20 12:55 | ER ---
Nurse's Notes [facility] Name: Felicity Anaya Age: 32 yrs Sex: Female : 1990 Arrival Date: 04/20/2022 Time: 08:33 Bed 6 Private MD: Diagnosis: Upper abdominal pain, unspecified;Nausea with vomiting, unspecified Presentation: 04/20 08:44 Chief complaint: Patient states: I have had abdominal pain x3 days but this morning its jh5 way worse. i havent been eating much since but I guess it does get worse after i try to eat. Coronavirus screen: Vaccine status: Patient reports receiving the 2nd dose of the covid vaccine. Client denies travel out of the [place] in the last 14 days. Ebola Screen: Patient negative for fever greater than or equal to 101.5 degrees Fahrenheit, and additional compatible Ebola Virus Disease symptoms Patient denies exposure to infectious person. Patient denies travel to an Ebola-affected area in the 21 days before illness onset. Initial Sepsis Screen: Does the patient meet any 2 criteria? No. Patient's initial sepsis screen is negative. Does the patient have a suspected source of infection? No. Patient's initial sepsis screen is negative. Risk Assessment: Do you want to hurt yourself or someone else? Patient reports no desire to harm self or others. Onset of symptoms was April 17, 2022. 08:44 Method Of Arrival: Ambulatory [facility] 08:44 Acuity: MARCOS 3 jh5 Triage Assessment: 08:48 General: Appears in no apparent distress. Behavior is calm, cooperative, appropriate [facility] for age. Pain: Complains of pain in abdomen. GI: Reports lower abdominal pain, upper abdominal pain, nausea. 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 - Social history:: Smoking status: Patient/guardian denies using tobacco. Screenin:00 Abuse screen: Denies threats or abuse. Denies injuries from another. Nutritional bp screening: No deficits noted. Tuberculosis screening: No symptoms or risk factors identified. Fall Risk None identified. Assessment: 09:00 General: SEE TRIAGE NOTE. bp 10:00 Reassessment: No changes from previously documented assessment. Patient and/or family bp updated on plan of care and expected duration. Pain level reassessed. Vital Signs: 08:44 BP 128 / 79; Pulse 86; Resp 16; Temp 98.4; Pulse Ox 100% ; Weight 88.45 kg; Height 5 [facility] ft. 2 in. (157.48 cm); Pain 6/10; 09:29 BP 107 / 65; Pulse 88; Pulse Ox 99% on R/A; ap3 10:36 BP 109 / 68; Pulse 87; Resp 16; Pulse Ox 99% ; bp 11:36 BP 121 / 80; Pulse 106; Pulse Ox 100% on R/A; ap3 11:50 Temp 99.6(O); ap3 12:19 BP 121 / 80; Pulse 97; Pulse Ox 100% on R/A; ap3 08:44 Body Mass Index 35.67 (88.45 kg, 157.48 cm) [facility] ED Course: 08:33 Patient arrived in ED. am2 08:35 Antoinette Fuentes FNP-C is PHCP. snw 08:35 Marshall Rothman MD is Attending Physician. snw 08:42 Sherman Starr, ALFREDO is Primary Nurse. bp 08:48 Triage completed. [facility] 08:48 Arm band placed on right wrist. [facility] 09:00 Patient has correct armband on for positive identification. Bed in low position. Call bp light in reach. Side rails up X2. Adult w/ patient. 09:00 Inserted saline lock: 20 gauge in right antecubital area, using aseptic technique. bp Blood collected. 10:05 Antoinette Fuentes FNP-C is PHCP. snw 11:13 CT Abd/Pelvis - IV Contrast Only In Process Unspecified. EDMS 13:24 No provider procedures requiring assistance completed. IV discontinued, intact, em6 bleeding controlled, No redness/swelling at site. Pressure dressing applied. Administered Medications: 09:00 Drug: NS 0.9% 1000 ml Route: IV; Rate: 1 bolus; Site: right antecubital; bp 09:00 Drug: Ketorolac 30 mg Route: IVP; Site: right antecubital; bp 09:45 Follow up: Response: Pain is decreased ap3 09:00 Drug: ProTONIX (pantoprazole) 40 mg Route: IVP; Site: right antecubital; bp 10:57 Follow up: Response: No adverse reaction ap3 12:14 Drug: Zofran (Ondansetron) 4 mg Route: IVP; Site: left antecubital; ap3 13:00 Follow up: Response: No adverse reaction em6 12:26 Not Given (Other Intervention Used): fentaNYL (PF) 25 mcg IVP once ap3 Medication: 11:38 VIS not applicable for this client. ap3 Outcome: 12:54 Discharge ordered by . william 13:25 Discharged to home via wheelchair, with family. em6 13:25 Condition: stable 13:25 Condition: stable 13:25 Discharge instructions given to patient, family, Instructed on discharge instructions, follow up and referral plans. medication usage, Demonstrated understanding of instructions, follow-up care, medications, Prescriptions given X 2. 13:25 Patient left the ED. em6 Signatures: Dispatcher [employer] EDMS Antoinette Fuentes, CRIMINAL LEGAL ASSISTANT-C CRIMINAL LEGAL ASSISTANT-Csnw Lakshmi Pedro Brian, RN RN bp Lakshmi Sanchez RN RN ap3 Fabby Post, RN RN jh5 Jaki Nelson RN RN em6
--- NOTE | 2022-04-20 12:55 | EDPHYS ---
Physician Documentation [facility] Name: Felicity Anaya Age: 32 yrs Sex: Female : 1990 Arrival Date: 04/20/2022 Time: 08:33 Bed 6 Private MD: ED Physician Marshall Rothman HPI: 04/20 08:49 This 32 yrs old Female presents to ER via Ambulatory with complaints of snw Abdominal Pain, Nausea. 08:49 The patient presents with abdominal pain in the epigastric area. Onset: The snw symptoms/episode began/occurred suddenly, 3 day(s) ago, and became worse this morning. The symptoms do not radiate. Associated signs and symptoms: none. The symptoms are described as constant, vague. Modifying factors: The symptoms are alleviated by nothing, the symptoms are aggravated by movement, pressure. Severity of pain: At its worst the pain was moderate. The patient has experienced similar episodes in the past. The patient has not recently seen a physician. 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 - Social history:: Smoking status: Patient/guardian denies using tobacco. ROS: 08:49 Constitutional: Negative for fever, chills, and weight loss, Eyes: Negative for injury, snw pain, redness, and discharge, ENT: Negative for injury, pain, and discharge, Neck: Negative for injury, pain, and swelling, Cardiovascular: Negative for chest pain, palpitations, and edema, Respiratory: Negative for shortness of breath, cough, wheezing, and pleuritic chest pain, Back: Negative for injury and pain, : Negative for injury, bleeding, discharge, and swelling, MS/Extremity: Negative for injury and deformity, Skin: Negative for injury, rash, and discoloration, Neuro: Negative for headache, weakness, numbness, tingling, and seizure. 08:49 Abdomen/GI: Positive for abdominal pain, of the epigastric area. Exam: 08:48 Constitutional: This is a well developed, well nourished patient who is awake, alert, snw and in no acute distress. Head/Face: Normocephalic, atraumatic. Eyes: Pupils equal round and reactive to light, extra-ocular motions intact. Lids and lashes normal. Conjunctiva and sclera are non-icteric and not injected. Cornea within normal limits. Periorbital areas with no swelling, redness, or edema. ENT: Nares patent. No nasal discharge, no septal abnormalities noted. Tympanic membranes are normal and external auditory canals are clear. Oropharynx with no redness, swelling, or masses, exudates, or evidence of obstruction, uvula midline. Mucous membranes moist. Neck: Trachea midline, no thyromegaly or masses palpated, and no cervical lymphadenopathy. Supple, full range of motion without nuchal rigidity, or vertebral point tenderness. No Meningismus. Chest/axilla: Normal chest wall appearance and motion. Nontender with no deformity. No lesions are appreciated. Cardiovascular: Regular rate and rhythm with a normal S1 and S2. No gallops, murmurs, or rubs. Normal PMI, no JVD. No pulse deficits. Respiratory: Lungs have equal breath sounds bilaterally, clear to auscultation and percussion. No rales, rhonchi or wheezes noted. No increased work of breathing, no retractions or nasal flaring. Back: No spinal tenderness. No costovertebral tenderness. Full range of motion. Skin: Warm, dry with normal turgor. Normal color with no rashes, no lesions, and no evidence of cellulitis. MS/ Extremity: Pulses equal, no cyanosis. Neurovascular intact. Full, normal range of motion. Neuro: Awake and alert, GCS 15, oriented to person, place, time, and situation. Cranial nerves II-XII grossly intact. Motor strength 5/5 in all extremities. Sensory grossly intact. Cerebellar exam normal. Normal gait. Psych: Awake, alert, with orientation to person, place and time. Behavior, mood, and affect are within normal limits. 08:48 Abdomen/GI: Inspection: abdomen appears normal, Bowel sounds: normal, Palpation: moderate abdominal tenderness, in all quadrants. Vital Signs: 08:44 BP 128 / 79; Pulse 86; Resp 16; Temp 98.4; Pulse Ox 100% ; Weight 88.45 kg; Height 5 jh5 ft. 2 in. (157.48 cm); Pain 6/10; 09:29 BP 107 / 65; Pulse 88; Pulse Ox 99% on R/A; ap3 10:36 BP 109 / 68; Pulse 87; Resp 16; Pulse Ox 99% ; bp 11:36 BP 121 / 80; Pulse 106; Pulse Ox 100% on R/A; ap3 11:50 Temp 99.6(O); ap3 12:19 BP 121 / 80; Pulse 97; Pulse Ox 100% on R/A; ap3 08:44 Body Mass Index 35.67 (88.45 kg, 157.48 cm) [facility] MDM: 08:36 Patient medically screened. snw 12:55 Data reviewed: vital signs, nurses notes. Data interpreted: Pulse oximetry: on room air snw is 100 %. Interpretation: normal. Counseling: I had a detailed discussion with the patient and/or guardian regarding: the historical points, exam findings, and any diagnostic results supporting the discharge/admit diagnosis, lab results, radiology results, the need for outpatient follow up, to return to the emergency department if symptoms worsen or persist or if there are any questions or concerns that arise at home. Special discussion: Based on the patient's Hx, exam, and Dx evaluation, there is no indication for emergent surgery or inpatient Tx. It is understood by the patient/guardian that if the Sx's persist or worsen they need to return immediately for re-evaluation. Based on the history and exam findings, there is no indication for further emergent testing or inpatient evaluation. I discussed with the patient/guardian the need to see the primary care provider for further evaluation of the symptoms. 04/20 08:45 Order name: CBC with Diff; Complete Time: 09:19 snw 04/20 08:45 Order name: CMP; Complete Time: 10:56 snw 04/20 08:45 Order name: Lipase; Complete Time: 10:56 snw 04/20 08:45 Order name: Test, Serum; Complete Time: 10:49 snw 04/20 08:45 Order name: CT Abd/Pelvis - IV Contrast Only; Complete Time: 11:40 snw 04/20 11:41 Order name: Flu; Complete Time: 12:53 snw 04/20 08:45 Order name: IV Saline Lock; Complete Time: 09:02 snw 04/20 08:45 Order name: Labs collected and sent; Complete Time: 09:02 snw 04/20 09:18 Order name: Misc. Order: recollect requested for Chem and preg; Complete Time: 09:53 snw 04/20 09:37 Order name: Labs - recollect needed: recollect red and green top.; Complete Time: 10:05 bd Administered Medications: 09:00 Drug: NS 0.9% 1000 ml Route: IV; Rate: 1 bolus; Site: right antecubital; bp 09:00 Drug: Ketorolac 30 mg Route: IVP; Site: right antecubital; bp 09:45 Follow up: Response: Pain is decreased ap3 09:00 Drug: ProTONIX (pantoprazole) 40 mg Route: IVP; Site: right antecubital; bp 10:57 Follow up: Response: No adverse reaction ap3 12:14 Drug: Zofran (Ondansetron) 4 mg Route: IVP; Site: left antecubital; ap3 13:00 Follow up: Response: No adverse reaction em6 12:26 Not Given (Other Intervention Used): fentaNYL (PF) 25 mcg IVP once ap3 Disposition: 18:44 Co-signature as Attending Physician, Marshall Rothman MD I agree with the assessment and kdr plan of care. Disposition Summary: 04/20/22 12:54 Discharge Ordered Location: Home snw Condition: Stable snw Diagnosis - Upper abdominal pain, unspecified snw - Nausea with vomiting, unspecified snw Followup: snw - With: Emergency Department - When: As needed - Reason: Worsening of condition Followup: snw - With: Private Physician - When: 1 - 2 days - Reason: Recheck today's complaints, Continuance of care, Re-evaluation by your physician Discharge Instructions: - Discharge Summary Sheet snw - Abdominal Pain, Adult snw - Fat and Cholesterol Restricted Eating Plan snw - Nausea and Vomiting, Adult, [id number] snw - Rehydration, Adult snw Forms: - Medication Reconciliation Form snw - Thank You Letter snw - Antibiotic Education snw - Prescription Opioid Use snw - Work release form snw Prescriptions: - Zofran 4 mg Oral Tablet - take 1 tablet by ORAL route every 12 hours As needed; 20 tablet; Refills: 0, snw Product Selection Permitted - dicyclomine 20 mg Oral Tablet - take 1 tablet by ORAL route 3 times per day; 21 tablet; Refills: 0, Product snw Selection Permitted Signatures: Dispatcher [employer] EDDonna Belle Kevin, MD MD kdr Waters, Shelly, EMPLOYEE DEVELOPMENT DIRECTOR-C EMPLOYEE DEVELOPMENT DIRECTOR-Csnw Sherman Starr, RN RN bp Lakshmi Sanchez RN RN ap3 Fabby Post RN RN [id number] Jaki Nelson RN [id number]
[2022-04-20 16:42] VITALS: BP 121/80; O2SAT 100
[2022-04-20 16:43] VITALS: TEMP 99.6
== END 2022-04-20 13:25 | disposition home or self-care (01) ==
LOC: ER 08:32
DX: R10.10 Upper abdominal pain, unspecified (principal); R11.2 Nausea with vomiting, unspecified
CPT/HCPCS: 85025; 36415; 84703; 83690; 80053; 87804 ×2; 74177; Q9967; C9113; J7030; J2405; 99284